=== PATIENT | female | born 1970 | race Caucasian/White ===

== ENCOUNTER 2022-11-24 09:06 | Outpatient (OUT) | payer MEDICARE, MEDICAID, SELFPAY ==
[2022-11-24 09:47] LABS: Estimated Average Glucose 174 mg/dL; Glycohemoglobin A1C 7.7 % (4.5-6.2)
[2022-11-24 10:36] LABS: Anion Gap 10.1; BUN Creatinine Ratio 10.7; Calcium 8.7 mg/dL (8.5-10.1); Carbon Dioxide 29.8 mmol/L (21.0-32.0); Chloride 103 mmol/L (98-107); Estimated GFR (African America >60 (>=60); Estimated GFR (Non-African Ame >60 (>=60); Glucose 181 mg/dL (74-106); Potassium 3.9 mmol/L (3.5-5.1); Sodium 139 mmol/L (136-145)
== END 2022-11-24 09:07 ==
PROVIDERS: PCP Nurse Practitioner; Visit Provider Nurse Practitioner
DX: E11.69 Type 2 diabetes mellitus with other specified complication (principal)
CPT/HCPCS: 36415; 80048; 83036

== ENCOUNTER 2023-03-10 06:42 | Outpatient (OUT) | payer MEDICARE, MEDICAID, SELFPAY ==
[2023-03-10 07:00] LABS: Bilirubin Urine NEGATIVE (NEGATIVE); Blood Urine NEGATIVE (NEGATIVE); Clarity Urine CLEAR (CLEAR); Color Urine LT. YELLOW (YELLOW); Glucose Urine UA >=1000 mg/dL (NEGATIVE); Ketones Urine 15 mg/dL (NEGATIVE); Leukocyte Esterase Urine NEGATIVE (NEGATIVE); Nitrite Urine NEGATIVE (NEGATIVE); Protein Urine NEGATIVE (NEG/TRACE); Urobilinogen Urine 0.2 EU/dL (0.2-1.0)
[2023-03-10 07:04] LABS: Basophils Absolute Auto 0.1 10^3/uL (0.0-0.1); Basophils Percent Auto 0.5 % (0.2-2.0); Eosinophils Absolute Auto 0.1 10^3/uL (0.0-0.7); Hemoglobin 15.1 g/dL (12.0-16.0); Immature Granulocytes Abs Auto 0.04 10^3/uL (0.00-0.03); Immature Granulocytes Pct Auto 0.4 % (0.0-0.5); Lymphocytes Absolute Auto 1.9 10^3/uL (1.2-3.8); Lymphocytes Percent Auto 20.1 % (20.5-60.0); Mean Corpuscular HGB Conc 31.5 g/dL (29.9-35.2); Mean Corpuscular Hemoglobin 29.2 pg (26.7-34.0); Mean Corpuscular Volume 92.7 fL (81.0-99.0); Monocytes Absolute Auto 0.6 10^3/uL (0.3-0.8); Monocytes Percent Auto 6.5 % (1.7-12.0); Neutrophils Absolute Auto 6.9 10^3/uL (1.4-6.5); Neutrophils Percent Auto 71.5 % (43.0-75.0); Platelet Count 285 10^3/uL (150-450); Red Blood Count 5.18 10^6/uL (4.20-5.40); Red Cell Distribution Width 13.4 % (11.0-15.0); White Blood Count 9.7 10^3/uL (4.0-11.0)
[2023-03-10 07:07] LABS: Bacteria Urine NONE SEEN #/HPF (NONE SEEN); Cast Seen? NONE SEEN #/LPF (NONE SEEN); Crystals Seen? None Seen #/HPF (None Seen); Mucus Urine NONE SEEN (NONE SEEN); RBC Urine 0-2 #/HPF (0-2); Squamous Epithelial Cell Urine NONE SEEN #/LPF (NONE/RARE); Urine Culture Indicated NO; WBC Urine 0-2 #/HPF (NONE SEEN)
[2023-03-10 07:11] LABS: Microalbumin Urine Random <1.3 mg/dL (<=30.0)
[2023-03-10 07:13] LABS: Estimated Average Glucose 137 mg/dL; Glycohemoglobin A1C 6.4 % (4.5-6.2)
[2023-03-10 07:38] LABS: Alanine Aminotransferase 33 U/L (14-59); Albumin Globulin Ratio 0.8; Albumin Level 3.4 g/dL (3.4-5.0); Alkaline Phosphatase 116 U/L (46-116); Anion Gap 13.5; Aspartate Amino Transferase 18 U/L (15-37); BUN Creatinine Ratio 18.5; Bilirubin Total 0.6 mg/dL (0.2-1.0); Calcium 9.2 mg/dL (8.5-10.1); Carbon Dioxide 29.2 mmol/L (21.0-32.0); Chloride 101 mmol/L (98-107); Chol HDL Ratio 3.1; Cholesterol 129 mg/dL (<=200); Estimated GFR (African America >60 (>=60); Estimated GFR (Non-African Ame >60 (>=60); Globulin 4.1 g/dL; Glucose 150 mg/dL (74-106); HDL Cholesterol 41 mg/dL (40-60); LDL Cholesterol Calculated 58.4 mg/dL; Potassium 3.7 mmol/L (3.5-5.1); Sodium 140 mmol/L (136-145); Total Protein 7.5 g/dL (6.4-8.2); Triglycerides 148 mg/dL (<=150); Uric Acid 4.3 mg/dL (2.6-6.0); VLDL CHOLESTEROL 29.6 mg/dL
== END 2023-03-10 06:43 | disposition home or self-care (01) ==
LOC: LAB 06:43
PROVIDERS: PCP Nurse Practitioner; Visit Provider Nurse Practitioner
DX: D64.9 Anemia, unspecified (principal); E11.69 Type 2 diabetes mellitus with other specified complication; E66.9 Obesity, unspecified; M10.9 Gout, unspecified; D50.9 Iron deficiency anemia, unspecified
CPT/HCPCS: 36415; 80053; 80061; 81001; 82043; 82306; 82728; 83036; 83540; 84550; 85025

== ENCOUNTER 2023-10-02 08:02 | Outpatient (OUT) | payer MEDICARE, MEDICAID, SELFPAY ==
[2023-10-02 11:44] LABS: Estimated Average Glucose 134 mg/dL; Glycohemoglobin A1C 6.3 % (4.5-6.2)
== END 2023-10-02 08:03 | disposition home or self-care (01) ==
LOC: LAB 08:04
PROVIDERS: PCP Nurse Practitioner; Visit Provider Nurse Practitioner
DX: E11.9 Type 2 diabetes mellitus without complications (principal)
CPT/HCPCS: 36415; 83036

== ENCOUNTER 2024-01-01 07:57 | Outpatient (OUT) | payer MEDICARE, MEDICAID, SELFPAY ==
--- OUTSIDE RECORDS SUMMARY | 2024-01-01 08:04 | XMS_ITS | CCD ---
Author Organization [facility] Care Team Providers Care Product Technology Scientist Name Role Phone AICHHOLZ, QUILLER OPERATOR ELVIA Attending Unavailable AICHHOLZ, QUILLER OPERATOR ELVIA Consulting Unavailable AICHHOLZ, QUILLER OPERATOR ELVIA Primary Care Unavailable AICHHOLZ, QUILLER OPERATOR ELVIA Admitting Unavailable AICHHOLZ, QUILLER OPERATOR ELVIA Consulting Unavailable AICHHOLZ, QUILLER OPERATOR ELVIA Primary Care Unavailable AICHHOLZ, QUILLER OPERATOR ELVIA Admitting Unavailable AICHHOLZ, QUILLER OPERATOR ELVIA Attending Unavailable AICHHOLZ, QUILLER OPERATOR ELVIA Consulting Unavailable AICHHOLZ, QUILLER OPERATOR ELVIA Primary Care Unavailable AICHHOLZ, QUILLER OPERATOR ELVIA Admitting Unavailable AICHHOLZ, QUILLER OPERATOR ELVIA Attending Unavailable AICHHOLZ, QUILLER OPERATOR ELVIA Consulting Unavailable AICHHOLZ, QUILLER OPERATOR ELVIA Primary Care Unavailable AICHHOLZ, QUILLER OPERATOR ELVIA Admitting Unavailable AICHHOLZ, QUILLER OPERATOR ELVIA Attending Unavailable Aichholz SEARCH PLANNER, Elvia Unavailable Ritesh Cain MD Primary Care Provider AICHHOLZ, ELVIA Attending Unavailable AICHHOLZ, ELVIA Attending Unavailable AICHHOLZ, ELVIA Attending Unavailable Allergies Allergy Classification Reported Allergen(s) Allergy Type Date of Onset Reaction(s) Facility (1 source) Codeine Drug Allergy [facility] (1 source) meloxicam Drug Allergy [facility] (1 source) Codeine Drug Allergy 02-28-2023 [facility] (1 source) meloxicam Drug Allergy 02-28-2023 [facility] Medications Current Medications Medication Drug Class(es) Dates Sig (Normalized) Sig (Original) allopurinol 100 mg oral tablet (1 source) Xanthine Oxidase Inhibitor Start: 06-28-19 End: 09-26-19 24 take 1 tablet by mouth in the morning allopurinol (Zyloprim) 100 MG tablet Indications: Gout, unspecified cause, unspecified chronicity, unspecified site Take 1 tablet (100 mg) by mouth in the morning. 90 tablet 1 06/28/2023 09/26/2023 Active atenolol 50 mg oral tablet (1 source) beta-Adrenergic Rupesh take 1 tablet by mouth in the morning atenolol (Tenormin) 50 MG tablet Take 50 mg by mouth in the morning. 0 Active atorvastatin 40 mg oral tablet (1 source) HMG-CoA Reductase Inhibitor Start: 07-16-19 End: 10-14-19 24 take 1 tablet by mouth in the morning atorvastatin (Lipitor) 40 MG tablet Indications: Mixed hyperlipidemia (CMS/HCC) Take 1 tablet (40 mg) by mouth in the morning. 90 tablet 1 07/16/2023 10/14/2023 Active Blood Glucose Monitoring Suppl w/Device kit (1 source) Blood Glucose Monitoring Suppl w/Device kit cetirizine hydrochloride 10 mg oral tablet (1 source) Histamine-1 Receptor Antagonist cetirizine (ZyrTEC) 10 MG tablet Take by mouth. 0 Active cholecalciferol 0.125 mg oral capsule (1 source) Vitamin D take 1 capsule by mouth in the morning cholecalciferol (Vitamin D-3) 125 MCG (5000 UT) capsule Take 5,000 Units by mouth in the morning. 0 Active Continuous Blood Gluc Consumer Analyst (FreeStyle Katherine 2 [place]) device (1 source) Continuous Blood Gluc Consumer Analyst (FreeStyle Katherine 2 [place]) device Continuous Blood Gluc Sensor (FreeStyle Katherine 2 Sensor) misc (1 source) Continuous Blood Gluc Sensor (FreeStyle Katherine 2 Sensor) misc empagliflozin 25 mg oral tablet (1 source) Sodium-Glucose Cotransporter 2 Inhibitor empagliflozin (Jardiance) 25 MG Take by mouth. 0 Active ferrous sulfate 325 mg delayed release oral tablet (1 source) ferrous sulfate 325 (65 Fe) MG EC tablet Take 325 mg by mouth in the morning and 325 mg at noon and 325 mg in the evening. Take with meals. Do not crush, chew, or split. . 0 Active fluconazole 150 mg oral tablet (1 source) Azole Antifungal Start: 06-12-19 24 fluconazole (Diflucan) 150 MG tablet Indications: Antibiotic-induced yeast infection 1 time dose, may repeat in 3 days if needed for yeast infection caused by atb 1 tablet 0 06/12/2023 Active glipiZIDE 5 mg oral tablet (1 source) Sulfonylurea Start: 06-12-19 24 take 1 tablet by mouth in the morning glipiZIDE (Glucotrol) 5 MG tablet Indications: Type 2 diabetes mellitus without complication, without long-term current use of insulin (CMS/HCC) Take 1 tablet (5 mg) by mouth in the morning. 30 tablet 5 06/12/2023 Active hydroCHLOROthiazide 25 mg oral tablet (1 source) Thiazide Diuretic take 1 tablet by mouth in the morning hydroCHLOROthiazide (HYDRODiuril) 25 MG tablet Take 25 mg by mouth in the morning. 0 Active lisinopril 40 mg oral tablet (1 source) Angiotensin Converting Enzyme Inhibitor take 1 tablet by mouth in the morning lisinopril 40 MG tablet Take 40 mg by mouth in the morning. 0 Active nystatin 459847 unt/ml topical cream (1 source) Polyene Antifungal nystatin (Mycostatin ) cream Apply topically 3 (three) times a day. 0 Active pantoprazole 40 mg delayed release oral tablet (1 source) Proton Pump Inhibitor take 1 tablet by mouth before mealtime pantoprazole (ProtoNix) 40 MG EC tablet Take 40 mg by mouth in the morning. Take before meals. Do not crush, chew, or split. . 0 Active polyethylene glycol 3350 99949 mg powder for oral solution (1 source) Osmotic Laxative polyethylene gl ycol, PEG, 3350 (Miralax) 17 g packet Take by mouth. 0 Active semaglutide 3 mg oral tablet (2 sources) take 1 tablet by mouth before mealtime semaglutide (Rybelsus) 3 MG tablet Take 3 mg by mouth in the morning. Take before meals. 0 Active take 1 tablet by mouth before me altime semaglutide (Rybelsus) 7 MG tablet Take 7 mg by mouth in the morning. Take before meals. 0 Active venlafaxine 75 mg oral tablet (1 source) Serotonin and Norepinephrine Reuptake Inhibitor take 1 tablet by mouth in the morning venlafaxine (Effexor) 75 MG tablet Take 75 mg by mouth in the morning and 75 mg before bedtime. 0 Active Problems Active Problems Problem Classification Problem Date Documented Da te Episodic/Chronic Diabetes mellitus with complications (5 sources) Type 2 diabetes mellitus with other specified complication; Translations: [TYPE 2 DM W/OTHER SPEC COMPLICATION] Onset: 2 Chronic Diabetes mellitus without complication (1 source) Type 2 diabetes mellitus without complication; Translations: [Type 2 diabetes mellitus without complications] Onset: 4 06-12-2023 Chronic Disorders of lipid metabolism (2 sources) Hyperlipidemia, unspecified; Translations: [Mixed hyperlipidemia] Onset: 2 06-12-2023 Chronic Disorders of teeth and jaw (1 source) Dental abscess; Translations: [Periapical abscess without sinus] Onset: 4 06-12-2023 Episodic Esophageal disorders (1 source) Gastroesophageal reflux disease; Translations: [Gastro-esophageal reflux disease without esophagitis] Onset: 4 06-12-2023 Chronic Essential hypertension (1 source) Benign essential hypertension; Translations: [Essential (primary) hypertension] Onset: 4 06-12-2023 Chronic Genitourinary symptoms and ill-defined conditions (5 sources) Dysuria; Translations: [Unspecified symptoms and signs involving the genitourinary system] Onset: 2 Episodic Gout and other crystal arthropathies (5 sources) Gout, unspecified; Translations: [Gout] Onset: 2 Chronic Mood disorders (2 sources) Recurrent major depressive episodes, moderate ; Translations: [Major depressive disorder, recurrent, moderate] Onset: 7 07-26-2023 Chronic Mycoses (1 source) Opportunistic mycosis; Translations: [Candidiasis, unspecified] Onset: 4 06-12-2023 Episodic Other gastrointestinal disorders (1 source) Constipation; Translations: [Constipation, unspecified] Onset: 4 06-12-2023 Episodic Other non-traumatic joint disorders (1 source) Pain in unspecified joint; Translations: [PAIN IN UNSPECIFIED JOINT] Onset: 2 Episodic Other nutritional; endocrine; and metabolic disorders (1 source) Morbid obesity; Translations: [Morbid (severe) obesity due to excess calories] Onset: 4 06-12-2023 Chronic Other screening for suspected conditions (not mental disorders or infectious disease) (3 sources) Patient encounter status; Translations: [Encounter for screening for malignant neoplasm of colon] Onset: 4 Resolved: 4 06-12-2023 Episodic Past or Other Problems Problem Classification Problem Date Documented Da te Episodic/Chronic Deficiency and other anemia (4 sources) Iron deficiency anemia, unspecified; Translations: [IRON DEFICIENCY ANEMIA UNSPECIFIED] Onset: 07-07-2021 Episodic Results Test Name Value Interpretation Reference Range Facility CULTURE URINEon 04-11-2022 CULTURE URINE Culture Observations: LIGHT GROWTH OF MIXED GENITAL SYL. NO POTENTIAL PATHOGENS SEEN. Normal [facility] Comment on above: Performed By: #### C MP, LIPID, URIC #### [facility] [address] [address] [address] Pearl Young LIPID PROFILEon 03-28-2022 CHOL-HDL RATIO NORM SEE BELOW Normal [facility] Comment on above: Result Comment: 3.3 - 4.4 LOW RISK 4.4 - 7.1 AVERAGE RISK 7.1 - 11.0 MODERATE RISK >11.0 HIGH RISK Performed By: #### C MP, LIPID, URIC #### [facility] [address] [address] [address] Pearl Young Cholesterol [Mass/Vol] 164 mg/dL Normal <=200 Th [facility] Comment on above: Performed By: #### C MP, LIPID, URIC #### [facility] [address] [address] [address] Pearl Young Cholesterol in HDL [Mass/Vol] 43 mg/dL Normal 40-60 [facility] Comment on above: Performed By: #### C MP, LIPID, URIC #### [facility] [address] [address] [address] Pearl Young Cholesterol in LDL [Mass/Vol] 93.8 mg/dL Normal [facility] Comment on above: Performed By: #### C MP, LIPID, URIC #### [facility] [address] [address] [address] Pearl Young Cholesterol.total/Chol esterol in HDL [Mass ratio] 3.8 {ratio} Normal [facility] Comment on above: Performed By: #### C MP, LIPID, URIC #### [facility] [address] [address] [address] Pearl Young HDL NORMAL > or = 60 mg/dl - LOW CARDIOVASCULAR RISK <40 mg/dl - HIGH CARDIOVASCULAR RISK Normal [facility] Comment on above: Performed By: #### C MP, LIPID, URIC #### [facility] [address] [address] [address] Pearl Young LDL CALC NORMAL SEE BELOW Normal [facility] Comment on above: Result Comment: <100 mg/dl OPTIMAL 100 - 129 mg/dl NEAR OR ABOVE OPTIMAL 130 - 159 mg/dl BORDERLINE HIGH 160 - 189 mg/dl HIGH >190 mg/dl VERY HIGH Performed By: #### C MP, LIPID, URIC #### [facility] [address] [address] [address] Pearl Young Triglyceride [Mass/Vol] 136 mg/dL Normal <=150 [facility] Comment on above: Performed By: #### C MP, LIPID, URIC #### [facility] [address] [address] [address] Pearl Young VLDL CALC 27.2 mg/dL Normal [facility] Comment on above: Performed By: #### C MP, LIPID, URIC #### [facility] [address] [address] [address] Pearl Young PROF 14(COMP METB)on 022 Albumin [Mass/Vol] 3.5 g/dL Normal 3.4-5.0 [facility] Comment on above: Performed By: #### C MP, LIPID, URIC #### [facility] [address] [address] [address] Pearl Young Albumin/Globulin [Mass ratio] 0.8 {ratio} Normal [facility] Comment on above: Performed By: #### C MP, LIPID, URIC #### [facility] [address] [address] [address] Pearl Young ALP [Catalytic activity/Vol] 117 U/L Critically high 46-116 [facility] Comment on above: Performed By: #### C MP, LIPID, URIC #### [facility] [address] [address] [address] Pearl Young ALT [Catalytic activity/Vol] 28 U/L Normal 14-59 [facility] Comment on above: Performed By: #### C MP, LIPID, URIC #### [facility] [address] [address] [address] Pearl Young Anion gap [Moles/Vol] 12.6 mmol/L Normal Th [facility] Comment on above: Performed By: #### C MP, LIPID, URIC #### [facility] [address] [address] [address] Pearl Young AST [Catalytic activity/Vol] 12 U/L Critically low 15-37 [facility] Comment on above: Performed By: #### C MP, LIPID, URIC #### [facility] [address] [address] [address] Pearl Young Bilirubin [Mass/Vol] 0.5 mg/dL Normal 0.2-1.0 [facility] Comment on above: Performed By: #### C MP, LIPID, URIC #### [facility] [address] [place] [address] Dr. Pearl oYung Calcium [Mass/Vol] 9.2 mg/dL Normal 8.5-10.1 [facility] Comment on above: Performed By: #### C MP, LIPID, URIC #### [facility] [address] [place] [address] Dr. Pearl Young Chloride [Moles/Vol] 104 mmol/L Normal 98-107 [facility] Comment on above: Performed By: #### C MP, LIPID, URIC #### [facility] [address] [place] [address] Dr. Pearl Young CO2 [Moles/Vol] 28.0 mmol/L Normal 21.0-32.0 [facility] Comment on above: Performed By: #### C MP, LIPID, URIC #### [facility] [address] [place] [address] Dr. Pearl Young Creatinine [Mass/Vol] 0.82 mg/dL Normal 0.55-1.02 [facility] Comment on above: Performed By: #### C MP, LIPID, URIC #### [facility] [address] [place] [address] Dr. Pearl Young EGFR-AF IRAQI >60 Normal >=60 [facility] Comment on above: Performed By: #### C MP, LIPID, URIC #### [facility] [address] [place] [address] Dr. Pearl Young EGFR-NON AF IRAQI >60 Normal >=60 [facility] Comment on above: Performed By: #### C MP, LIPID, URIC #### [facility] [address] [place] [address] Dr. Pearl Young Globulin (S) [Mass/Vol] 4.3 g/dL Normal [facility] Comment on above: Performed By: #### C MP, LIPID, URIC #### [facility] [address] [place] [address] Dr. Pearl Young Glucose [Mass/Vol] 170 mg/dL Critically high 74-[address] [facility] Comment on above: Performed By: #### C MP, LIPID, URIC #### [facility] [address] [place] [address] Dr. Pearl Young Potassium [Moles/Vol] 4.6 mmol/L Normal 3.5-5.1 [facility] Comment on above: Performed By: #### C MP, LIPID, URIC #### [facility] [address] [place] [address] Dr. Pearl Young Protein [Mass/Vol] 7.8 g/dL Normal 6.4-8.2 [facility] Comment on above: Performed By: #### C MP, LIPID, URIC #### [facility] [address] [place] [address] Dr. Pearl Young Sodium [Moles/Vol] 140 mmol/L Normal 136-145 [facility] Comment on above: Performed By: #### C MP, LIPID, URIC #### [facility] [address] [place] [address] Dr. Pearl Young Urea nitrogen [Mass/Vol] 14.0 mg/dL Normal 7.0-18.0 [facility] Comment on above: Performed By: #### C MP, LIPID, URIC #### [facility] [address] [place] [address] Dr. Pearl Young Urea nitrogen/Creatinine [Mass ratio] 17.1 mg/mg Normal [facility] Comment on above: Performed By: #### C MP, LIPID, URIC #### [facility] [address] [address] [address] Pearl Young SED RATE WESTERGRENon 2021 SED RATE 33 mm/hr Critically high <=20 [facility] Comment on above: Performed By: #### S EDR #### [facility] [address] [address] [address] Pearl Young URIC ACID SERUMon 03-28-2022 Urate [Mass/Vol] 4.2 mg/dL Normal 2.6-6.0 [facility] Comment on above: Performed By: #### C MP, LIPID, URIC #### [facility] [address] [place] [address] Dr. Pearl Young JUAN JOSE by IFAon 01-12-2022 Antinuclear Antibodies, IFA Negative Normal [facility] Comment on above: Result Comment: Nega tive <1:80 Borderline 1:80 Positive >1:80 ICAP nomenclature: AC-0 For more information about Hep-2 cell patterns use ANApatterns.org, the official website for the International Consensus on Antinuclear Antibody (JUAN JOSE) Patterns (ICAP). Performed By: #### A NAIFA #### [facility] [address] [place] [address] Dr. Pearl Young ANTISTREPTOLYSIN O AB (ASO)o n 01-12-2022 Antistreptolysin O Ab 45.6 IU/mL Normal 0.0-200.0 [facility] Comment on above: Performed By: #### C MP, LIPID, URIC #### [facility] [address] [place] [address] Dr. Pearl Young RHEUMATOID FACTORon 01-13-20 RA Latex Turbid. <10.0 Normal <14.0 [facility] Comment on above: Performed By: #### C MP, LIPID, URIC #### [facility] [address] [place] [address] Dr. Pearl Young CBC AUTO DIFFon 01-10-2022 BASO # 0.1 103/ul Normal 0.0-0.1 [facility] Comment on above: Performed By: #### C BC #### [facility] [address] [address] [address] Pearl Young Basophils/100 WBC (Bld) 0.6 % Normal 0.2-2.0 [facility] Comment on above: Performed By: #### C BC #### [facility] [address] [address] [address] Pearl Young EO # 0.2 103/ul Normal 0.0-0.7 [facility] Comment on above: Performed By: #### C BC #### [facility] [address] [place] [address] Dr. Pearl Young Eosinophils/100 WBC (Bld) 1.3 % Normal 0.9-7.0 [facility] Comment on above: Performed By: #### C BC #### [facility] [address] [place] [address] Dr. Pearl Young Erythrocyte distribution width (RBC) [Ratio] 14.9 % Normal 11.0-15.0 [facility] Comment on above: Performed By: #### C BC #### [facility] [address] [place] [address] Dr. Pearl Young Hematocrit (Bld) [Volume fraction] 50.2 % Critically high 36.0-48.0 [facility] Comment on above: Performed By: #### C BC #### [facility] [address] [place] [address] Dr. Pearl Young Hemoglobin (Bld) [Mass/Vol] 15.6 g/dL Normal 12.0-16.0 [facility] Comment on above: Performed By: #### C BC #### [facility] [address] [place] [address] Dr. Pearl Young IG # 0.07 10e3/ul Critically high 0.00-0.03 [facility] Comment on above: Performed By: #### C BC #### [facility] [address] [place] [address] Dr. Pearl Young IG % 0.6 % Critically high 0.0-0.5 [facility] Comment on above: Performed By: #### C BC #### [facility] [address] [place] [address] Dr. Pearl Young LYMPH # 2.3 103/ul Normal 1.2-3.8 [facility] Comment on above: Performed By: #### C BC #### [facility] [address] [place] [address] Dr. Pearl Young Lymphocytes/100 WBC (Bld) 19.2 % Critically low 20.5-60.0 [facility] Comment on above: Performed By: #### C BC #### [facility] [address] [place] [address] Dr. Pearl Young MANUAL DIFF REQ NO Normal [facility] Comment on above: Performed By: #### C BC #### [facility] [address] [place] [address] Dr. Pearl Young MCH (RBC) [Entitic mass] 28.9 pg Normal 26.7-34.0 [facility] Comment on above: Performed By: #### C BC #### [facility] [address] [place] [address] Dr. Pearl Young MCHC (RBC) [Mass/Vol] 31.1 g/dL Normal 29.9-35.2 [facility] Comment on above: Performed By: #### C BC #### [facility] [address] [place] [address] Dr. Pearl Young MCV (RBC) [Entitic vol] 93.0 fL Normal 81.0-99.0 [facility] Comment on above: Performed By: #### C BC #### [facility] [address] [place] [address] Dr. Pearl Young MONO # 0.9 103/ul Critically high 0.3-0.8 [facility] Comment on above: Performed By: #### C BC #### [facility] [address] [place] [address] Dr. Pearl Young Monocytes/100 WBC (Bld) 7.4 % Normal 1.7-12.0 [facility] Comment on above: Performed By: #### C BC #### [facility] [address] [place] [address] Dr. Pearl Young NEUT # 8.6 103/ul Critically high 1.4-6.5 [facility] Comment on above: Performed By: #### C BC #### [facility] [address] [place] [address] Dr. Pearl Young Neutrophils/100 WBC (Bld) 70.9 % Normal 43.0-75.0 [facility] Comment on above: Performed By: #### C BC #### [facility] [address] [place] [address] Dr. Pearl Young Platelet mean volume (Bld) [Entitic vol] 10.7 fL Normal 9.5-13.5 [facility] Comment on above: Performed By: #### C BC #### [facility] [address] [place] [address] Dr. Pearl Young PLT 267 103/ul Normal 150-450 [facility] Comment on above: Performed By: #### C BC #### [facility] [address] [place] [address] Dr. Pearl Young RBC 5.40 106/ul Normal 4.20-5.40 [facility] Comment on above: Performed By: #### C BC #### [facility] [address] [place] [address] Dr. Pearl Young WBC 12.1 103/ul Critically high 4.0-11.0 [facility] Comment on above: Performed By: #### C BC #### [facility] [address] [place] [address] Dr. Pearl Young CRPon 01-10-2022 CRP 1.8 mg/dL Critically high <=1.0 [facility] Comment on above: Performed By: #### C MP, LIPID, URIC #### [facility] [address] [place] [address] Dr. Pearl Young GLYCOHEMOGLOBIN A1Con 2021 ADA RECOMMENDATION SEE BELOW Normal [facility] Comment on above: Result Comment: ADA RECOMMENDED LIMIT 4.0 - 6.0 ADA THERAPEUTIC TARGET < 7.0 ACTION SUGGESTED > 7.0 Performed By: #### C MP, LIPID, URIC #### [facility] [address] [address] [address] Pearl Young Glucose [Mass/Vol] 154 mg/dL Normal [facility] Comment on above: Performed By: #### C MP, LIPID, URIC #### [facility] [address] [place] [address] Dr. Pearl Young HbA1c (Bld) [Mass fraction] 7.0 % Critically high 4.5-6.2 [facility] Comment on above: Performed By: #### C MP, LIPID, URIC #### [facility] [address] [place] [address] Dr. Pearl Young LIPID PROFILEon 01-10-2022 CHOL-HDL RATIO NORM SEE BELOW Normal [facility] Comment on above: Result Comment: 3.3 - 4.4 LOW RISK 4.4 - 7.1 AVERAGE RISK 7.1 - 11.0 MODERATE RISK >11.0 HIGH RISK Performed By: #### C MP, LIPID, URIC #### [facility] [address] [place] [address] Dr. Pearl Young Cholesterol [Mass/Vol] 176 mg/dL Normal <=200 Th [facility] Comment on above: Performed By: #### C MP, LIPID, URIC #### [facility] [address] [place] [address] Dr. Pearl Young Cholesterol in HDL [Mass/Vol] 46 mg/dL Normal 40-60 [facility] Comment on above: Performed By: #### C MP, LIPID, URIC #### [facility] [address] [place] [address] Dr. Pearl Young Cholesterol in LDL [Mass/Vol] 103.2 mg/dL Normal [facility] Comment on above: Performed By: #### C MP, LIPID, URIC #### [facility] [address] [place] [address] Dr. Pearl Young Cholesterol.total/Chol esterol in HDL [Mass ratio] 3.8 {ratio} Normal [facility] Comment on above: Performed By: #### C MP, LIPID, URIC #### [facility] [address] [address] [address] Pearl Young HDL NORMAL > or = 60 mg/dl - LOW CARDIOVASCULAR RISK <40 mg/dl - HIGH CARDIOVASCULAR RISK Normal [facility] Comment on above: Performed By: #### C MP, LIPID, URIC #### [facility] [address] [address] [address] Pearl Young LDL CALC NORMAL SEE BELOW Normal [facility] Comment on above: Result Comment: <100 mg/dl OPTIMAL 100 - 129 mg/dl NEAR OR ABOVE OPTIMAL 130 - 159 mg/dl BORDERLINE HIGH 160 - 189 mg/dl HIGH >190 mg/dl VERY HIGH Performed By: #### C MP, LIPID, URIC #### [facility] [address] [address] [address] Pearl Young Triglyceride [Mass/Vol] 134 mg/dL Normal <=150 [facility] Comment on above: Performed By: #### C MP, LIPID, URIC #### [facility] [address] [address] [address] Pearl Young VLDL CALC 26.8 mg/dL Normal [facility] Comment on above: Performed By: #### C MP, LIPID, URIC #### [facility] [address] [address] [address] Pearl Young MICROALBUMIN, RAND URon 08-0 mALB <1.3 Normal <=30.0 [facility] Comment on above: Performed By: #### C MP, LIPID, URIC #### [facility] [address] [address] [address] Pearl Young PROF 14(COMP METB)on 022 Albumin [Mass/Vol] 3.5 g/dL Normal 3.4-5.0 [facility] Comment on above: Performed By: #### C MP, LIPID, URIC #### [facility] [address] [address] [address] Pearl Young Albumin/Globulin [Mass ratio] 0.9 {ratio} Normal [facility] Comment on above: Performed By: #### C MP, LIPID, URIC #### [facility] [address] [address] [address] Pearl Young ALP [Catalytic activity/Vol] 110 U/L Normal 46-116 [facility] Comment on above: Performed By: #### C MP, LIPID, URIC #### [facility] [address] [address] [address] Pearl Young ALT [Catalytic activity/Vol] 44 U/L Normal 14-59 [facility] Comment on above: Performed By: #### C MP, LIPID, URIC #### [facility] [address] [place] [address] Dr. Pearl Young Anion gap [Moles/Vol] 11.6 mmol/L Normal [facility] Comment on above: Performed By: #### C MP, LIPID, URIC #### [facility] [address] [place] [address] Dr. Pearl Young AST [Catalytic activity/Vol] 21 U/L Normal 15-37 [facility] Comment on above: Performed By: #### C MP, LIPID, URIC #### [facility] [address] [place] [address] Dr. Pearl Young Bilirubin [Mass/Vol] 0.7 mg/dL Normal 0.2-1.0 [facility] Comment on above: Performed By: #### C MP, LIPID, URIC #### [facility] [address] [place] [address] Dr. Pearl Young Calcium [Mass/Vol] 9.3 mg/dL Normal 8.5-10.1 [facility] Comment on above: Performed By: #### C MP, LIPID, URIC #### [facility] [address] [place] [address] Dr. Pearl Young Chloride [Moles/Vol] 103 mmol/L Normal 98-107 [facility] Comment on above: Performed By: #### C MP, LIPID, URIC #### [facility] [address] [place] [address] Dr. Pearl Young CO2 [Moles/Vol] 30.6 mmol/L Normal 21.0-32.0 [facility] Comment on above: Performed By: #### C MP, LIPID, URIC #### [facility] [address] [address] [address] Pearl Young Creatinine [Mass/Vol] 0.82 mg/dL Normal 0.55-1.02 [facility] Comment on above: Performed By: #### C MP, LIPID, URIC #### [facility] [address] [address] [address] Pearl Young EGFR-AF IRAQI >60 Normal >=60 [facility] Comment on above: Performed By: #### C MP, LIPID, URIC #### [facility] [address] [address] [address] Pearl Young EGFR-NON AF IRAQI >60 Normal >=60 [facility] Comment on above: Performed By: #### C MP, LIPID, URIC #### [facility] [address] [address] [address] Pearl Young Globulin (S) [Mass/Vol] 4.1 g/dL Normal [facility] Comment on above: Performed By: #### C MP, LIPID, URIC #### [facility] [address] [address] [address] Pearl Young Glucose [Mass/Vol] 119 mg/dL Critically high 74-[address] [facility] Comment on above: Performed By: #### C MP, LIPID, URIC #### [facility] [address] [address] [address] Pearl Young Potassium [Moles/Vol] 4.2 mmol/L Normal 3.5-5.1 [facility] Comment on above: Performed By: #### C MP, LIPID, URIC #### [facility] [address] [address] [address] Pearl Young Protein [Mass/Vol] 7.6 g/dL Normal 6.4-8.2 [facility] Comment on above: Performed By: #### C MP, LIPID, URIC #### [facility] [address] [address] [address] Pearl Young Sodium [Moles/Vol] 141 mmol/L Normal 136-145 [facility] Comment on above: Performed By: #### C MP, LIPID, URIC #### [facility] [address] [place] [address] Dr. Pearl Young Urea nitrogen [Mass/Vol] 12.0 mg/dL Normal 7.0-18.0 [facility] Comment on above: Performed By: #### C MP, LIPID, URIC #### [facility] [address] [address] [address] Pearl Young Urea nitrogen/Creatinine [Mass ratio] 14.6 mg/mg Normal [facility] Comment on above: Performed By: #### C MP, LIPID, URIC #### [facility] [address] [place] [address] Dr. Pearl Young SED RATE [facility] 2021 SED RATE 37 mm/hr Critically high <=20 [facility] Comment on above: Performed By: #### S EDR #### [facility] [address] [place] [address] Dr. Pearl Young UA RANDOM W/MICROSCOPICon BACTERIA NONE SEEN Normal NONE SEEN [facility] Comment on above: Performed By: #### C MP, LIPID, URIC #### [facility] [address] [place] [address] Dr. Pearl Young Bilirubin Ql (U) Negative Normal NEGATIVE [facility] Comment on above: Performed By: #### C MP, LIPID, URIC #### [facility] [address] [place] [address] Dr. Pearl Young CAST SEEN Abnormal NONE SEEN [facility] Comment on above: Performed By: #### C MP, LIPID, URIC #### [facility] [address] [place] [address] Dr. Pearl Young Clarity (U) CLEAR Normal CLEAR [facility] Comment on above: Performed By: #### C MP, LIPID, URIC #### [facility] [address] [place] [address] Dr. Pearl Young Color (U) YELLOW Normal YELLOW [facility] Comment on above: Performed By: #### C MP, LIPID, URIC #### [facility] [address] [address] [address] Pearl Young Crystals LM Nom (Urine sed) NONE SEEN Normal NONE SEEN [facility] Comment on above: Performed By: #### C MP, LIPID, URIC #### [facility] [address] [address] [address] Pearl Young Epithelial cells LM Ql (Urine sed) RARE Normal NONE SEEN /RARE [facility] Comment on above: Performed By: #### C MP, LIPID, URIC #### [facility] [address] [place] [address] Dr. Pearl Young Glucose Ql (U) >1000 Abnormal NEGATIVE [facility] Comment on above: Performed By: #### C MP, LIPID, URIC #### [facility] [address] [place] [address] Dr. Pearl Young Hemoglobin Ql (U) Negative Normal NEGATIVE [facility] Comment on above: Performed By: #### C MP, LIPID, URIC #### [facility] [address] [address] [address] Pearl Young HYALINE CAST RARE Normal [facility] Comment on above: Performed By: #### C MP, LIPID, URIC #### [facility] [address] [place] [address] Dr. Pearl Young Ketones Ql (U) Negative Normal NEGATIVE [facility] Comment on above: Performed By: #### C MP, LIPID, URIC #### [facility] [address] [address] [address] Pearl Young LEUKOCYTES Negative Normal NEGATIVE [facility] Comment on above: Performed By: #### C MP, LIPID, URIC #### [facility] [address] [place] [address] Dr. Pearl Young MUCOUS TRACE Abnormal NONE SEEN [facility] Comment on above: Performed By: #### C MP, LIPID, URIC #### [facility] [address] [place] [address] Dr. Pearl Young Nitrite Ql (U) Negative Normal NEGATIVE [facility] Comment on above: Performed By: #### C MP, LIPID, URIC #### [facility] [address] [place] [address] Dr. Pearl Young pH (U) 6.0 [pH] Normal 5-9 [facility] Comment on above: Performed By: #### C MP, LIPID, URIC #### [facility] [address] [place] [address] Dr. Pearl Young RBC NONE SEEN Abnormal 0-2 [facility] Comment on above: Performed By: #### C MP, LIPID, URIC #### [facility] [address] [place] [address] Dr. Pearl Young SPEC GRAVITY 1.020 Normal 1.005-<=1.025 [facility] Comment on above: Performed By: #### C MP, LIPID, URIC #### [facility] [address] [place] [address] Dr. Pearl Young UA PROTEIN Negative Normal NEGATIVE/ TRACE [facility] Comment on above: Performed By: #### C MP, LIPID, URIC #### [facility] [address] [place] [address] Dr. Pearl Young Urobilinogen Qn (U) 0.2 {Jenny'U}/dL Normal 0.2 - 1. 0 [facility] Comment on above: Performed By: #### C MP, LIPID, URIC #### [facility] [address] [place] [address] Dr. Pearl Young WBC NONE SEEN Normal NONE SEEN [facility] Comment on above: Performed By: #### C MP, LIPID, URIC #### [facility] [address] [place] [address] Dr. Pearl Young URIC ACID SERUMon 01-10-2022 Urate [Mass/Vol] 6.1 mg/dL Critically high 2.6-6.0 [facility] Comment on above: Performed By: #### C MP, LIPID, URIC #### [facility] [address] [place] [address] Dr. Pearl Young CULTURE URINEon 07-09-2021 CULTURE URINE Isolate 1 Klebsiella pneumoniae 80,000 cfu/mL of ORGANISM 1 Klebsiella pneumoniae ANTIBIOTIC M.I.C RX STATUS Ampicillin >=32 R F Ampicillin/Sulbactam 4 S F Piperacillin/Tazobac rosario <=4 S F Cefazolin <=4 S F Ceftazidime <=1 S F Ceftriaxone <=1 S F Ertapenem <=0.5 S F Imipenem <=0.25 S F Amikacin <=2 S F Gentamicin <=1 S F Tobramycin <=1 S F Ciprofloxacin <=0.25 S F Levofloxacin <=0.12 S F Nitrofurantoin 64 I F Trimethoprim/Sulfame thoxazole <=20 S F Normal [facility] Comment on above: Performed By: #### C MP, LIPID, URIC #### [facility] [address] [place] [address] Dr. Pearl Young CBC AUTO DIFFon 07-07-2021 BASO # 0.1 103/ul Normal 0.0-0.1 [facility] Comment on above: Performed By: #### C MP, LIPID, URIC #### [facility] [address] [address] [address] Pearl Young Basophils/100 WBC (Bld) 0.6 % Normal 0.2-2.0 [facility] Comment on above: Performed By: #### C MP, LIPID, URIC #### [facility] [address] [place] [address] Dr. Pearl Young EO # 0.2 103/ul Normal 0.0-0.7 [facility] Comment on above: Performed By: #### C MP, LIPID, URIC #### [facility] [address] [address] [address] Pearl Young Eosinophils/100 WBC (Bld) 1.2 % Normal 0.9-7.0 [facility] Comment on above: Performed By: #### C MP, LIPID, URIC #### [facility] [address] [place] [address] Dr. Pearl Young Erythrocyte distribution width (RBC) [Ratio] 17.6 % Critically high 11.0-15.0 [facility] Comment on above: Performed By: #### C MP, LIPID, URIC #### [facility] [address] [place] [address] Dr. Pearl Young Hematocrit (Bld) [Volume fraction] 49.4 % Critically high 36.0-48.0 [facility] Comment on above: Performed By: #### C MP, LIPID, URIC #### [facility] [address] [place] [address] Dr. Pearl Young Hemoglobin (Bld) [Mass/Vol] 15.6 g/dL Normal 12.0-16.0 [facility] Comment on above: Performed By: #### C MP, LIPID, URIC #### [facility] [address] [place] [address] Dr. Pearl Young IG # 0.10 10e3/ul Critically high 0.00-0.03 [facility] Comment on above: Performed By: #### C MP, LIPID, URIC #### [facility] [address] [place] [address] Dr. Pearl Young IG % 0.8 % Critically high 0.0-0.5 [facility] Comment on above: Performed By: #### C MP, LIPID, URIC #### [facility] [address] [place] [address] Dr. Pearl Young LYMPH # 2.1 103/ul Normal 1.2-3.8 [facility] Comment on above: Performed By: #### C MP, LIPID, URIC #### [facility] [address] [place] [address] Dr. Pearl Young Lymphocytes/100 WBC (Bld) 16.7 % Critically low 20.5-60.0 [facility] Comment on above: Performed By: #### C MP, LIPID, URIC #### [facility] [address] [place] [address] Dr. Pearl Young MANUAL DIFF REQ NO Normal [facility] Comment on above: Performed By: #### C MP, LIPID, URIC #### [facility] [address] [place] [address] Dr. Pearl Young MCH (RBC) [Entitic mass] 28.4 pg Normal 26.7-34.0 [facility] Comment on above: Performed By: #### C MP, LIPID, URIC #### [facility] [address] [place] [address] Dr. Pearl Young MCHC (RBC) [Mass/Vol] 31.6 g/dL Normal 29.9-35.2 [facility] Comment on above: Performed By: #### C MP, LIPID, URIC #### [facility] [address] [place] [address] Dr. Pearl Young MCV (RBC) [Entitic vol] 89.8 fL Normal 81.0-99.0 [facility] Comment on above: Performed By: #### C MP, LIPID, URIC #### [facility] [address] [place] [address] Dr. Pearl Young MONO # 0.8 103/ul Normal 0.3-0.8 [facility] Comment on above: Performed By: #### C MP, LIPID, URIC #### [facility] [address] [place] [address] Dr. Pearl Young Monocytes/100 WBC (Bld) 6.7 % Normal 1.7-12.0 [facility] Comment on above: Performed By: #### C MP, LIPID, URIC #### [facility] [address] [place] [address] Dr. Pearl Young NEUT # 9.2 103/ul Critically high 1.4-6.5 [facility] Comment on above: Performed By: #### C MP, LIPID, URIC #### [facility] [address] [place] [address] Dr. Pearl Young Neutrophils/100 WBC (Bld) 74.0 % Normal 43.0-75.0 [facility] Comment on above: Performed By: #### C MP, LIPID, URIC #### [facility] [address] [place] [address] Dr. Pearl Young Platelet mean volume (Bld) [Entitic vol] 10.6 fL Normal 9.5-13.5 [facility] Comment on above: Performed By: #### C MP, LIPID, URIC #### [facility] [address] [address] [address] Pearl Young PLT 265 103/ul Normal 150-450 [facility] Comment on above: Performed By: #### C MP, LIPID, URIC #### [facility] [address] [address] [address] Pearl Yougn RBC 5.50 106/ul Critically high 4.20-5.40 [facility] Comment on above: Performed By: #### C MP, LIPID, URIC #### [facility] [address] [address] [address] Pearl Young WBC 12.4 103/ul Critically high 4.0-11.0 [facility] Comment on above: Performed By: #### C MP, LIPID, URIC #### [facility] [address] [place] [address] Dr. Pearl Young FERRITINon 07-07-2021 Ferritin [Mass/Vol] 41.0 ng/mL Normal 6.2-137.0 [facility] Comment on above: Performed By: #### F ERR, IRON #### [facility] [address] [address] [address] Pearl Young GLYCOHEMOGLOBIN A1Con 2021 ADA RECOMMENDATION ADA THERAPEUTIC TARGET 6.0 - 7.0 ACTION SUGGESTED > 7.0 Normal [facility] Comment on above: Performed By: #### C MP, LIPID, URIC #### [facility] [address] [address] [address] Pearl Young Glucose [Mass/Vol] 143 mg/dL Normal [facility] Comment on above: Performed By: #### C MP, LIPID, URIC #### [facility] [address] [address] [address] Pearl Young HbA1c (Bld) [Mass fraction] 6.6 % Critically high <=6.0 [facility] Comment on above: Performed By: #### C MP, LIPID, URIC #### [facility] [address] [place] [address] Dr. Pearl Young IRONon 07-07-2021 Iron [Mass/Vol] 166.0 ug/dL Normal 37.0-170.0 [facility] Comment on above: Performed By: #### F ERR, IRON #### [facility] [address] [address] [address] eParl Young PROF CHEM 8 (BAS METB)on Anion gap [Moles/Vol] 9.6 mmol/L Normal [facility] Comment on above: Performed By: #### B MP #### [facility] [address] [address] [address] Pearl Young Calcium [Mass/Vol] 9.5 mg/dL Normal 8.4-10.2 [facility] Comment on above: Performed By: #### B MP #### [facility] [address] [place] [address] Dr. Pearl Young Chloride [Moles/Vol] 102 mmol/L Normal 98-107 [facility] Comment on above: Performed By: #### B MP #### [facility] [address] [address] [address] Pearl Young CO2 [Moles/Vol] 31.2 mmol/L Critically high 22.0-30.0 [facility] Comment on above: Performed By: #### B MP #### [facility] [address] [place] [address] Dr. Pearl Young Creatinine [Mass/Vol] 0.78 mg/dL Normal 0.52-1.04 [facility] Comment on above: Performed By: #### B MP #### [facility] [address] [place] [address] Dr. Pearl Young EGFR-AF IRAQI >60 Normal >=60 [facility] Comment on above: Performed By: #### B MP #### [facility] [address] [address] [address] Pearl Young EGFR-NON AF IRAQI >60 Normal >=60 [facility] Comment on above: Performed By: #### B MP #### [facility] [address] [place] [address] Dr. Pearl Young Glucose [Mass/Vol] 99 mg/dL Normal 74-106 [facility] Comment on above: Performed By: #### B MP #### [facility] [address] [address] [address] Pearl Young Potassium [Moles/Vol] 3.8 mmol/L Normal 3.4-5.0 [facility] Comment on above: Performed By: #### B MP #### [facility] [address] [address] [address] Pearl Young Sodium [Moles/Vol] 139 mmol/L Normal 137-145 [facility] Comment on above: Performed By: #### B MP #### [facility] [address] [address] [address] Pearl Young Urea nitrogen [Mass/Vol] 12.0 mg/dL Normal 7.0-17.0 [facility] Comment on above: Performed By: #### B MP #### [facility] [address] [address] [address] Pearl Young Urea nitrogen/Creatinine [Mass ratio] 15.4 mg/mg Normal [facility] Comment on above: Performed By: #### B MP #### [facility] [id number] Pearl Young Encounters Encounter Date Encounter Type Care Provider Facility Start: 12-20-2023 End: 12-20-2023 ambulatory ELVIA AICHHOLZ Not Available Start: 09-13-2023 End: 09-13-2023 ambulatory ELVIA AICHHOLZ Not Available Start: 07-26-2023 Refill Elvia Aichholz SEARCH PLANNER [facility] Phone[facility] Comment on above: Major depressive dis order, recurrent episode, moderate (HCC) (CMS/HCC) (Primary Dx) Start: 06-12-2023 End: 06-12-2023 ambulatory ELVIA AICHHOLZ Not Available Start: 04-11-2022 End: 04-11-2022 ambulatory QUILLER OPERATOR ELVIA AICHHOLZ Facility:[facility] Start: 03-28-2022 End: 03-29-2022 ambulatory QUILLER OPERATOR ELVIA AICHHOLZ Facility:[facility] Start: 01-10-2022 End: 01-11-2022 ambulatory QUILLER OPERATOR ELVIA MAYOALEXSANDRA Facility:[facility] Start: 07-07-2021 End: 07-08-2021 ambulatory QUILLER OPERATOR ELVIA MAYOALEXSANDRA Facility:[facility] Procedures Date Procedure Procedure Detail Performing Clinician Start: 06-12-2023 Mammography Elvia brand SEARCH PLANNER Work Phone: Start: 06-12-2023 Microscopic observat ion [Identifier] in Cervix by Cyto stain Elvia Hall SEARCH PLANNER Work Phone: Plan of Treatment Date Care Activity Detail Author Start: 06-12-2026 Screening for malign ant neoplasm of cervix [facility] Start: 04-05-2025 Glaucoma screening Diabetes: R etinopathy Screening [facility] Start: 06-12-2024 Screening for malign ant neoplasm of breast Mammogram [facility] Start: 03-10-2024 Urine screening for protein Diabetes: Urine Protein Screening [facility] Start: 12-09-2023 Influenza vaccination Influenza Vacc ine (#1) [facility] Comment on above: Postponed from 02/09 (Patient Refused) Start: 09-13-2023 End: 09-13-2023 Patient encounter procedure 09/13/2023 4:30 PM EDT Office Visit [facility] [address] [place] [id number] Elvia Hall NP [address] [place] [id number] [facility] Start: 06-09-2023 Hemoglobin A1c measurement Diabetes: Hemoglobin A1C [facility] Start: 2002 Screening for malign ant neoplasm of cervix HPV/Cotest [facility] Start: 1972 Medicare Annual Well ness (AWV) Medicare Annual Wellness (AWV) [facility] Start: 1972 Screening for malign ant neoplasm of colon [facility] Payers Date Payer Category Payer Medicaid [facility] [id number] 2022-Present [phone] [address] [place] [address] Medicaid [id number] 2020 Medicare [employer] MEDICARE ADVANTAGE [facility] MEDICARE ADVANTAGE [id number] 2020-Present [address] [place] [address] [id number] 1972 Unknown [id number] 1972 Unknown [id number] 1972 Unknown [id number] 1972 Unknown [id number] 1972 Unknown [id number] 1972 Unknown [id number] 1972 Unknown [id number] 1959 Medicaid [id number] 1959 Unknown [id number] Social History Date Type Detail Facility Start: 06-10-2023 Tobacco smoking status [facility] Ex-smoke r [facility] End: 06-11-2013 History of tobacco use Current smoker [facility] End: 06-11-2013 History of tobacco use Cigarette Smoker [facility] Start: 06-12-2023 Alcohol intake Ex-drinker (finding) [facility] Start: 06-05-2023 End: 06-12-2023 History of Social function [facility] Start: 06-05-2023 End: 06-12-2023 Humiliation, Afraid, Rape, and Kick questionnaire [HARK] [facility] Within the last year , have you been afraid of your partner or ex-partner? No [facility] How often do you att end rastafari or pentecostalism services? Patient declined [facility] Are you now , , , , never or living with a partner? [facility] How often to you hav e a drink containing alcohol? Never [facility] How hard is it for y ou to pay for the very basics like food, housing, medical care, and heating Somewhat hard [facility] Do you feel stress - tense, restless, nervous, or anxious, or unable to sleep at night because your mind is troubled all the time - these days [OSQ] To some extent [facility] (I/We) worried wheth er (my/our) food would run out before (I/we) got money to buy more. Never true [facility] Start: 06-10-2023 Alcohol Comment caffeine: coffee,sod a [facility] Start: 1970 Sex Assigned At Not on file [facility] Evaluation note Note Date & Type Note Facility Evaluation note Diagnosis Major depressive disorder, recurrent episode, moderate (HCC) (CMS/HCC)- Primary Major depressive disorder, recurrent episode, moderate documented in this encounter [facility] Summary Purpose Family History No Family History Records FoundNo Family History Records Found Advance Directives No Advanced Directives Records FoundNo Advanced Directives Records Found Additional Source Comments INFORMATION SOURCE (unrecogn ized section and content) DATE CREATED AUTHOR 04/14/2022 [facility] DATE CREATED AUTHOR AUTHOR'S ORGANIZ ATION 12/26/2023 [facility] Care Teams (unrecognized sec tion and content) Product Technology Scientist Relationship Specialty Start Date End Date Ritesh Cain MD [address] [place] [address] PCP - General Family Medicine 01/15/23 Elvia Hall NP [address] [place] [address] Nurse Practitioner Family Medicine 01/15/23 FOR RECORDS PERTAINING TO PATIENTS WHO ARE OR HAVE BEEN ENROLLED IN A CHEMICAL DEPENDENCY/SUBSTANCEABUSE PROGRAM, SOME INFORMATION MAY BE OMITTED. This clinical summary was aggregated from multiple sources. Caution should be exercised in using it in the provision of clinical care. This summary normalizes information from multiple sources, and as a consequence, information in this document may materially change the coding, format and clinical context of patient data. In addition, data may be omitted in some cases. CLINICAL DECISIONS SHOULD BE BASED ON THE PRIMARY CLINICAL RECORDS. [facility] Delivered [facility]. provides no warranty or guarantee of the accuracy or completeness of information in this document.
[2024-01-01 08:25] LABS: Basophils Percent Auto 0.4 % (0.2-2.0); Eosinophils Absolute Auto 0.2 10^3/uL (0.0-0.7); Eosinophils Percent Auto 1.9 % (0.9-7.0); Hematocrit 49.9 % (36.0-48.0); Hemoglobin 16.2 g/dL (12.0-16.0); Immature Granulocytes Abs Auto 0.05 10^3/uL (0.00-0.03); Immature Granulocytes Pct Auto 0.5 % (0.0-0.5); Lymphocytes Absolute Auto 2.3 10^3/uL (1.2-3.8); Lymphocytes Percent Auto 24.3 % (20.5-60.0); Mean Corpuscular HGB Conc 32.5 g/dL (29.9-35.2); Mean Corpuscular Hemoglobin 30.4 pg (26.7-34.0); Mean Corpuscular Volume 93.6 fL (81.0-99.0); Mean Platelet Volume 10.6 fL (9.5-13.5); Monocytes Absolute Auto 0.6 10^3/uL (0.3-0.8); Monocytes Percent Auto 6.5 % (1.7-12.0); Neutrophils Absolute Auto 6.1 10^3/uL (1.4-6.5); Neutrophils Percent Auto 66.4 % (43.0-75.0); Platelet Count 268 10^3/uL (150-450); Red Blood Count 5.33 10^6/uL (4.20-5.40); Red Cell Distribution Width 13.4 % (11.0-15.0); White Blood Count 9.3 10^3/uL (4.0-11.0)
[2024-01-01 08:39] LABS: Creatinine Urine Random 69.99 mg/dL (20.00-300.00); Microalbumin Urine Random <1.3 mg/dL (<=30.0)
[2024-01-01 08:51] LABS: Bilirubin Urine NEGATIVE (NEGATIVE); Blood Urine NEGATIVE (NEGATIVE); Clarity Urine CLEAR (CLEAR); Color Urine LT. YELLOW (YELLOW); Glucose Urine UA >=1000 mg/dL (NEGATIVE); Ketones Urine NEGATIVE (NEGATIVE); Leukocyte Esterase Urine NEGATIVE (NEGATIVE); Nitrite Urine NEGATIVE (NEGATIVE); Protein Urine NEGATIVE (NEG/TRACE); Urobilinogen Urine 0.2 EU/dL (0.2-1.0)
[2024-01-01 08:56] LABS: Urine Microscopic Indicated NO
[2024-01-01 09:11] LABS: Estimated Average Glucose 126 mg/dL
[2024-01-01 09:12] LABS: Alanine Aminotransferase 24 U/L (14-59); Albumin Globulin Ratio 0.8; Albumin Level 3.2 g/dL (3.4-5.0); Alkaline Phosphatase 113 U/L (46-116); Anion Gap 12.3; Aspartate Amino Transferase 8 U/L (15-37); BUN Creatinine Ratio 22.5; Bilirubin Total 0.5 mg/dL (0.2-1.0); Calcium 8.6 mg/dL (8.5-10.1); Carbon Dioxide 28.6 mmol/L (21.0-32.0); Chloride 104 mmol/L (98-107); Chol HDL Ratio 2.7; Cholesterol 135 mg/dL (<=200); Estimated GFR (African America >60 (>=60); Estimated GFR (Non-African Ame >60 (>=60); Globulin 3.9 g/dL; Glucose 164 mg/dL (74-106); HDL Cholesterol 50 mg/dL (40-60); Potassium 3.9 mmol/L (3.5-5.1); Sodium 141 mmol/L (136-145); Total Protein 7.1 g/dL (6.4-8.2); Triglycerides 80 mg/dL (<=150); Uric Acid 3.7 mg/dL (2.6-6.0)
== END 2024-01-01 07:58 | disposition home or self-care (01) ==
PROVIDERS: PCP Nurse Practitioner; Visit Provider Nurse Practitioner
DX: E78.2 Mixed hyperlipidemia (principal); I10 Essential (primary) hypertension; E11.9 Type 2 diabetes mellitus without complications; E56.9 Vitamin deficiency, unspecified; M10.9 Gout, unspecified; R39.9 Unspecified symptoms and signs involving the genitourinary system
CPT/HCPCS: 36415; 80053; 80061; 81003; 82043; 82306; 82570; 83036; 84550; 85025; 87086; 87150; 87186

== ENCOUNTER 2024-03-13 12:38 | Outpatient (OUT) | payer MEDICARE, MEDICAID, SELFPAY ==
--- OUTSIDE RECORDS SUMMARY | 2024-03-13 12:56 | XMS_ITS | CCD ---
Author Organization [facility] Care Team Providers Care Pull Out Operator Name Role Phone AICHHOLZ, FRONT END ENGINEER ELVIA Attending Unavailable AICHHOLZ, FRONT END ENGINEER ELVIA Consulting Unavailable AICHHOLZ, FRONT END ENGINEER ELVIA Primary Care Unavailable AICHHOLZ, FRONT END ENGINEER ELVIA Admitting Unavailable AICHHOLZ, FRONT END ENGINEER ELVIA Consulting Unavailable AICHHOLZ, FRONT END ENGINEER ELVIA Primary Care Unavailable AICHHOLZ, FRONT END ENGINEER ELVIA Admitting Unavailable AICHHOLZ, FRONT END ENGINEER ELVIA Attending Unavailable AICHHOLZ, FRONT END ENGINEER ELVIA Consulting Unavailable AICHHOLZ, FRONT END ENGINEER ELVIA Primary Care Unavailable AICHHOLZ, FRONT END ENGINEER ELVIA Admitting Unavailable AICHHOLZ, FRONT END ENGINEER ELVIA Attending Unavailable AICHHOLZ, FRONT END ENGINEER ELVIA Consulting Unavailable AICHHOLZ, FRONT END ENGINEER ELVIA Primary Care Unavailable AICHHOLZ, FRONT END ENGINEER ELVIA Admitting Unavailable AICHHOLZ, FRONT END ENGINEER ELVIA Attending Unavailable Aichholz CHARTER BOAT OPERATOR, Elvia Unavailable Ritesh Cain MD Primary Care Provider AICHHOLZ, ELVIA Attending Unavailable AICHHOLZ, ELVIA Attending Unavailable AICHHOLZ, ELVIA Attending Unavailable Allergies Allergy Classification Reported Allergen(s) Allergy Type Date of Onset Reaction(s) Facility (1 source) Codeine Drug Allergy [facility] (1 source) meloxicam Drug Allergy [facility] (1 source) Codeine Drug Allergy 02-28-2023 [facility] (1 source) meloxicam Drug Allergy 02-28-2023 [facility] Medications Current Medications Medication Drug Class(es) [...] the morning. 0 Active Continuous Blood Gluc Medical Record Specialist ([employer] [facility] [employer]) device (1 source) Continuous Blood Gluc Medical Record Specialist ([employer] [facility] [employer]) device Continuous Blood Gluc Sensor (FreeStyle Katherine [...] mouth in the morning. 0 Active nystatin 069859 unt/ml topical cream (1 source) Polyene Antifungal [...] split. . 0 Active polyethylene glycol 3350 62511 mg powder for oral solution (1 source) [...] GENITAL SYL. NO POTENTIAL PATHOGENS SEEN. Normal [facility] Comment on above: Performed By: #### C MP, LIPID, URIC #### [facility] [address] [address] [address] Pearl Young LIPID PROFILEon 03-28-2022 CHOL-HDL RATIO NORM SEE BELOW Normal [facility] Comment on above: Result Comment: 3.3 - 4.4 LOW RISK 4.4 - 7.1 AVERAGE RISK 7.1 - 11.0 MODERATE RISK >11.0 HIGH RISK Performed By: #### C MP, LIPID, URIC #### [facility] [address] [address] [address] Pearl Young Cholesterol [Mass/Vol] 164 mg/dL Normal <=200 [facility] Comment on above: Performed By: #### C MP, LIPID, URIC #### [facility] [address] [address] [address] Pearl Young Cholesterol in HDL [Mass/Vol] 43 mg/dL Normal 40-60 [facility] Comment on above: Performed By: #### C MP, LIPID, URIC #### [facility] [address] [address] [address] Pearl Young Cholesterol in LDL [Mass/Vol] 93.8 mg/dL Normal [facility] Comment on above: Performed By: #### C MP, LIPID, URIC #### [facility] [address] [address] [address] Pearl Young Cholesterol.total/Chol esterol in HDL [Mass ratio] 3.8 {ratio} Normal [facility] Comment on above: Performed By: #### C MP, LIPID, URIC #### [facility] [address] [address] [address] Pearl Young HDL NORMAL > or = 60 mg/dl - LOW CARDIOVASCULAR RISK <40 mg/dl - HIGH CARDIOVASCULAR RISK Normal [facility] Comment on above: Performed By: #### C MP, LIPID, URIC #### [facility] [address] [address] [address] Pearl Young LDL CALC NORMAL SEE BELOW Normal [facility] Comment on above: Result Comment: <100 mg/dl OPTIMAL 100 - 129 mg/dl NEAR OR ABOVE OPTIMAL 130 - 159 mg/dl BORDERLINE HIGH 160 - 189 mg/dl HIGH >190 mg/dl VERY HIGH Performed By: #### C MP, LIPID, URIC #### [facility] [address] [address] [address] Pearl Young Triglyceride [Mass/Vol] 136 mg/dL Normal <=150 [facility] Comment on above: Performed By: #### C MP, LIPID, URIC #### [facility] [address] [address] [address] Pearl Young VLDL CALC 27.2 mg/dL Normal [facility] Comment on above: Performed By: #### C MP, LIPID, URIC #### [facility] [address] [address] [address] Pearl Young PROF 14(COMP METB)on 022 Albumin [Mass/Vol] 3.5 g/dL Normal 3.4-5.0 [facility] Comment on above: Performed By: #### C MP, LIPID, URIC #### [facility] [address] [address] [address] Pearl Young Albumin/Globulin [Mass ratio] 0.8 {ratio} Normal [facility] Comment on above: Performed By: #### C MP, LIPID, URIC #### [facility] [address] [address] [address] Pearl Young ALP [Catalytic activity/Vol] 117 U/L Critically high 46-116 [facility] Comment on above: Performed By: #### C MP, LIPID, URIC #### [facility] [address] [address] [address] Pearl Young ALT [Catalytic activity/Vol] 28 U/L Normal 14-59 [facility] Comment on above: Performed By: #### C MP, LIPID, URIC #### [facility] [address] [address] [address] Pearl Young Anion gap [Moles/Vol] 12.6 mmol/L Normal [facility] Comment on above: Performed By: #### C MP, LIPID, URIC #### [facility] [address] [address] [address] Pearl Young AST [Catalytic activity/Vol] 12 U/L Critically low 15-37 [facility] Comment on above: Performed By: #### C MP, LIPID, URIC #### [facility] [address] [address] [address] Pearl Young Bilirubin [Mass/Vol] 0.5 mg/dL Normal 0.2-1.0 [facility] Comment on above: Performed By: #### C MP, LIPID, URIC #### [facility] [address] [place] [address] Dr. Pearl Young Calcium [Mass/Vol] 9.2 mg/dL Normal 8.5-10.1 [facility] Comment on above: Performed By: #### C MP, LIPID, URIC #### [facility] [address] [place] [address] Dr. Pearl Young Chloride [Moles/Vol] 104 mmol/L Normal 98-107 [facility] Comment on above: Performed By: #### C MP, LIPID, URIC #### [facility] [address] [place] [address] Dr. Pearl Young CO2 [Moles/Vol] 28.0 mmol/L Normal 21.0-32.0 [facility] Comment on above: Performed By: #### C MP, LIPID, URIC #### [facility] [address] [place] [address] Dr. Pearl Young Creatinine [Mass/Vol] 0.82 mg/dL Normal 0.55-1.02 [facility] Comment on above: Performed By: #### C MP, LIPID, URIC #### [facility] [address] [place] [address] Dr. Pearl Young EGFR-AF ECUADOREAN >60 Normal >=60 [facility] Comment on above: Performed By: #### C MP, LIPID, URIC #### [facility] [address] [place] [address] Dr. Pearl Young EGFR-NON AF ECUADOREAN >60 Normal >=60 [facility] Comment on above: Performed By: #### C MP, LIPID, URIC #### [facility] [address] [place] [address] Dr. Pearl Young Globulin (S) [Mass/Vol] 4.3 g/dL Normal [facility] Comment on above: Performed By: #### C MP, LIPID, URIC #### [facility] [address] [place] [address] Dr. Pearl Young Glucose [Mass/Vol] 170 mg/dL Critically high 74-106 [facility] Comment on above: Performed By: #### C MP, LIPID, URIC #### [facility] [address] [place] [address] Dr. Pearl Young Potassium [Moles/Vol] 4.6 mmol/L Normal 3.5-5.1 [facility] Comment on above: Performed By: #### C MP, LIPID, URIC #### [facility] [address] [place] [address] Dr. Pearl Young Protein [Mass/Vol] 7.8 g/dL Normal 6.4-8.2 [facility] Comment on above: Performed By: #### C MP, LIPID, URIC #### [facility] [address] [place] [address] Dr. Pearl Young Sodium [Moles/Vol] 140 mmol/L Normal 136-145 [facility] Comment on above: Performed By: #### C MP, LIPID, URIC #### [facility] [address] [place] [address] Dr. Pearl Young Urea nitrogen [Mass/Vol] 14.0 mg/dL Normal 7.0-18.0 [facility] Comment on above: Performed By: #### C MP, LIPID, URIC #### [facility] [address] [place] [address] Dr. Pearl Young Urea nitrogen/Creatinine [Mass ratio] 17.1 mg/mg Normal [facility] Comment on above: Performed By: #### C MP, LIPID, URIC #### [facility] [address] [address] [address] Pearl Young SED RATE WESTERGRENon 2021 SED RATE 33 mm/hr Critically high <=20 [facility] Comment on above: Performed By: #### S EDR #### [facility] [address] [address] [address] Pearl Young URIC ACID SERUMon 03-28-2022 Urate [Mass/Vol] 4.2 mg/dL Normal 2.6-6.0 [facility] Comment on above: Performed By: #### C MP, LIPID, URIC #### [facility] [address] [place] [address] Dr. Pearl Young JUAN JOSE by IFAon 01-12-2022 Antinuclear Antibodies, IFA Negative Normal [facility] Comment on above: Result Comment: Nega tive <1:80 Borderline 1:80 Positive >1:80 ICAP nomenclature: AC-0 For more information about Hep-2 cell patterns use ANApatterns.org, the official website for the International Consensus on Antinuclear Antibody (JUAN JOSE) Patterns (ICAP). Performed By: #### A NAIFA #### [facility] [address] [place] [address] Dr. Pearl Young ANTISTREPTOLYSIN O AB (ASO)o n 01-12-2022 Antistreptolysin O Ab 45.6 IU/mL Normal 0.0-200.0 [facility] Comment on above: Performed By: #### C MP, LIPID, URIC #### [facility] [address] [place] [address] Dr. Pearl Young RHEUMATOID FACTORon 01-13-20 RA Latex Turbid. <10.0 Normal <14.0 [facility] Comment on above: Performed By: #### C MP, LIPID, URIC #### [facility] [address] [place] [address] Dr. Pearl Young CBC AUTO DIFFon 01-10-2022 BASO # 0.1 103/ul Normal 0.0-0.1 [facility] Comment on above: Performed By: #### C BC #### [facility] [address] [address] [address] Pearl Young Basophils/100 WBC (Bld) 0.6 % Normal 0.2-2.0 [facility] Comment on above: Performed By: #### C BC #### [facility] [address] [address] [address] Pearl Young EO # 0.2 103/ul Normal 0.0-0.7 [facility] Comment on above: Performed By: #### C BC #### [facility] [address] [place] [address] Dr. Pearl Young Eosinophils/100 WBC (Bld) 1.3 % Normal 0.9-7.0 [facility] Comment on above: Performed By: #### C BC #### [facility] [address] [place] [address] Dr. Pearl Young Erythrocyte distribution width (RBC) [Ratio] 14.9 % Normal 11.0-15.0 [facility] Comment on above: Performed By: #### C BC #### [facility] [address] [place] [address] Dr. Pearl Young Hematocrit (Bld) [Volume fraction] 50.2 % Critically high 36.0-48.0 [facility] Comment on above: Performed By: #### C BC #### [facility] [address] [place] [address] Dr. Pearl Young Hemoglobin (Bld) [Mass/Vol] 15.6 g/dL Normal 12.0-16.0 [facility] Comment on above: Performed By: #### C BC #### [facility] [address] [place] [address] Dr. Pearl Young IG # 0.07 10e3/ul Critically high 0.00-0.03 [facility] Comment on above: Performed By: #### C BC #### [facility] [address] [place] [address] Dr. Pearl Young IG % 0.6 % Critically high 0.0-0.5 [facility] Comment on above: Performed By: #### C BC #### [facility] [address] [place] [address] Dr. Pearl Young LYMPH # 2.3 103/ul Normal 1.2-3.8 [facility] Comment on above: Performed By: #### C BC #### [facility] [address] [place] [address] Dr. Pearl Young Lymphocytes/100 WBC (Bld) 19.2 % Critically low 20.5-60.0 [facility] Comment on above: Performed By: #### C BC #### [facility] [address] [place] [address] Dr. Pearl Young MANUAL DIFF REQ NO Normal [facility] Comment on above: Performed By: #### C BC #### [facility] [address] [place] [address] Dr. Pearl Young MCH (RBC) [Entitic mass] 28.9 pg Normal 26.7-34.0 [facility] Comment on above: Performed By: #### C BC #### [facility] [address] [place] [address] Dr. Pearl Young MCHC (RBC) [Mass/Vol] 31.1 g/dL Normal 29.9-35.2 [facility] Comment on above: Performed By: #### C BC #### [facility] [address] [place] [address] Dr. Pearl Young MCV (RBC) [Entitic vol] 93.0 fL Normal 81.0-99.0 [facility] Comment on above: Performed By: #### C BC #### [facility] [address] [place] [address] Dr. Pearl Young MONO # 0.9 103/ul Critically high 0.3-0.8 [facility] Comment on above: Performed By: #### C BC #### [facility] [address] [place] [address] Dr. Pearl Young Monocytes/100 WBC (Bld) 7.4 % Normal 1.7-12.0 [facility] Comment on above: Performed By: #### C BC #### [facility] [address] [place] [address] Dr. Pearl Young NEUT # 8.6 103/ul Critically high 1.4-6.5 [facility] Comment on above: Performed By: #### C BC #### [facility] [address] [place] [address] Dr. Pearl Yougn Neutrophils/100 WBC (Bld) 70.9 % Normal 43.0-75.0 [facility] Comment on above: Performed By: #### C BC #### [facility] [address] [place] [address] Dr. Pearl Young Platelet mean volume (Bld) [Entitic vol] 10.7 fL Normal 9.5-13.5 [facility] Comment on above: Performed By: #### C BC #### [facility] [address] [place] [address] Dr. Pearl Young PLT 267 103/ul Normal 150-450 [facility] Comment on above: Performed By: #### C BC #### [facility] [address] [place] [address] Dr. Pearl Young RBC 5.40 106/ul Normal 4.20-5.40 [facility] Comment on above: Performed By: #### C BC #### [facility] [address] [place] [address] Dr. Pearl Young WBC 12.1 103/ul Critically high 4.0-11.0 [facility] Comment on above: Performed By: #### C BC #### [facility] [address] [place] [address] Dr. Pearl Young CRPon 01-10-2022 CRP 1.8 mg/dL Critically high <=1.0 [facility] Comment on above: Performed By: #### C MP, LIPID, URIC #### [facility] [address] [place] [address] Dr. Pearl Young GLYCOHEMOGLOBIN A1Con 2021 ADA RECOMMENDATION SEE BELOW Normal [facility] Comment on above: Result Comment: ADA RECOMMENDED LIMIT 4.0 - 6.0 ADA THERAPEUTIC TARGET < 7.0 ACTION SUGGESTED > 7.0 Performed By: #### C MP, LIPID, URIC #### [facility] [address] [address] [address] Pearl Yonug Glucose [Mass/Vol] 154 mg/dL Normal [facility] Comment on above: Performed By: #### C MP, LIPID, URIC #### [facility] [address] [place] [address] Dr. Pearl Young HbA1c (Bld) [Mass fraction] 7.0 % Critically high 4.5-6.2 [facility] Comment on above: Performed By: #### C MP, LIPID, URIC #### [facility] [address] [place] [address] Dr. Pearl Young LIPID PROFILEon 01-10-2022 CHOL-HDL RATIO NORM SEE BELOW Normal [facility] Comment on above: Result Comment: 3.3 - 4.4 LOW RISK 4.4 - 7.1 AVERAGE RISK 7.1 - 11.0 MODERATE RISK >11.0 HIGH RISK Performed By: #### C MP, LIPID, URIC #### [facility] [address] [place] [address] Dr. Pearl Young Cholesterol [Mass/Vol] 176 mg/dL Normal <=200 Th [facility] Comment on above: Performed By: #### C MP, LIPID, URIC #### [facility] [address] [place] [address] Dr. Pearl Young Cholesterol in HDL [Mass/Vol] 46 mg/dL Normal 40-60 [facility] Comment on above: Performed By: #### C MP, LIPID, URIC #### [facility] [address] [place] [address] Dr. Pearl Young Cholesterol in LDL [Mass/Vol] 103.2 mg/dL Normal [facility] Comment on above: Performed By: #### C MP, LIPID, URIC #### [facility] [address] [place] [address] Dr. Pearl Young Cholesterol.total/Chol esterol in HDL [Mass ratio] 3.8 {ratio} Normal [facility] Comment on above: Performed By: #### C MP, LIPID, URIC #### [facility] [address] [address] [address] Pearl Young HDL NORMAL > or = 60 mg/dl - LOW CARDIOVASCULAR RISK <40 mg/dl - HIGH CARDIOVASCULAR RISK Normal [facility] Comment on above: Performed By: #### C MP, LIPID, URIC #### [facility] [address] [address] [address] Pearl Young LDL CALC NORMAL SEE BELOW Normal [facility] Comment on above: Result Comment: <100 mg/dl OPTIMAL 100 - 129 mg/dl NEAR OR ABOVE OPTIMAL 130 - 159 mg/dl BORDERLINE HIGH 160 - 189 mg/dl HIGH >190 mg/dl VERY HIGH Performed By: #### C MP, LIPID, URIC #### [facility] [address] [address] [address] Pearl Young Triglyceride [Mass/Vol] 134 mg/dL Normal <=150 [facility] Comment on above: Performed By: #### C MP, LIPID, URIC #### [facility] [address] [address] [address] Pearl Young VLDL CALC 26.8 mg/dL Normal [facility] Comment on above: Performed By: #### C MP, LIPID, URIC #### [facility] [address] [address] [address] Pearl Young MICROALBUMIN, RAND URon 08-0 mALB <1.3 Normal <=30.0 [facility] Comment on above: Performed By: #### C MP, LIPID, URIC #### [facility] [address] [address] [address] Pearl Young PROF 14(COMP METB)on 022 Albumin [Mass/Vol] 3.5 g/dL Normal 3.4-5.0 [facility] Comment on above: Performed By: #### C MP, LIPID, URIC #### [facility] [address] [address] [address] Pearl Young Albumin/Globulin [Mass ratio] 0.9 {ratio} Normal [facility] Comment on above: Performed By: #### C MP, LIPID, URIC #### [facility] [address] [address] [address] Pearl Young ALP [Catalytic activity/Vol] 110 U/L Normal 46-116 [facility] Comment on above: Performed By: #### C MP, LIPID, URIC #### [facility] [address] [address] [address] Pearl Young ALT [Catalytic activity/Vol] 44 U/L Normal 14-59 [facility] Comment on above: Performed By: #### C MP, LIPID, URIC #### [facility] [address] [place] [address] Dr. Pearl Young Anion gap [Moles/Vol] 11.6 mmol/L Normal [facility] Comment on above: Performed By: #### C MP, LIPID, URIC #### [facility] [address] [place] [address] Dr. Pearl Young AST [Catalytic activity/Vol] 21 U/L Normal 15-37 [facility] Comment on above: Performed By: #### C MP, LIPID, URIC #### [facility] [address] [place] [address] Dr. Pearl Young Bilirubin [Mass/Vol] 0.7 mg/dL Normal 0.2-1.0 [facility] Comment on above: Performed By: #### C MP, LIPID, URIC #### [facility] [address] [place] [address] Dr. Pearl Young Calcium [Mass/Vol] 9.3 mg/dL Normal 8.5-10.1 [facility] Comment on above: Performed By: #### C MP, LIPID, URIC #### [facility] [address] [place] [address] Dr. Pearl Young Chloride [Moles/Vol] 103 mmol/L Normal 98-107 [facility] Comment on above: Performed By: #### C MP, LIPID, URIC #### [facility] [address] [place] [address] Dr. Pearl Young CO2 [Moles/Vol] 30.6 mmol/L Normal 21.0-32.0 [facility] Comment on above: Performed By: #### C MP, LIPID, URIC #### [facility] [address] [address] [address] Pearl Young Creatinine [Mass/Vol] 0.82 mg/dL Normal 0.55-1.02 [facility] Comment on above: Performed By: #### C MP, LIPID, URIC #### [facility] [address] [address] [address] Pearl Young EGFR-AF ECUADOREAN >60 Normal >=60 [facility] Comment on above: Performed By: #### C MP, LIPID, URIC #### [facility] [address] [address] [address] Pearl Young EGFR-NON AF ECUADOREAN >60 Normal >=60 [facility] Comment on above: Performed By: #### C MP, LIPID, URIC #### [facility] [address] [address] [address] Pearl Young Globulin (S) [Mass/Vol] 4.1 g/dL Normal [facility] Comment on above: Performed By: #### C MP, LIPID, URIC #### [facility] [address] [address] [address] Pearl Young Glucose [Mass/Vol] 119 mg/dL Critically high 74-106 [facility] Comment on above: Performed By: #### C MP, LIPID, URIC #### [facility] [address] [address] [address] Pearl Young Potassium [Moles/Vol] 4.2 mmol/L Normal 3.5-5.1 [facility] Comment on above: Performed By: #### C MP, LIPID, URIC #### [facility] [address] [address] [address] Pearl Young Protein [Mass/Vol] 7.6 g/dL Normal 6.4-8.2 [facility] Comment on above: Performed By: #### C MP, LIPID, URIC #### [facility] [address] [address] [address] Pearl Young Sodium [Moles/Vol] 141 mmol/L Normal 136-145 [facility] Comment on above: Performed By: #### C MP, LIPID, URIC #### [facility] [address] [place] [address] Dr. Pearl Young Urea nitrogen [Mass/Vol] 12.0 mg/dL Normal 7.0-18.0 [facility] Comment on above: Performed By: #### C MP, LIPID, URIC #### [facility] [address] [address] [address] Pearl Young Urea nitrogen/Creatinine [Mass ratio] 14.6 mg/mg Normal [facility] Comment on above: Performed By: #### C MP, LIPID, URIC #### [facility] [address] [place] [address] Dr. Pearl Young SED RATE [facility] 2021 SED RATE 37 mm/hr Critically high <=20 [facility] Comment on above: Performed By: #### S EDR #### [facility] [address] [place] [address] Dr. Pearl Young UA RANDOM W/MICROSCOPICon BACTERIA NONE SEEN Normal NONE SEEN [facility] Comment on above: Performed By: #### C MP, LIPID, URIC #### [facility] [address] [place] [address] Dr. Pearl Young Bilirubin Ql (U) Negative Normal NEGATIVE [facility] Comment on above: Performed By: #### C MP, LIPID, URIC #### [facility] [address] [place] [address] Dr. Pearl Young CAST SEEN Abnormal NONE SEEN [facility] Comment on above: Performed By: #### C MP, LIPID, URIC #### [facility] [address] [place] [address] Dr. Pearl Young Clarity (U) CLEAR Normal CLEAR [facility] Comment on above: Performed By: #### C MP, LIPID, URIC #### [facility] [address] [place] [address] Dr. Pearl Young Color (U) YELLOW Normal YELLOW [facility] Comment on above: Performed By: #### C MP, LIPID, URIC #### [facility] [address] [address] [address] Pearl Young Crystals LM Nom (Urine sed) NONE SEEN Normal NONE SEEN [facility] Comment on above: Performed By: #### C MP, LIPID, URIC #### [facility] [address] [address] [address] Pearl Young Epithelial cells LM Ql (Urine sed) RARE Normal NONE SEEN /RARE [facility] Comment on above: Performed By: #### C MP, LIPID, URIC #### [facility] [address] [place] [address] Dr. Pearl Young Glucose Ql (U) >1000 Abnormal NEGATIVE [facility] Comment on above: Performed By: #### C MP, LIPID, URIC #### [facility] [address] [place] [address] Dr. Pearl Young Hemoglobin Ql (U) Negative Normal NEGATIVE [facility] Comment on above: Performed By: #### C MP, LIPID, URIC #### [facility] [address] [address] [address] Pearl Young HYALINE CAST RARE Normal [facility] Comment on above: Performed By: #### C MP, LIPID, URIC #### [facility] [address] [place] [address] Dr. Pearl Young Ketones Ql (U) Negative Normal NEGATIVE [facility] Comment on above: Performed By: #### C MP, LIPID, URIC #### [facility] [address] [address] [address] Pearl Young LEUKOCYTES Negative Normal NEGATIVE [facility] Comment on above: Performed By: #### C MP, LIPID, URIC #### [facility] [address] [place] [address] Dr. Pearl Young MUCOUS TRACE Abnormal NONE SEEN [facility] Comment on above: Performed By: #### C MP, LIPID, URIC #### [facility] [address] [place] [address] Dr. Pearl Young Nitrite Ql (U) Negative Normal NEGATIVE [facility] Comment on above: Performed By: #### C MP, LIPID, URIC #### [facility] [address] [place] [address] Dr. Pearl Young pH (U) 6.0 [pH] Normal 5-9 [facility] Comment on above: Performed By: #### C MP, LIPID, URIC #### [facility] [address] [place] [address] Dr. Pearl Young RBC NONE SEEN Abnormal 0-2 [facility] Comment on above: Performed By: #### C MP, LIPID, URIC #### [facility] [address] [place] [address] Dr. Pearl Young SPEC GRAVITY 1.020 Normal 1.005-<=1.025 [facility] Comment on above: Performed By: #### C MP, LIPID, URIC #### [facility] [address] [place] [address] Dr. Pearl Young UA PROTEIN Negative Normal NEGATIVE/ TRACE [facility] Comment on above: Performed By: #### C MP, LIPID, URIC #### [facility] [address] [place] [address] Dr. Pearl Young Urobilinogen Qn (U) 0.2 {Jenny'U}/dL Normal 0.2 - 1. 0 [facility] Comment on above: Performed By: #### C MP, LIPID, URIC #### [facility] [address] [place] [address] Dr. Pearl Young WBC NONE SEEN Normal NONE SEEN [facility] Comment on above: Performed By: #### C MP, LIPID, URIC #### [facility] [address] [place] [address] Dr. Pearl Young URIC ACID SERUMon 01-10-2022 Urate [Mass/Vol] 6.1 mg/dL Critically high 2.6-6.0 [facility] Comment on above: Performed By: #### C MP, LIPID, URIC #### [facility] [address] [place] [address] Dr. Pearl Young CULTURE URINEon 07-09-2021 CULTURE [...] Trimethoprim/Sulfame thoxazole <=20 S F Normal [facility] Comment on above: Performed By: #### C MP, LIPID, URIC #### [facility] [address] [place] [address] Dr. Pearl Young CBC AUTO DIFFon 07-07-2021 BASO # 0.1 103/ul Normal 0.0-0.1 [facility] Comment on above: Performed By: #### C MP, LIPID, URIC #### [facility] [address] [address] [address] Pearl Young Basophils/100 WBC (Bld) 0.6 % Normal 0.2-2.0 [facility] Comment on above: Performed By: #### C MP, LIPID, URIC #### [facility] [address] [place] [address] Dr. Pearl Young EO # 0.2 103/ul Normal 0.0-0.7 [facility] Comment on above: Performed By: #### C MP, LIPID, URIC #### [facility] [address] [address] [address] Pearl Young Eosinophils/100 WBC (Bld) 1.2 % Normal 0.9-7.0 [facility] Comment on above: Performed By: #### C MP, LIPID, URIC #### [facility] [address] [place] [address] Dr. Pearl Young Erythrocyte distribution width (RBC) [Ratio] 17.6 % Critically high 11.0-15.0 [facility] Comment on above: Performed By: #### C MP, LIPID, URIC #### [facility] [address] [place] [address] Dr. Pearl Young Hematocrit (Bld) [Volume fraction] 49.4 % Critically high 36.0-48.0 [facility] Comment on above: Performed By: #### C MP, LIPID, URIC #### [facility] [address] [place] [address] Dr. Pearl Young Hemoglobin (Bld) [Mass/Vol] 15.6 g/dL Normal 12.0-16.0 [facility] Comment on above: Performed By: #### C MP, LIPID, URIC #### [facility] [address] [place] [address] Dr. Pearl Young IG # 0.10 10e3/ul Critically high 0.00-0.03 [facility] Comment on above: Performed By: #### C MP, LIPID, URIC #### [facility] [address] [place] [address] Dr. Pearl Young IG % 0.8 % Critically high 0.0-0.5 [facility] Comment on above: Performed By: #### C MP, LIPID, URIC #### [facility] [address] [place] [address] Dr. Pearl Young LYMPH # 2.1 103/ul Normal 1.2-3.8 [facility] Comment on above: Performed By: #### C MP, LIPID, URIC #### [facility] [address] [place] [address] Dr. Pearl Young Lymphocytes/100 WBC (Bld) 16.7 % Critically low 20.5-60.0 [facility] Comment on above: Performed By: #### C MP, LIPID, URIC #### [facility] [address] [place] [address] Dr. Pearl Young MANUAL DIFF REQ NO Normal [facility] Comment on above: Performed By: #### C MP, LIPID, URIC #### [facility] [address] [place] [address] Dr. Pearl Young MCH (RBC) [Entitic mass] 28.4 pg Normal 26.7-34.0 [facility] Comment on above: Performed By: #### C MP, LIPID, URIC #### [facility] [address] [place] [address] Dr. Pearl Young MCHC (RBC) [Mass/Vol] 31.6 g/dL Normal 29.9-35.2 [facility] Comment on above: Performed By: #### C MP, LIPID, URIC #### [facility] [address] [place] [address] Dr. Pearl Young MCV (RBC) [Entitic vol] 89.8 fL Normal 81.0-99.0 [facility] Comment on above: Performed By: #### C MP, LIPID, URIC #### [facility] [address] [place] [address] Dr. Pearl Young MONO # 0.8 103/ul Normal 0.3-0.8 [facility] Comment on above: Performed By: #### C MP, LIPID, URIC #### [facility] [address] [place] [address] Dr. Pearl Young Monocytes/100 WBC (Bld) 6.7 % Normal 1.7-12.0 [facility] Comment on above: Performed By: #### C MP, LIPID, URIC #### [facility] [address] [place] [address] Dr. Pearl Young NEUT # 9.2 103/ul Critically high 1.4-6.5 [facility] Comment on above: Performed By: #### C MP, LIPID, URIC #### [facility] [address] [place] [address] Dr. Pearl Young Neutrophils/100 WBC (Bld) 74.0 % Normal 43.0-75.0 [facility] Comment on above: Performed By: #### C MP, LIPID, URIC #### [facility] [address] [place] [address] Dr. Pearl Young Platelet mean volume (Bld) [Entitic vol] 10.6 fL Normal 9.5-13.5 [facility] Comment on above: Performed By: #### C MP, LIPID, URIC #### [facility] [address] [address] [address] Pearl Young PLT 265 103/ul Normal 150-450 [facility] Comment on above: Performed By: #### C MP, LIPID, URIC #### [facility] [address] [address] [address] Pearl Young RBC 5.50 106/ul Critically high 4.20-5.40 [facility] Comment on above: Performed By: #### C MP, LIPID, URIC #### [facility] [address] [address] [address] Pearl Young WBC 12.4 103/ul Critically high 4.0-11.0 [facility] Comment on above: Performed By: #### C MP, LIPID, URIC #### [facility] [address] [place] [address] Dr. Pearl Young FERRITINon 07-07-2021 Ferritin [Mass/Vol] 41.0 ng/mL Normal 6.2-137.0 [facility] Comment on above: Performed By: #### F ERR, IRON #### [facility] [address] [address] [address] Pearl Young GLYCOHEMOGLOBIN A1Con 2021 ADA RECOMMENDATION ADA THERAPEUTIC TARGET 6.0 - 7.0 ACTION SUGGESTED > 7.0 Normal [facility] Comment on above: Performed By: #### C MP, LIPID, URIC #### [facility] [address] [address] [address] Pearl Young Glucose [Mass/Vol] 143 mg/dL Normal [facility] Comment on above: Performed By: #### C MP, LIPID, URIC #### [facility] [address] [address] [address] Pearl Young HbA1c (Bld) [Mass fraction] 6.6 % Critically high <=6.0 [facility] Comment on above: Performed By: #### C MP, LIPID, URIC #### [facility] [address] [place] [address] Dr. Pearl Young IRONon 07-07-2021 Iron [Mass/Vol] 166.0 ug/dL Normal 37.0-170.0 [facility] Comment on above: Performed By: #### F ERR, IRON #### [facility] [address] [address] [address] Pearl Young PROF CHEM 8 (BAS METB)on Anion gap [Moles/Vol] 9.6 mmol/L Normal [facility] Comment on above: Performed By: #### B MP #### [facility] [address] [address] [address] Pearl Young Calcium [Mass/Vol] 9.5 mg/dL Normal 8.4-10.2 [facility] Comment on above: Performed By: #### B MP #### [facility] [address] [place] [address] Dr. Pearl Young Chloride [Moles/Vol] 102 mmol/L Normal 98-107 [facility] Comment on above: Performed By: #### B MP #### [facility] [address] [address] [address] Pearl Young CO2 [Moles/Vol] 31.2 mmol/L Critically high 22.0-30.0 [facility] Comment on above: Performed By: #### B MP #### [facility] [address] [place] [address] Dr. Pearl Young Creatinine [Mass/Vol] 0.78 mg/dL Normal 0.52-1.04 [facility] Comment on above: Performed By: #### B MP #### [facility] [address] [place] [address] Dr. Pearl Young EGFR-AF ECUADOREAN >60 Normal >=60 [facility] Comment on above: Performed By: #### B MP #### [facility] [address] [address] [address] Pearl Young EGFR-NON AF ECUADOREAN >60 Normal >=60 [facility] Comment on above: Performed By: #### B MP #### [facility] [address] [place] [address] Dr. Pearl Young Glucose [Mass/Vol] 99 mg/dL Normal 74-106 [facility] Comment on above: Performed By: #### B MP #### [facility] [address] [address] [address] Paerl Young Potassium [Moles/Vol] 3.8 mmol/L Normal 3.4-5.0 [facility] Comment on above: Performed By: #### B MP #### [facility] [address] [address] [address] Pearl Young Sodium [Moles/Vol] 139 mmol/L Normal 137-145 [facility] Comment on above: Performed By: #### B MP #### [facility] [address] [address] [address] Pearl Young Urea nitrogen [Mass/Vol] 12.0 mg/dL Normal 7.0-17.0 [facility] Comment on above: Performed By: #### B MP #### [facility] [address] [address] [address] Pearl Young Urea nitrogen/Creatinine [Mass ratio] 15.4 mg/mg Normal [facility] Comment on above: Performed By: #### B MP #### [facility] [id number] Pearl Young Encounters Encounter Date Encounter Type Care Provider Facility Start: 12-20-2023 End: 12-20-2023 ambulatory ELIVA AICHHOLZ Not Available Start: 09-13-2023 End: 09-13-2023 ambulatory ELVIA AICHHOLZ Not Available Start: 07-26-2023 Refill Elvia Aichholz [employer]TER [employer] OPERATOR Work Phone: [facility] Comment on above: Major depressive dis order, recurrent episode, moderate (HCC) (CMS/HCC) (Primary Dx) Start: 06-12-2023 End: 06-12-2023 ambulatory ELVIA AICHHOLZ Not Available Start: 04-11-2022 End: 04-11-2022 ambulatory FRONT END ENGINEER ELVIA AICHHOLZ Facility:[facility] Start: 03-28-2022 End: 03-29-2022 ambulatory FRONT END ENGINEER ELVIA AICHHOLZ Facility:[facility] Start: 01-10-2022 End: 01-11-2022 ambulatory FRONT END ENGINEER ELVIA MAYOALEXSANDRA Facility:[facility] Start: 07-07-2021 End: 07-08-2021 ambulatory FRONT END ENGINEER ELVIA MAYOALEXSANDRA Facility:[facility] Procedures Date Procedure Procedure Detail Performing Clinician Start: 06-12-2023 Mammography Elvia brand [employer]AT OPERATOR Work Phone: Start: 06-12-2023 Microscopic observat ion [Identifier] in Cervix by Cyto stain Elvia Hall [employer]TER BOAT OPERATOR Work Phone: Plan of Treatment Date Care Activity Detail Author Start: 06-12-2026 Screening for malign ant neoplasm of cervix [facility] Start: 04-05-2025 Glaucoma screening Diabetes: R etinopathy Screening [facility] Start: 06-12-2024 Screening for malign ant neoplasm of breast Mammogram [facility] Start: 03-10-2024 Urine screening for protein Diabetes: Urine Protein Screening [facility] Start: 12-09-2023 Influenza vaccination Influenza Vacc ine (#1) [facility] Comment on above: Postponed from 02/09 (Patient Refused) Start: 09-13-2023 End: 09-13-2023 Patient encounter procedure 09/13/2023 4:30 PM EDT Office Visit [facility] [address] [place] [id number] Elvia Hall NP [address] [place] [id number] [facility] Start: 06-09-2023 Hemoglobin A1c measurement Diabetes: Hemoglobin A1C [facility] Start: 2002 Screening for malign ant neoplasm of cervix HPV/Cotest [facility] Start: 1972 Medicare Annual Well ness (AWV) Medicare Annual Wellness (AWV) [facility] Start: 1972 Screening for malign ant neoplasm of colon [facility] Payers Date Payer Category Payer Medicaid [facility] [place] [id number] 2022-Present [phone] [address] [place] [address] Medicaid [id number] 2020 Medicare [employer] MEDICARE ADVANTAGE [facility] MEDICARE ADVANTAGE [id number] 2020-Present [address] [place] [address] [id number] 1972 Unknown [id number] 1972 Unknown [id number] 1972 Unknown [id number] 1972 Unknown [id number] 1972 Unknown [id number] 1972 Unknown [id number] 1972 Unknown [id number] 1959 Medicaid [id number] 1959 Unknown [id number] Social History Date Type Detail Facility Start: 06-10-2023 Tobacco smoking status ORIS Ex-smoke r [facility] End: 06-11-2013 History [...] Healthcare How often do you att end restorationism or mandaen services? Patient declined [facility] Are you [...] DATE CREATED AUTHOR AUTHOR'S ORGANIZ ATION 12/26/2023 [facility] Care Teams (unrecognized sec tion and content) Pull Out Operator Relationship Specialty Start Date End Date Ritesh Cain MD [address] [place] [address] PCP - General Family Medicine 01/15/23 Elvia Hall NP [address] [place] [address] Nurse Practitioner Family Medicine 01/15/23 [...] BE BASED ON THE PRIMARY CLINICAL RECORDS. [facility]. provides no warranty or guarantee of the accuracy or completeness of information in this document.
[2024-03-13 14:01] LABS: Bilirubin Urine NEGATIVE (NEGATIVE); Blood Urine NEGATIVE (NEGATIVE); Clarity Urine CLEAR (CLEAR); Color Urine LT. YELLOW (YELLOW); Glucose Urine UA >=1000 mg/dL (NEGATIVE); Ketones Urine NEGATIVE (NEGATIVE); Leukocyte Esterase Urine NEGATIVE (NEGATIVE); Nitrite Urine NEGATIVE (NEGATIVE); Protein Urine NEGATIVE (NEG/TRACE); Urobilinogen Urine 0.2 EU/dL (0.2-1.0)
[2024-03-13 14:04] LABS: Urine Microscopic Indicated NO
== END 2024-03-13 12:39 | disposition home or self-care (01) ==
LOC: LAB 12:38
PROVIDERS: PCP Nurse Practitioner; Visit Provider Nurse Practitioner
DX: R39.9 Unspecified symptoms and signs involving the genitourinary system (principal)
CPT/HCPCS: 81003; 87086; 87150; 87186

== ENCOUNTER 2024-04-07 12:48 | Outpatient (OUT) | payer MEDICARE, MEDICAID, SELFPAY ==
--- OUTSIDE RECORDS SUMMARY | 2024-04-07 12:56 | XMS_ITS | CCD ---
Author Organization [facility] Care Team Providers Care Assistant Basketball Coach Name Role Phone AICHHOLZ, TEST FIXTURE ASSEMBLER ELVIA Attending Unavailable AICHHOLZ, TEST FIXTURE ASSEMBLER ELVIA Consulting Unavailable AICHHOLZ, TEST FIXTURE ASSEMBLER ELVIA Primary Care Unavailable AICHHOLZ, TEST FIXTURE ASSEMBLER ELVIA Admitting Unavailable AICHHOLZ, TEST FIXTURE ASSEMBLER ELVIA Consulting Unavailable AICHHOLZ, TEST FIXTURE ASSEMBLER ELVIA Primary Care Unavailable AICHHOLZ, TEST FIXTURE ASSEMBLER ELVIA Admitting Unavailable AICHHOLZ, TEST FIXTURE ASSEMBLER ELVIA Attending Unavailable AICHHOLZ, TEST FIXTURE ASSEMBLER ELVIA Consulting Unavailable AICHHOLZ, TEST FIXTURE ASSEMBLER ELVIA Primary Care Unavailable AICHHOLZ, TEST FIXTURE ASSEMBLER ELVIA Admitting Unavailable AICHHOLZ, TEST FIXTURE ASSEMBLER ELVIA Attending Unavailable AICHHOLZ, TEST FIXTURE ASSEMBLER ELVIA Consulting Unavailable AICHHOLZ, TEST FIXTURE ASSEMBLER ELVIA Primary Care Unavailable AICHHOLZ, TEST FIXTURE ASSEMBLER ELVIA Admitting Unavailable AICHHOLZ, TEST FIXTURE ASSEMBLER ELVIA Attending Unavailable Aichholz FOREST MANAGEMENT TEACHER, Elvia Unavailable Ant MCCLURE, Ritesh Primary Care Provider [phone] Aichholz FOREST MANAGEMENT TEACHER, Elvia Unavailable Ritesh Cain MD Primary Care Provider Aichholz FOREST MANAGEMENT TEACHER, Elvia Unavailable AICHHOLZ, ELVIA Attending Unavailable AICHHOLZ, ELVIA Attending Unavailable AICHHOLZ, ELVIA Attending Unavailable AICHHOLZ, ELVIA Attending Unavailable Aichholz FOREST MANAGEMENT TEACHER, Elvia Unavailable Allergies Allergy Classification Reported Allergen(s) Allergy Type Date of Onset Reaction(s) Facility (1 source) Codeine Drug Allergy [facility] (1 source) meloxicam Drug Allergy [facility] (6 sources) Codeine Drug Allergy 02-28-2023 [facility] (6 sources) meloxicam Drug Allergy 02-28-2023 [facility] Medications Current Medications Medication Drug Class(es) Dates Sig (Normalized) Sig (Original) allopurinol 100 mg oral tablet (8 sources) Xanthine Oxidase Inhibitor Start: 12-20-2023 End: 06-18-2024 take 1 tablet by mouth in the morning allopurinol (Zyloprim) 100 MG tablet Indications: Gout, unspecified cause, unspecified chronicity, unspecified site Take 1 tablet (100 mg) by mouth in the morning. 90 tablet 1 03/20/2024 06/18/2024 Active Start: 06-28-2023 End: 09-26-2023 take 1 tablet by mouth in the morning allopurinol (Zyloprim) 100 MG tablet Indications: Gout, unspecified cause, unspecified chronicity, unspecified site Take 1 tablet (100 mg) by mouth in the morning. 90 tablet 1 06/28/2023 09/26/2023 Active amoxicillin 875 mg / clavulanate 125 mg oral tablet (4 sources) Penicillin-class Antibacterial Start: 03-10-2024 End: 03-20-2024 take 1 tablet by mouth in the morning amoxicillin-clavulanate (Augmentin) 875-125 MG tablet Indications: Urinary tract infection symptoms Take 1 tablet (875 mg) by mouth in the morning and 1 tablet (875 mg) before bedtime. Do all this for 10 days. Take with food. 20 tablet 03/10/2024 03/20/2024 Discontinued (Therapy completed) atenolol 50 mg oral tablet (8 sources) beta-Adrenergic Rupesh Start: 12-20-2023 End: 06-18-2024 take 1 tablet by mouth once daily atenolol (Tenormin) 50 MG tablet Indications: Essential hypertension, benign (CMS/HCC) Take 1 tablet (50 mg) by mouth Daily 90 tablet 1 03/20/2024 06/18/2024 Active take 1 tablet by mouth in the mo rning atenolol (Tenormin) 50 MG tablet Take 50 mg by mouth in the morning. 0 Active atorvastatin 40 mg oral tablet (8 sources) HMG-CoA Reductase Inhibitor Start: 12-20-2023 End: 06-18-2024 take 1 tablet by mouth in the evening atorvastatin (Lipitor) 40 MG tablet Indications: Mixed hyperlipidemia (CMS/HCC) Take 1 tablet (40 mg) by mouth in the evening 90 tablet 1 03/20/2024 06/18/2024 Active Start: 07-16-2023 End: 10-14-2023 take 1 tablet by mouth in the morning atorvastatin (Lipitor) 40 MG tablet Indications: Mixed hyperlipidemia (CMS/HCC) Take 1 tablet (40 mg) by mouth in the morning. 90 tablet 1 07/16/2023 10/14/2023 Active Blood Glucose Monitoring Sup pl w/Device kit (6 sources) Blood Glucose Mo nitoring Suppl w/Device kit Active Blood Glucose Mo nitoring Suppl w/Device kit cetirizine hydrochloride 10 mg oral tablet (8 sources) Histamine-1 Receptor Antagonist Start: 12-20-2023 End: 06-18-2024 take 1 tablet by mouth once daily cetirizine (ZyrTEC) 10 MG tablet Indications: Environmental and seasonal allergies Take 1 tablet (10 mg) by mouth Daily 90 tablet 1 03/20/2024 06/18/2024 Active cetirizine (ZyrT EC) 10 MG tablet Take by mouth. 0 Active cholecalciferol 0.125 mg oral capsule (1 source) Vitamin D take 1 capsule by mouth in the morning cholecalciferol (Vitamin D-3) 125 MCG (5000 UT) capsule Take 5,000 Units by mouth in the morning. 0 Active Continuous Blood Gluc Materials Management Manager (FreeStyle [place]) device (6 sources) End: 03-20-2024 Continuous Blood Gluc Materials Management Manager (FreeStyle [place]) device 03/20/2024 Discontinued (Reorder) Continuous Blood Gluc Materials Management Manager (FreeStyle [place]) device Active Continuous Blood Gluc Materials Management Manager (FreeStyle [place]) device Continuous Blood Gluc Sensor (FreeStyle Katherine 2 Sensor) misc (1 source) Continuous Blood Gluc Sensor (FreeStyle Katherine 2 Sensor) misc Continuous Glucose Materials Management Manager (FreeStyle [place]) device (2 sources) Start: 03-20-2024 End: 03-20-2025 Continuous Glucose Materials Management Manager (FreeStyle [place]) device Indications: Type 2 diabetes mellitus without complication, without long-term current use of insulin (CMS/HCC) 1 each Daily 1 each 03/20/2024 03/20/2025 Active Continuous Glucose Sensor (FreeStyle Katherine 2 Sensor) misc (7 sources) Start: 03-20-2024 End: 04-19-2024 Continuous Glucose Sensor (FreeStyle [place] 2 Sensor[place] [facility] [place]: Type 2 diabetes mellitus without complication, without long-term current use of insulin (CMS/HCC) 1 each by Other route Daily 3 each 03/20/2024 04/19/2024 Active Start: 12-21-2023 End: 03-20-2024 Continuous Glucose Sensor (F reeStyle Katherine 2 Sensor) [facility] [place]ications: Type 2 diabetes mellitus without complication, without long-term current use of insulin (CMS/HCC) 1 each by Other route in the morning and 1 each before bedtime. 3 each 12/21/2023 03/20/2024 Discontinued (Reorder) Start: 12-21-2023 Continuous Glu cose Sensor (FreeStyle Katherine 2 Sensor) [facility] [place]ications: Type 2 diabetes mellitus without complication, without long-term current use of insulin (CMS/HCC) 1 each by Other route in the morning and 1 each before bedtime. 3 each 12/21/2023 Active empagliflozin 25 mg oral tablet (8 sources) Sodium-Glucose Cotransporter 2 Inhibitor Start: 12-20-2023 End: 06-18-2024 take 1 tablet by mouth once daily empagliflozin (Jardiance) 25 MG Indications: Type 2 diabetes mellitus without complication, without long-term current use of insulin (CMS/HCC) Take 1 tablet (25 mg) by mouth Daily 90 tablet 1 03/20/2024 06/18/2024 Active empagliflozin (J ardiance) 25 MG Take by mouth. 0 Active ergocalciferol 1.25 mg oral capsule (7 sources) Provitamin D2 Compound Start: 02-19-2024 End: 06-12-2024 take 1 capsule by mouth every week, then take 1 capsule by mouth every week ergocalciferol (Vitamin D2) 1.25 MG (78905 UT) capsule Indications: Vitamin deficiency Take 1 capsule (1.25 mg) by mouth 1 (one) time per week Take 1 capsule by mouth 1 (one) time per week 12 capsule 1 03/20/2024 06/12/2024 Active ferrous sulfate 325 mg delayed release oral tablet (8 sources) Start: 12-20-2023 End: 06-18-2024 take 1 tablet by mouth at mealtime ferrous sulfate 325 (65 Fe) MG EC tablet Indications: Vitamin deficiency Take 1 tablet (325 mg) by mouth in the morning. Take with meals. 90 tablet 1 03/20/2024 06/18/2024 Active ferrous sulfate 325 (65 Fe) MG EC tablet Take 325 mg by mouth in the morning and 325 mg at noon and 325 mg in the evening. Take with meals. Do not crush, chew, or split. . 0 Active fluconazole 150 mg oral tablet (1 source) Azole Antifungal Start: 06-12-2023 fluconazole (Diflucan) 150 MG tablet Indications: Antibiotic-induced yeast infection 1 time dose, may repeat in 3 days if needed for yeast infection caused by atb 1 tablet 0 06/12/2023 Active glipiZIDE 5 mg oral tablet (8 sources) Sulfonylurea Start: 12-20-2023 End: 06-18-2024 take 0.5 tablet by mouth once daily glipiZIDE (Glucotrol) 5 MG tablet Indications: Type 2 diabetes mellitus without complication, without long-term current use of insulin (CMS/HCC) Take 0.5 tablets (2.5 mg) by mouth Daily 45 tablet 1 03/20/2024 06/18/2024 Active Start: 06-12-2023 take 1 tablet by jamarcus th in the morning glipiZIDE (Glucotrol) 5 MG tablet Indications: Type 2 diabetes mellitus without complication, without long-term current use of insulin (CMS/HCC) Take 1 tablet (5 mg) by mouth in the morning. 30 tablet 5 06/12/2023 Active hydroCHLOROthiazide 25 mg oral tablet (8 sources) Thiazide Diuretic Start: 12-20-2023 End: 06-18-2024 take 1 tablet by mouth once daily hydroCHLOROthiazide (HYDRODiuril) 25 MG tablet Indications: Essential hypertension, benign (CMS/HCC) Take 1 tablet (25 mg) by mouth Daily 90 tablet 1 03/20/2024 06/18/2024 Active take 1 tablet by jamarcus th in the morning hydroCHLOROthiazide (HYDRODiuril) 25 MG tablet Take 25 mg by mouth in the morning. 0 Active lisinopril 40 mg oral tablet (8 sources) Angiotensin Converting Enzyme Inhibitor Start: 12-20-2023 End: 06-18-2024 take 1 tablet by mouth once daily lisinopril 40 MG tablet Indications: Essential hypertension, benign (CMS/HCC) Take 1 tablet (40 mg) by mouth Daily 90 tablet 1 03/20/2024 06/18/2024 Active take 1 tablet by mouth in the mo rning lisinopril 40 MG tablet Take 40 mg by mouth in the morning. 0 Active nystatin 613852 unt/ml topical cream (1 source) Polyene Antifungal nystatin (Mycostatin ) cream Apply topically 3 (three) times a day. 0 Active pantoprazole 40 mg delayed release oral tablet (8 sources) Proton Pump Inhibitor Start: 2023 End: 2024 take 1 tablet by mouth every twenty-four hours as needed for gastroesophageal reflux disease and gastroesophageal reflux disease pantoprazole (ProtoNix) 40 MG EC tablet Indications: Gastroesophageal reflux disease, unspecified whether esophagitis present Take 1 tablet (40 mg) by mouth Daily as needed (acid refllux) 90 tablet 1 03/20/2024 06/18/2024 Active take 1 tablet by mouth before me altime pantoprazole (ProtoNix) 40 MG EC tablet Take 40 mg by mouth in the morning. Take before meals. Do not crush, chew, or split. . 0 Active polyethylene glycol 3350 170 00 mg powder for oral solution (6 sources) Osmotic Laxative polyethylene gl ycol, PEG, 3350 (Miralax) 17 g packet Take by mouth. Active polyethylene gly col, PEG, 3350 (Miralax) 17 g packet Take by mouth. 0 Active semaglutide 3 mg oral tablet (2 sources) take 1 tablet by jamarcus th before mealtime semaglutide (Rybelsus) 3 MG tablet Take 3 mg by mouth in the morning. Take before meals. 0 Active take 1 tablet by mouth before me altime semaglutide (Rybelsus) 7 MG tablet Take 7 mg by mouth in the morning. Take before meals. 0 Active sulfamethoxazole 800 mg / trimethoprim 160 mg oral tablet (4 sources) Dihydrofolate Reductase Inhibitor Antibacterial, Sulfonamide Antimicrobial Start: 03-16-2024 End: 03-23-2024 take 1 tablet by mouth once sulfamethoxazole-trimethoprim (Bactrim DS) 800-160 MG per tablet Indications: Urinary tract infection symptoms Take 1 tablet by mouth every 12 (twelve) hours for 7 days 14 tablet 03/16/2024 03/23/2024 Active venlafaxine 75 mg oral tablet (8 sources) Serotonin and Norepinephrine Reuptake Inhibitor Start: 12-20-2023 End: 06-18-2024 take 2 tablets by mouth in the morning venlafaxine (Effexor) 75 MG tablet Indications: Major Depressive Disorder Take 2 tablets (150 mg) by mouth in the morning and 2 tablets (150 mg) before bedtime. 360 tablet 1 03/20/2024 06/18/2024 Active take 1 tablet by mouth in the mo rning venlafaxine (Effexor) 75 MG tablet Take 75 mg by mouth in the morning and 75 mg before bedtime. 0 Active Problems Active Problems Problem Classification Problem Date Documented Date Episodic/Chronic Diabetes mellitus with complications (5 sources) Type 2 diabetes mellitus with other specified complication; Translations: [TYPE 2 DM W/OTHER SPEC COMPLICATION] Onset: 07-11-2021 Chronic Diabetes mellitus without complication (8 sources) Type 2 diabetes mellitus without complication; Translations: [Type 2 diabetes mellitus without complications] Onset: 06-12-2023 06-12-2023 Chronic Disorders of lipid metabolism (9 sources) Hyperlipidemia, unspecified; Translations: [Mixed hyperlipidemia] Onset: 03-30-2022 06-12-2023 Chronic Esophageal disorders (8 sources) Gastroesophageal reflux disease; Translations: [Gastro-esophageal reflux disease without esophagitis] Onset: 06-12-2023 06-12-2023 Chronic Essential hypertension (8 sources) Benign essential hypertension; Translations: [Essential (primary) hypertension] Onset: 06-12-2023 06-12-2023 Chronic Genitourinary symptoms and ill-defined conditions (13 sources) Dysuria; Translations: [Unspecified symptoms and signs involving the genitourinary system] Onset: 07-11-2021 Episodic Gout and other crystal arthropathies (12 sources) Gout, unspecified; Translations: [Gout] Onset: 03-28-2022 Chronic Mood disorders (9 sources) Recurrent major depressive episodes, moderate ; Translations: [Major depressive disorder, recurrent, moderate] Onset: 05-18-2017 07-26-2023 Chronic Nutritional deficiencies (7 sources) Vitamin deficiency; Translations: [Vitamin deficiency, unspecified] Onset: 12-20-2023 12-20-2023 Episodic Other non-traumatic joint disorders (1 source) Pain in unspecified joint; Translations: [PAIN IN UNSPECIFIED JOINT] Onset: 01-14-2022 Episodic Other nutritional; endocrine; and metabolic disorders (8 sources) Morbid obesity; Translations: [Morbid (severe) obesity due to excess calories] Onset: 06-12-2023 06-12-2023 Chronic Other upper respiratory disease (7 sources) Allergic disposition; Translations: [Other allergic rhinitis] Onset: 12-20-2023 12-20-2023 Chronic Urinary tract infections (5 sources) Acute cystitis; Translations: [Acute cystitis without hematuria] Onset: 01-07-2024 01-07-2024 Episodic Past or Other Problems Problem Classification Problem Date Documented Da te Episodic/Chronic Deficiency and other anemia (4 sources) Iron deficiency anemia, unspecified; Translations: [IRON DEFICIENCY ANEMIA UNSPECIFIED] Onset: 07-07-2021 Episodic Disorders of teeth and jaw (6 sources) Dental abscess; Translations: [Periapical abscess without sinus] Onset: 06-12-2023 Resolved: 12-20-2023 06-12-2023 Episodic Mood disorders (5 sources) Mood disorders Onset: 09-13-2023 09-13-2023 Mycoses (11 sources) Opportunistic mycosis; Translations: [Candidiasis, unspecified] Onset: 06-12-2023 06-12-2023 Episodic Other gastrointestinal disorders (6 sources) Constipation; Translations: [Constipation, unspecified] Onset: 06-12-2023 06-12-2023 Episodic Other screening for suspected conditions (not mental disorders or infectious disease) (18 sources) Patient encounter status; Translations: [Encounter for screening for malignant neoplasm of colon] Onset: 06-12-2023 Resolved: 06-12-2023 06-12-2023 Episodic Results Test Name Value Interpretation Reference Range Facility [facility] UA (CLEAN/CATCH) MICROSC OPIC IF INDICATEon 03-13-2024 BILIRUBIN URINE Negative NEGATIVE [facility] BLOOD URINE Negative NEGATIVE [facility] Clarity (U) CLEAR CLEAR [facility] Color (U) LT. YELLOW YELLOW [facility] GLUCOSE URINE UA >=1000 Abnormal NEGATIVE mg/dL [facility] Interpretation and review of laboratory results Abnormal [facility] Ketones Ql (U) Negative NEGATIVE mg/dL [facility] Leukocyte esterase Test strip Ql (U) Negative NEGATIVE [facility] NITRITE URINE Negative NEGATIVE [facility] Health care pH (U) 6.0 [pH] 5.0 - 9.0 [facility] PROTEIN URINE Negative NEG/TRACE mg/dL [facility] SPECIFIC GRAVITY URINE 1.020 1.005 - 1.025 [facility] URINE MICROSCOPIC INDICATED NO [facility] UROBILINOGEN URINE 0.2 EU/dL 0.2 - 1.0 EU/dL [facility] CULTURE URINEon 04-11-2022 CULTURE URINE Culture Observations: LIGHT GROWTH OF MIXED GENITAL SYL. NO POTENTIAL PATHOGENS SEEN. Normal [facility] Comment on above: Performed By: #### C MP, LIPID, URIC #### [facility] [address] [address] [address] Pearl Young LIPID PROFILEon 03-28-2022 CHOL-HDL RATIO NORM SEE BELOW Normal [facility] Comment on above: Result Comment: 3.3 - 4.4 LOW RISK 4.4 - 7.1 AVERAGE RISK 7.1 - 11.0 MODERATE RISK >11.0 HIGH RISK Performed By: #### C MP, LIPID, URIC #### [facility] [address] [address] [address] Pearl Young Cholesterol [Mass/Vol] 164 mg/dL Normal <=200 [facility] Comment on above: Performed By: #### C MP, LIPID, URIC #### [facility] [address] [address] [address] Pearl Young Cholesterol in HDL [Mass/Vol] 43 mg/dL Normal 40-60 [facility] Comment on above: Performed By: #### C MP, LIPID, URIC #### [facility] [address] [address] [address] Pearl Young Cholesterol in LDL [Mass/Vol] 93.8 mg/dL Normal [facility] Comment on above: Performed By: #### C MP, LIPID, URIC #### [facility] [address] [address] [address] Pearl Young Cholesterol.total/Cho lesterol in HDL [Mass ratio] 3.8 {ratio} Normal [facility] Comment on above: Performed By: #### C MP, LIPID, URIC #### [facility] [address] [address] [address] Pearl Young HDL NORMAL > or = 60 mg/dl - LOW CARDIOVASCULAR RISK <40 mg/dl - HIGH CARDIOVASCULAR RISK Normal [facility] Comment on above: Performed By: #### C MP, LIPID, URIC #### [facility] [address] [address] [address] Pearl Young LDL CALC NORMAL SEE BELOW Normal [facility] Comment on above: Result Comment: <100 mg/dl OPTIMAL 100 - 129 mg/dl NEAR OR ABOVE OPTIMAL 130 - 159 mg/dl BORDERLINE HIGH 160 - 189 mg/dl HIGH >190 mg/dl VERY HIGH Performed By: #### C MP, LIPID, URIC #### [facility] [address] [place] [address] Dr. Pearl Young Triglyceride [Mass/Vol] 136 mg/dL Normal <=150 [facility] Comment on above: Performed By: #### C MP, LIPID, URIC #### [facility] [address] [place] [address] Dr. Paerl Young VLDL CALC 27.2 mg/dL Normal [facility] Comment on above: Performed By: #### C MP, LIPID, URIC #### [facility] [address] [place] [address] Dr. Pearl Young PROF 14(COMP METB)on 03-28- 022 Albumin [Mass/Vol] 3.5 g/dL Normal 3.4-5.0 [facility] Comment on above: Performed By: #### C MP, LIPID, URIC #### [facility] [address] [place] [address] Dr. Pearl Young Albumin/Globulin [Mass ratio] 0.8 {ratio} Normal [facility] Comment on above: Performed By: #### C MP, LIPID, URIC #### [facility] [address] [place] [address] Dr. Pearl Young ALP [Catalytic activity/Vol] 117 U/L Critically high 46-116 [facility] Comment on above: Performed By: #### C MP, LIPID, URIC #### [facility] [address] [address] [address] Pearl Young ALT [Catalytic activity/Vol] 28 U/L Normal 14-59 [facility] Comment on above: Performed By: #### C MP, LIPID, URIC #### [facility] [address] [address] [address] Pearl Young Anion gap [Moles/Vol] 12.6 mmol/L Normal [facility] Comment on above: Performed By: #### C MP, LIPID, URIC #### [facility] [address] [address] [address] Pearl Young AST [Catalytic activity/Vol] 12 U/L Critically low 15-37 [facility] Comment on above: Performed By: #### C MP, LIPID, URIC #### [facility] [address] [address] [address] Pearl Young Bilirubin [Mass/Vol] 0.5 mg/dL Normal 0.2-1.0 [facility] Comment on above: Performed By: #### C MP, LIPID, URIC #### [facility] [address] [address] [address] Pearl Young Calcium [Mass/Vol] 9.2 mg/dL Normal 8.5-10.1 [facility] Comment on above: Performed By: #### C MP, LIPID, URIC #### [facility] [address] [address] [address] Pearl Young Chloride [Moles/Vol] 104 mmol/L Normal 98-107 [facility] Comment on above: Performed By: #### C MP, LIPID, URIC #### [facility] [address] [address] [address] Pearl Young CO2 [Moles/Vol] 28.0 mmol/L Normal 21.0-32.0 [facility] Comment on above: Performed By: #### C MP, LIPID, URIC #### [facility] [address] [address] [address] Pearl Young Creatinine [Mass/Vol] 0.82 mg/dL Normal 0.55-1.02 [facility] Comment on above: Performed By: #### C MP, LIPID, URIC #### [facility] [address] [address] [address] Pearl Young EGFR-AF MEXICAN >60 Normal >=60 [facility] Comment on above: Performed By: #### C MP, LIPID, URIC #### [facility] [address] [address] [address] Pearl Young EGFR-NON AF [place]ICAN >60 Normal >=60 [facility] Comment on above: Performed By: #### C MP, LIPID, URIC #### [facility] [address] [address] [address] Pearl Young Globulin (S) [Mass/Vol] 4.3 g/dL Normal [facility] Comment on above: Performed By: #### C MP, LIPID, URIC #### [facility] [address] [address] [address] Pearl Young Glucose [Mass/Vol] 170 mg/dL Critically high 74-106 [facility] Comment on above: Performed By: #### C MP, LIPID, URIC #### [facility] [address] [address] [address] Pearl Young Potassium [Moles/Vol] 4.6 mmol/L Normal 3.5-5.1 [facility] Comment on above: Performed By: #### C MP, LIPID, URIC #### [facility] [address] [address] [address] Pearl Young Protein [Mass/Vol] 7.8 g/dL Normal 6.4-8.2 [facility] Comment on above: Performed By: #### C MP, LIPID, URIC #### [facility] [address] [address] [address] Pearl Young Sodium [Moles/Vol] 140 mmol/L Normal 136-145 [facility] Comment on above: Performed By: #### C MP, LIPID, URIC #### [facility] [address] [address] [address] Pearl Young Urea nitrogen [Mass/Vol] 14.0 mg/dL Normal 7.0-18.0 [facility] Comment on above: Performed By: #### C MP, LIPID, URIC #### [facility] [address] [address] [address] Pearl Young Urea nitrogen/Creatinine [Mass ratio] 17.1 mg/mg Normal [facility] Comment on above: Performed By: #### C MP, LIPID, URIC #### [facility] [address] [address] [address] Pearl Young SED RATE WESTERGRENon 2021 SED RATE 33 mm/hr Critically high <=20 [facility] Comment on above: Performed By: #### S EDR #### [facility] [address] [place] [address] Dr. Pearl Young URIC ACID SERUMon 03-28-2022 Urate [Mass/Vol] 4.2 mg/dL Normal 2.6-6.0 [facility] Comment on above: Performed By: #### C MP, LIPID, URIC #### [facility] [address] [place] [address] Dr. Pearl Young JUAN JOSE by IFAon 01-12-2022 Antinuclear Antibodies, IFA Negative Normal [facility] Comment on above: Result Comment: Nega tive <1:80 Borderline 1:80 Positive >1:80 ICAP nomenclature: [id number] For more information about Hep-2 cell patterns use ANApatterns.org, the official website for the International Consensus on Antinuclear Antibody (JUAN JOSE) Patterns (ICAP). Performed By: #### A NAIFA #### [facility] [address] [place] [address] Dr. Pearl Young ANTISTREPTOLYSIN O AB (ASO)o n 01-12-2022 Antistreptolysin O Ab 45.6 IU/mL Normal 0.0-200.0 [facility] Comment on above: Performed By: #### C MP, LIPID, URIC #### [facility] [address] [place] [address] Dr. Pearl Young RHEUMATOID FACTORon 01-13-20 RA Latex Turbid. <10.0 Normal <14.0 [facility] Comment on above: Performed By: #### C MP, LIPID, URIC #### [facility] [address] [address] [address] Pearl Young CBC AUTO DIFFon 01-10-2022 BASO # 0.1 103/ul Normal 0.0-0.1 [facility] Comment on above: Performed By: #### C BC #### [facility] [address] [address] [address] Pearl Young Basophils/100 WBC (Bld) 0.6 % Normal 0.2-2.0 [facility] Comment on above: Performed By: #### C BC #### [facility] [address] [address] [address] Pearl Young EO # 0.2 103/ul Normal 0.0-0.7 [facility] Comment on above: Performed By: #### C BC #### [facility] [address] [place] [address] Dr. Pearl Young Eosinophils/100 WBC (Bld) 1.3 % Normal 0.9-7.0 [facility] Comment on above: Performed By: #### C BC #### [facility] [address] [place] [address] Dr. Pearl Young Erythrocyte distribution width (RBC) [Ratio] 14.9 % Normal 11.0-15.0 [facility] Comment on above: Performed By: #### C BC #### [facility] [address] [place] [address] Dr. Pearl Young Hematocrit (Bld) [Volume fraction] 50.2 % Critically high 36.0-48.0 [facility] Comment on above: Performed By: #### C BC #### [facility] [address] [address] [address] eParl Young Hemoglobin (Bld) [Mass/Vol] 15.6 g/dL Normal 12.0-16.0 [facility] Comment on above: Performed By: #### C BC #### [facility] [address] [address] [address] Pearl Young IG # 0.07 10e3/ul Critically high 0.00-0.03 [facility] Comment on above: Performed By: #### C BC #### [facility] [address] [address] [address] Pearl Young IG % 0.6 % Critically high 0.0-0.5 [facility] Comment on above: Performed By: #### C BC #### [facility] [address] [address] [address] Pearl Young LYMPH # 2.3 103/ul Normal 1.2-3.8 [facility] Comment on above: Performed By: #### C BC #### [facility] [address] [place] [address] Dr. Pearl Young Lymphocytes/100 WBC (Bld) 19.2 % Critically low 20.5-60.0 [facility] Comment on above: Performed By: #### C BC #### [facility] [address] [place] [address] Dr. Pearl Young MANUAL DIFF REQ NO Normal [facility] Comment on above: Performed By: #### C BC #### [facility] [address] [place] [address] Dr. Pearl Young MCH (RBC) [Entitic mass] 28.9 pg Normal 26.7-34.0 [facility] Comment on above: Performed By: #### C BC #### [facility] [address] [place] [address] Dr. Pearl Young MCHC (RBC) [Mass/Vol] 31.1 g/dL Normal 29.9-35.2 [facility] Comment on above: Performed By: #### C BC #### [facility] [address] [place] [address] Dr. Pearl Young MCV (RBC) [Entitic vol] 93.0 fL Normal 81.0-99.0 [facility] Comment on above: Performed By: #### C BC #### [facility] [address] [place] [address] Dr. Pearl Young MONO # 0.9 103/ul Critically high 0.3-0.8 [facility] Comment on above: Performed By: #### C BC #### [facility] [address] [address] [address] Pearl Young Monocytes/100 WBC (Bld) 7.4 % Normal 1.7-12.0 [facility] Comment on above: Performed By: #### C BC #### [facility] [address] [address] [address] Pearl Young NEUT # 8.6 103/ul Critically high 1.4-6.5 [facility] Comment on above: Performed By: #### C BC #### [facility] [address] [address] [address] Pearl Young Neutrophils/100 WBC (Bld) 70.9 % Normal 43.0-75.0 [facility] Comment on above: Performed By: #### C BC #### [facility] [address] [place] [address] Dr. Pearl Young Platelet mean volume (Bld) [Entitic vol] 10.7 fL Normal 9.5-13.5 [facility] Comment on above: Performed By: #### C BC #### [facility] [address] [place] [address] Dr. Pearl Young PLT 267 103/ul Normal 150-450 [facility] Comment on above: Performed By: #### C BC #### [facility] [address] [place] [address] Dr. Pearl Young RBC 5.40 106/ul Normal 4.20-5.40 [facility] Comment on above: Performed By: #### C BC #### [facility] [address] [place] [address] Dr. Pearl Young WBC 12.1 103/ul Critically high 4.0-11.0 [facility] Comment on above: Performed By: #### C BC #### [facility] [address] [place] [address] Dr. Pearl Young CRPon 01-10-2022 CRP 1.8 mg/dL Critically high <=1.0 [facility] Comment on above: Performed By: #### C MP, LIPID, URIC #### [facility] [address] [address] [address] Pearl Young GLYCOHEMOGLOBIN A1Con 2021 ADA RECOMMENDATION SEE BELOW Normal [facility] Comment on above: Result Comment: ADA RECOMMENDED LIMIT 4.0 - 6.0 ADA THERAPEUTIC TARGET < 7.0 ACTION SUGGESTED > 7.0 Performed By: #### C MP, LIPID, URIC #### [facility] [address] [address] [address] Pearl Young Glucose [Mass/Vol] 154 mg/dL Normal [facility] Comment on above: Performed By: #### C MP, LIPID, URIC #### [facility] [address] [place] [address] Dr. Pearl Young HbA1c (Bld) [Mass fraction] 7.0 % Critically high 4.5-6.2 [facility] Comment on above: Performed By: #### C MP, LIPID, URIC #### [facility] [address] [place] [address] Dr. Pearl Young LIPID PROFILEon 01-10-2022 CHOL-HDL RATIO NORM SEE BELOW Normal [facility] Comment on above: Result Comment: 3.3 - 4.4 LOW RISK 4.4 - 7.1 AVERAGE RISK 7.1 - 11.0 MODERATE RISK >11.0 HIGH RISK Performed By: #### C MP, LIPID, URIC #### [facility] [address] [place] [address] Dr. Pearl Young Cholesterol [Mass/Vol] 176 mg/dL Normal <=200 [facility] Comment on above: Performed By: #### C MP, LIPID, URIC #### [facility] [address] [place] [address] Dr. Pearl Young Cholesterol in HDL [Mass/Vol] 46 mg/dL Normal 40-60 [facility] Comment on above: Performed By: #### C MP, LIPID, URIC #### [facility] [address] [place] [address] Dr. Pearl Young Cholesterol in LDL [Mass/Vol] 103.2 mg/dL Normal [facility] Comment on above: Performed By: #### C MP, LIPID, URIC #### [facility] [address] [address] [address] Pearl Young Cholesterol.total/Cho lesterol in HDL [Mass ratio] 3.8 {ratio} Normal [facility] Comment on above: Performed By: #### C MP, LIPID, URIC #### [facility] [address] [address] [address] Pearl Young HDL NORMAL > or = 60 mg/dl - LOW CARDIOVASCULAR RISK <40 mg/dl - HIGH CARDIOVASCULAR RISK Normal [facility] Comment on above: Performed By: #### C MP, LIPID, URIC #### [facility] [address] [address] [address] Pearl Young LDL CALC NORMAL SEE BELOW Normal [facility] Comment on above: Result Comment: <100 mg/dl OPTIMAL 100 - 129 mg/dl NEAR OR ABOVE OPTIMAL 130 - 159 mg/dl BORDERLINE HIGH 160 - 189 mg/dl HIGH >190 mg/dl VERY HIGH Performed By: #### C MP, LIPID, URIC #### [facility] [address] [place] [address] Dr. Pearl Young Triglyceride [Mass/Vol] 134 mg/dL Normal <=150 [facility] Comment on above: Performed By: #### C MP, LIPID, URIC #### [facility] [address] [address] [address] Pearl Young VLDL CALC 26.8 mg/dL Normal [facility] Comment on above: Performed By: #### C MP, LIPID, URIC #### [facility] [address] [address] [address] Pearl Young MICROALBUMIN, RAND URon 08-0 mALB <1.3 Normal <=30.0 [facility] Comment on above: Performed By: #### C MP, LIPID, URIC #### [facility] [address] [place] [address] Dr. Pearl Young PROF 14(COMP METB)on 022 Albumin [Mass/Vol] 3.5 g/dL Normal 3.4-5.0 [facility] Comment on above: Performed By: #### C MP, LIPID, URIC #### [facility] [address] [address] [address] Pearl Young Albumin/Globulin [Mass ratio] 0.9 {ratio} Normal [facility] Comment on above: Performed By: #### C MP, LIPID, URIC #### [facility] [address] [address] [address] Pearl Young ALP [Catalytic activity/Vol] 110 U/L Normal 46-116 [facility] Comment on above: Performed By: #### C MP, LIPID, URIC #### [facility] [address] [address] [address] Pearl Young ALT [Catalytic activity/Vol] 44 U/L Normal 14-59 [facility] Comment on above: Performed By: #### C MP, LIPID, URIC #### [facility] [address] [address] [address] Pearl Young Anion gap [Moles/Vol] 11.6 mmol/L Normal [facility] Comment on above: Performed By: #### C MP, LIPID, URIC #### [facility] [address] [address] [address] Pearl Young AST [Catalytic activity/Vol] 21 U/L Normal 15-37 [facility] Comment on above: Performed By: #### C MP, LIPID, URIC #### [facility] [address] [address] [address] Pearl Young Bilirubin [Mass/Vol] 0.7 mg/dL Normal 0.2-1.0 [facility] Comment on above: Performed By: #### C MP, LIPID, URIC #### [facility] [address] [address] [address] Pearl Young Calcium [Mass/Vol] 9.3 mg/dL Normal 8.5-10.1 [facility] Comment on above: Performed By: #### C MP, LIPID, URIC #### [facility] [address] [address] [address] Pearl Young Chloride [Moles/Vol] 103 mmol/L Normal 98-107 [facility] Comment on above: Performed By: #### C MP, LIPID, URIC #### [facility] [address] [address] [address] Pearl Young CO2 [Moles/Vol] 30.6 mmol/L Normal 21.0-32.0 [facility] Comment on above: Performed By: #### C MP, LIPID, URIC #### [facility] [address] [address] [address] Pearl Young Creatinine [Mass/Vol] 0.82 mg/dL Normal 0.55-1.02 [facility] Comment on above: Performed By: #### C MP, LIPID, URIC #### [facility] [address] [place] [address] Dr. Pearl Young EGFR-AF MEXICAN >60 Normal >=60 [facility] Comment on above: Performed By: #### C MP, LIPID, URIC #### [facility] [address] [address] [address] Pearl Young EGFR-NON AF MEXICAN >60 Normal >=60 [facility] Comment on above: Performed By: #### C MP, LIPID, URIC #### [facility] [address] [address] [address] Pearl Young Globulin (S) [Mass/Vol] 4.1 g/dL Normal [facility] Comment on above: Performed By: #### C MP, LIPID, URIC #### [facility] [address] [address] [address] Pearl Young Glucose [Mass/Vol] 119 mg/dL Critically high 74-106 [facility] Comment on above: Performed By: #### C MP, LIPID, URIC #### [facility] [address] [address] [address] Pearl Young Potassium [Moles/Vol] 4.2 mmol/L Normal 3.5-5.1 [facility] Comment on above: Performed By: #### C MP, LIPID, URIC #### [facility] [address] [address] [address] Pearl Young Protein [Mass/Vol] 7.6 g/dL Normal 6.4-8.2 [facility] Comment on above: Performed By: #### C MP, LIPID, URIC #### [facility] [address] [place] [address] Dr. Pearl Young Sodium [Moles/Vol] 141 mmol/L Normal 136-145 [facility] Comment on above: Performed By: #### C MP, LIPID, URIC #### [facility] [address] [place] [address] Dr. Pearl Young Urea nitrogen [Mass/Vol] 12.0 mg/dL Normal 7.0-18.0 [facility] Comment on above: Performed By: #### C MP, LIPID, URIC #### [facility] [address] [place] [address] Dr. Pearl Young Urea nitrogen/Creatinine [Mass ratio] 14.6 mg/mg Normal [facility] Comment on above: Performed By: #### C MP, LIPID, URIC #### [facility] [address] [place] [address] Dr. Pearl Young [facility] SED RATE 37 mm/hr Critically high <=20 [facility] Comment on above: Performed By: #### S EDR #### [facility] [address] [place] [address] Dr. Pearl Young UA RANDOM W/MICROSCOPICon BACTERIA NONE SEEN Normal NONE SEEN [facility] Comment on above: Performed By: #### C MP, LIPID, URIC #### [facility] [address] [place] [address] Dr. Pearl Young Bilirubin Ql (U) Negative Normal NEGATIVE [facility] Comment on above: Performed By: #### C MP, LIPID, URIC #### [facility] [address] [place] [address] Dr. Pearl Young CAST SEEN Abnormal NONE SEEN [facility] Comment on above: Performed By: #### C MP, LIPID, URIC #### [facility] [address] [place] [address] Dr. Pearl Young Clarity (U) CLEAR Normal CLEAR [facility] Comment on above: Performed By: #### C MP, LIPID, URIC #### [facility] [address] [address] [address] Pearl Young Color (U) YELLOW Normal YELLOW [facility] Comment on above: Performed By: #### C MP, LIPID, URIC #### [facility] [address] [address] [address] Pearl Young Crystals LM Nom (Urine sed) NONE SEEN Normal NONE SEEN [facility] Comment on above: Performed By: #### C MP, LIPID, URIC #### [facility] [address] [address] [address] Pearl Young Epithelial cells LM Ql (Urine sed) RARE Normal NONE SEEN /RARE [facility] Comment on above: Performed By: #### C MP, LIPID, URIC #### [facility] [address] [place] [address] Dr. Pearl Young Glucose Ql (U) >1000 Abnormal NEGATIVE [facility] Comment on above: Performed By: #### C MP, LIPID, URIC #### [facility] [address] [address] [address] Pearl Young Hemoglobin Ql (U) Negative Normal NEGATIVE [facility] Comment on above: Performed By: #### C MP, LIPID, URIC #### [facility] [address] [address] [address] Pearl Young HYALINE CAST RARE Normal [facility] Comment on above: Performed By: #### C MP, LIPID, URIC #### [facility] [address] [address] [address] Pearl Young Ketones Ql (U) Negative Normal NEGATIVE [facility] Comment on above: Performed By: #### C MP, LIPID, URIC #### [facility] [address] [address] [address] Pearl Young LEUKOCYTES Negative Normal NEGATIVE [facility] Comment on above: Performed By: #### C MP, LIPID, URIC #### [facility] [address] [address] [address] Pearl Young MUCOUS TRACE Abnormal NONE SEEN [facility] Comment on above: Performed By: #### C MP, LIPID, URIC #### [facility] [address] [address] [address] Pearl Young Nitrite Ql (U) Negative Normal NEGATIVE [facility] Comment on above: Performed By: #### C MP, LIPID, URIC #### [facility] [address] [address] [address] Pearl Young pH (U) 6.0 [pH] Normal 5-9 [facility] Comment on above: Performed By: #### C MP, LIPID, URIC #### [facility] [address] [address] [address] Pearl Young RBC NONE SEEN Abnormal 0-2 [facility] Comment on above: Performed By: #### C MP, LIPID, URIC #### [facility] [address] [place] [address] Dr. Pearl Young SPEC GRAVITY 1.020 Normal 1.005-<=1.025 [facility] Comment on above: Performed By: #### C MP, LIPID, URIC #### [facility] [address] [place] [address] Dr. Pearl Young UA PROTEIN Negative Normal NEGATIVE/ TRACE [facility] Comment on above: Performed By: #### C MP, LIPID, URIC #### [facility] [address] [address] [address] Pearl Young Urobilinogen Qn (U) 0.2 {Jenny'U}/dL Normal 0.2 - 1. 0 [facility] Comment on above: Performed By: #### C MP, LIPID, URIC #### [facility] [address] [place] [address] Dr. Pearl Young WBC NONE SEEN Normal NONE SEEN [facility] Comment on above: Performed By: #### C MP, LIPID, URIC #### [facility] [address] [place] [address] Dr. Pearl Young URIC ACID SERUMon 01-10-2022 Urate [Mass/Vol] 6.1 mg/dL Critically high 2.6-6.0 [facility] Comment on above: Performed By: #### C MP, LIPID, URIC #### [facility] [address] [place] [address] Dr. Pearl Young CULTURE URINEon 07-09-2021 CULTURE URINE Isolate 1 Klebsiella pneumoniae 80,000 cfu/mL of ORGANISM 1 Klebsiella pneumoniae ANTIBIOTIC M.I.C RX STATUS Ampicillin >=32 R F Ampicillin/Sulbacta m 4 S F Piperacillin/Tazoba ctam <=4 S F Cefazolin <=4 S F Ceftazidime <=1 S F Ceftriaxone <=1 S F Ertapenem <=0.5 S F Imipenem <=0.25 S F Amikacin <=2 S F Gentamicin <=1 S F Tobramycin <=1 S F Ciprofloxacin <=0.25 S F Levofloxacin <=0.12 S F Nitrofurantoin 64 I F Trimethoprim/Sulfam ethoxazole <=20 S F Normal [facility] Comment on above: Performed By: #### C MP, LIPID, URIC #### [facility] [address] [place] [address] Dr. Pearl Young CBC AUTO DIFFon 07-07-2021 BASO # 0.1 103/ul Normal 0.0-0.1 [facility] Comment on above: Performed By: #### C MP, LIPID, URIC #### [facility] [address] [place] [address] Dr. Pearl Young Basophils/100 WBC (Bld) 0.6 % Normal 0.2-2.0 [facility] Comment on above: Performed By: #### C MP, LIPID, URIC #### [facility] [address] [place] [address] Dr. Pearl Young EO # 0.2 103/ul Normal 0.0-0.7 [facility] Comment on above: Performed By: #### C MP, LIPID, URIC #### [facility] [address] [place] [address] Dr. Pearl Young Eosinophils/100 WBC (Bld) 1.2 % Normal 0.9-7.0 [facility] Comment on above: Performed By: #### C MP, LIPID, URIC #### [facility] [address] [address] [address] Pearl Young Erythrocyte distribution width (RBC) [Ratio] 17.6 % Critically high 11.0-15.0 [facility] Comment on above: Performed By: #### C MP, LIPID, URIC #### [facility] [address] [place] [address] Dr. Pearl Young Hematocrit (Bld) [Volume fraction] 49.4 % Critically high 36.0-48.0 [facility] Comment on above: Performed By: #### C MP, LIPID, URIC #### [facility] [address] [address] [address] Pearl Young Hemoglobin (Bld) [Mass/Vol] 15.6 g/dL Normal 12.0-16.0 [facility] Comment on above: Performed By: #### C MP, LIPID, URIC #### [facility] [address] [place] [address] Dr. Pearl Young IG # 0.10 10e3/ul Critically high 0.00-0.03 [facility] Comment on above: Performed By: #### C MP, LIPID, URIC #### [facility] [address] [address] [address] Pearl Young IG % 0.8 % Critically high 0.0-0.5 [facility] Comment on above: Performed By: #### C MP, LIPID, URIC #### [facility] [address] [place] [address] Dr. Pearl Young LYMPH # 2.1 103/ul Normal 1.2-3.8 [facility] Comment on above: Performed By: #### C MP, LIPID, URIC #### [facility] [address] [place] [address] Dr. Pearl Young Lymphocytes/100 WBC (Bld) 16.7 % Critically low 20.5-60.0 [facility] Comment on above: Performed By: #### C MP, LIPID, URIC #### [facility] [address] [place] [address] Dr. Pearl Young MANUAL DIFF REQ NO Normal [facility] Comment on above: Performed By: #### C MP, LIPID, URIC #### [facility] [address] [place] [address] Dr. Pearl Young MCH (RBC) [Entitic mass] 28.4 pg Normal 26.7-34.0 [facility] Comment on above: Performed By: #### C MP, LIPID, URIC #### [facility] [address] [place] [address] Dr. Pearl Young MCHC (RBC) [Mass/Vol] 31.6 g/dL Normal 29.9-35.2 [facility] Comment on above: Performed By: #### C MP, LIPID, URIC #### [facility] [address] [place] [address] Dr. Pearl Young MCV (RBC) [Entitic vol] 89.8 fL Normal 81.0-99.0 [facility] Comment on above: Performed By: #### C MP, LIPID, URIC #### [facility] [address] [place] [address] Dr. Pearl Young MONO # 0.8 103/ul Normal 0.3-0.8 [facility] Comment on above: Performed By: #### C MP, LIPID, URIC #### [facility] [address] [place] [address] Dr. Pearl Young Monocytes/100 WBC (Bld) 6.7 % Normal 1.7-12.0 [facility] Comment on above: Performed By: #### C MP, LIPID, URIC #### [facility] [address] [place] [address] Dr. Pearl Young NEUT # 9.2 103/ul Critically high 1.4-6.5 [facility] Comment on above: Performed By: #### C MP, LIPID, URIC #### [facility] [address] [place] [address] Dr. Pearl Young Neutrophils/100 WBC (Bld) 74.0 % Normal 43.0-75.0 [facility] Comment on above: Performed By: #### C MP, LIPID, URIC #### [facility] [address] [place] [address] Dr. Pearl Young Platelet mean volume (Bld) [Entitic vol] 10.6 fL Normal 9.5-13.5 [facility] Comment on above: Performed By: #### C MP, LIPID, URIC #### [facility] [address] [address] [address] Pearl Young PLT 265 103/ul Normal 150-450 [facility] Comment on above: Performed By: #### C MP, LIPID, URIC #### [facility] [address] [address] [address] Pearl Young RBC 5.50 106/ul Critically high 4.20-5.40 [facility] Comment on above: Performed By: #### C MP, LIPID, URIC #### [facility] [address] [address] [address] Pearl Young WBC 12.4 103/ul Critically high 4.0-11.0 [facility] Comment on above: Performed By: #### C MP, LIPID, URIC #### [facility] [address] [place] [address] Dr. Pearl Young FERRITINon 07-07-2021 Ferritin [Mass/Vol] 41.0 ng/mL Normal 6.2-137.0 [facility] Comment on above: Performed By: #### F ERR, IRON #### [facility] [address] [place] [address] Dr. Pearl Young GLYCOHEMOGLOBIN A1Con 2021 ADA RECOMMENDATION ADA THERAPEUTIC TARGET 6.0 - 7.0 ACTION SUGGESTED > 7.0 Normal [facility] Comment on above: Performed By: #### C MP, LIPID, URIC #### [facility] [address] [place] [address] Dr. Pearl Young Glucose [Mass/Vol] 143 mg/dL Normal [facility] Comment on above: Performed By: #### C MP, LIPID, URIC #### [facility] [address] [place] [address] Dr. Pearl Young HbA1c (Bld) [Mass fraction] 6.6 % Critically high <=6.0 [facility] Comment on above: Performed By: #### C MP, LIPID, URIC #### [facility] [address] [address] [address] Pearl Young IRONon 07-07-2021 Iron [Mass/Vol] 166.0 ug/dL Normal 37.0-170.0 [facility] Comment on above: Performed By: #### F ERR, IRON #### [facility] [address] [address] [address] Pearl Young PROF CHEM 8 (BAS METB)on Anion gap [Moles/Vol] 9.6 mmol/L Normal [facility] Comment on above: Performed By: #### B MP #### [facility] [address] [place] [address] Dr. Pearl Young Calcium [Mass/Vol] 9.5 mg/dL Normal 8.4-10.2 [facility] Comment on above: Performed By: #### B MP #### [facility] [address] [address] [address] Pearl Young Chloride [Moles/Vol] 102 mmol/L Normal 98-107 [facility] Comment on above: Performed By: #### B MP #### [facility] [address] [place] [address] Dr. Pearl Young CO2 [Moles/Vol] 31.2 mmol/L Critically high 22.0-30.0 [facility] Comment on above: Performed By: #### B MP #### [facility] [address] [address] [address] Pearl Young Creatinine [Mass/Vol] 0.78 mg/dL Normal 0.52-1.04 [facility] Comment on above: Performed By: #### B MP #### [facility] [address] [place] [address] Dr. Pearl Young EGFR-AF MEXICAN >60 Normal >=60 [facility] Comment on above: Performed By: #### B MP #### [facility] [address] [place] [address] Dr. Pearl Young EGFR-NON AF MEXICAN >60 Normal >=60 [facility] Comment on above: Performed By: #### B MP #### [facility] [address] [address] [address] Pearl Young Glucose [Mass/Vol] 99 mg/dL Normal 74-106 [facility] Comment on above: Performed By: #### B MP #### [facility] [address] [address] [address] Pearl Young Potassium [Moles/Vol] 3.8 mmol/L Normal 3.4-5.0 [facility] Comment on above: Performed By: #### B MP #### [facility] [address] [address] [address] Pearl Young Sodium [Moles/Vol] 139 mmol/L Normal 137-145 [facility] Comment on above: Performed By: #### B MP #### [facility] [address] [address] [address] Pearl Young Urea nitrogen [Mass/Vol] 12.0 mg/dL Normal 7.0-17.0 [facility] Comment on above: Performed By: #### B MP #### [facility] [address] [address] [address] Pearl Young Urea nitrogen/Creatinine [Mass ratio] 15.4 mg/mg Normal [facility] Comment on above: Performed By: #### B MP #### [facility] [address] [address] [address] Pearl Young Vital Signs Date Time Vital Sign Value Performing Clinician Faci lity 03-20-2024 09: Body height 162.6 cm Elvia Hall FOREST MANAGEMENT TEACHER Work Phone: [facility] 03-20-2024 09:040 Body mass index (BMI) [Ratio] 54.28 kg/m2 Elvia Hall FOREST MANAGEMENT TEACHER Work Phone: [facility] 03-20-2024 09:10040 Body temperature 98.1 [degF] Elvia Hall FOREST MANAGEMENT TEACHER Work Phone: [facility] 03-20-2024 09:100400 Body weight 143.43 kg Elvia Barreraholz FOREST MANAGEMENT TEACHER Work Phone: [facility] 03-20-2024 09:10-0400 Diastolic blood pressure 86 mm[Hg] Elvia Aichholz FOREST MANAGEMENT TEACHER Work Phone: [facility] 03-20-2024 09:10-0400 Heart rate 76 /min Elvia Aichholz FOREST MANAGEMENT TEACHER Work Phone: [facility] 03-20-2024 09:10-0400 Respiratory rate 19 /min Elvia Aichholz FOREST MANAGEMENT TEACHER Work Phone: [facility] 03-20-2024 09:100400 SaO2% (BldA) [Mass fraction] 98 % Elvia Aichholz FOREST MANAGEMENT TEACHER Work Phone: [facility] 03-20-2024 09:10-0400 Systolic blood pressure 122 mm[Hg] Elvia Aichholz FOREST MANAGEMENT TEACHER Work Phone: [facility] Encounters Encounter Date Encounter Type Care Provider Facility Start: 03-20-2024 End: 03-20-2024 Bamboo flowsheet Elvia Aichholz FOREST MANAGEMENT TEACHER Work Phone: [facility] Start: 03-20-2024 End: 03-20-2024 Bamboo flowsheet Elvia Aichholz FOREST MANAGEMENT TEACHER Work Phone: [facility] Start: 03-20-2024 End: 03-20-2024 Office outpatient visit 25 minutes Elvia Barreraholz FOREST MANAGEMENT TEACHER Work Phone: [facility] Comment on above: Type 2 diabetes nelly itus without complication, without long- term current use of insulin ([facility]) (Primary Dx); Gout, unspecified cause, unspecified chronicity, unspecified site; Essential hypertension, benign (CMS/[facility]); Mixed hyperlipidemia (CMS/[facility]); Environmental and seasonal allergies; Vitamin deficiency; Gastroesophageal reflux disease, unspecified whether esophagitis present; Major depressive disorder, recurrent episode, moderate (CMS/[facility]); Morbid obesity ([facility]); Urinary tract infection symptoms Start: 03-20-2024 End: 03-20-2024 ambulatory ELVIA AICHHOLZ Not Available Start: 03-16-2024 End: 03-16-2024 Refill Elvia Aichholz FOREST MANAGEMENT TEACHER Work Phone: [facility] Comment on above: Urinary tract infect ion symptoms (Primary Dx) Start: 03-13-2024 End: 03-13-2024 Clinisync Result Encounter Elvia Aichholz FOREST MANAGEMENT TEACHER Work Phone: [facility] Unsolicited Start: 03-13-2024 End: 03-13-2024 Clinisync Result Encounter Elvia Aichholz FOREST MANAGEMENT TEACHER Work Phone: [facility] Unsolicited Start: 12-20-2023 End: 12-20-2023 ambulatory ELVIA AICHHOLZ Not Available Start: 09-13-2023 End: 09-13-2023 ambulatory ELVIA AICHHOLZ Not Available Start: 09-13-2023 Patient encounter procedure Elvia Aichholz FOREST MANAGEMENT TEACHER Work Phone: [facility] Start: 07-26-2023 Refill Elvia Aichholz FOREST MANAGEMENT TEACHER Work Phone: [facility] Comment on above: Major depressive dis order, recurrent episode, moderate (HCC) (CMS/HCC) (Primary Dx) Start: 06-12-2023 End: 06-12-2023 ambulatory ELVIA AICHHOLZ Not Available Start: 04-11-2022 End: 04-11-2022 ambulatory TEST FIXTURE ASSEMBLER ELVIA AICHHOLZ Facility:[facility] Start: 03-28-2022 End: 03-29-2022 ambulatory TEST FIXTURE ASSEMBLER ELVIA AICHHOLZ Facility:[facility] Start: 01-10-2022 End: 01-11-2022 ambulatory TEST FIXTURE ASSEMBLER ELVIA AICHHOLZ Facility:[facility] Start: 07-07-2021 End: 07-08-2021 ambulatory TEST FIXTURE ASSEMBLER ELVIA AICHHOLZ Facility:[facility] Procedures Date Procedure Procedure Detail Performing Clinician Start: 03-13-2024 TBH UA (CLEAN/CATCH) MICROSCOPIC IF INDICATE Elvia Aichholz FOREST MANAGEMENT TEACHER Work Phone: Start: 06-12-2023 Mammography Elvia Aichh olz FOREST MANAGEMENT TEACHER Work Phone: Start: 06-12-2023 Microscopic observat ion [Identifier] in Cervix by Cyto stain Elvia Hall FOREST MANAGEMENT TEACHER Work Phone: Plan of Treatment Date Care Activity Detail Author Start: 08-15-2026 Screening for malign ant neoplasm of colon [facility] Start: 06-12-2026 Screening for malign ant neoplasm of cervix [facility] Start: 04-05-2025 Glaucoma screening Diabetes: R etinopathy Screening [facility] Start: 12-31-2024 Urine screening for protein Diabetes: Urine Protein Screening [facility] Start: 09-12-2024 Medicare Annual Well ness (AWV) Medicare Annual Wellness (AWV) [facility] Start: 07-03-2024 Hemoglobin A1c measurement Diabetes: Hemoglobin A1C [facility] Start: 06-12-2024 Screening for malign ant neoplasm of breast Mammogram [facility] Start: 03-20-2024 End: 03-20-2025 Bacteria identified in Urine by Culture Urine culture (clean catch) Microbiology Routine Urinary tract infection symptoms Expected: 03/20/2024 (Approximate), Expires: 03/20/2025 [facility] Comment on above: Expected: 03/20/2024 (Approximate), Expires: 03/20/2025 Start: 03-20-2024 End: 03-20-2025 Urinalysis complete panel - Urine Urinalysis with reflex microscopic (clean catch) Lab Routine Urinary tract infection symptoms Expected: 03/20/2024 (Approximate), Expires: 03/20/2025 [facility] Work Phone: Comment on above: Expected: 03/20/2024 (Approximate), Expires: 03/20/2025 Start: 03-20-2024 End: 03-20-2024 Patient encounter procedure [facility] Comment on above: Gout, unspecified ca use, unspecified chronicity, unspecified site; Essential hypertension, benign (CMS/HCC); Mixed hyperlipidemia (CMS/HCC); Environmental and seasonal allergies; Type 2 diabetes mellitus without complication, without long-term current use of insulin (CMS/HCC); Vitamin deficiency; Gastroesophageal reflux disease, unspecified whether esophagitis present; Major depressive disorder, recurrent episode, moderate (CMS/HCC) Start: 03-10-2024 Urine screening for protein Diabetes: Urine Protein Screening [facility] Start: 12-09-2023 Influenza vaccination Influenza Vacc ine (#1) [facility] Comment on above: Postponed from 02/09 (Patient Refused) Start: 09-13-2023 End: 09-13-2023 Patient encounter procedure 09/13/2023 4:30 PM EDT Office Visit [facility] [address] [place] [id number] Elvia Hall, ELIZABETH [address] [place] [id number] [facility] Start: 09-08-2023 Hemoglobin A1c measurement Diabetes: Hemoglobin A1C [facility] Start: 06-09-2023 Hemoglobin A1c measurement Diabetes: Hemoglobin A1C [facility] Start: 2002 Screening for malign ant neoplasm of cervix HPV/Cotest [facility] Start: 1972 Medicare Annual Well ness (AWV) Medicare Annual Wellness (AWV) [facility] Start: 1972 Screening for malign ant neoplasm of colon [facility] Immunizations Immunization Date Immunization Notes Care Provider Fa [facility] 04-24-2019 Influenza, injectabl e, Madin Becky Canine Kidney, preservative free, quadrivalent Elvia Hall FOREST MANAGEMENT TEACHER Work Phone: [facility] 05-05-2015 influenza, seasonal, injectable, preservative free Elvia Hall FOREST MANAGEMENT TEACHER Work Phone: [facility] Payers Date Payer Category Payer Medicare ANTHEM MEDICARE ADVANTAGE ANTH MEDICARE ADVANTAGE [id number] 2020-Present [address] [place] [address] [id number] 2018 Medicaid [id number] 1972 Unknown [id number] 1972 Unknown [id number] 1972 Unknown [id number] 1972 Unknown [id number] 1972 Unknown [id number] 1972 Unknown [id number] 1972 Unknown [id number] 1972 Unknown [id number] 1959 Medicaid [id number] 1959 Unknown [id number] Social History Date Type Detail Facility Start: 06-10-2023 Tobacco smoking status [facility] Ex-smoke r [facility] End: 06-11-2013 History of tobacco use Current smoker [facility] End: 06-11-2013 History of tobacco use Cigarette Smoker [facility] Start: 06-12-2023 End: 03-20-2024 Alcohol intake Ex-drinker (finding) [facility] Start: 06-05-2023 End: 12-20-2023 History of Social function [facility] Start: 06-05-2023 End: 12-20-2023 Humiliation, Afraid, Rape, and Kick questionnaire [HARK] [facility] Within the last year , have you been afraid of your partner or ex-partner? No [facility] How often do you att end sabianist or gnosticism services? Patient declined [facility] Are you [...] Sex Assigned At Not on file [facility] History of Present illness Narrative 03-20-2024 Elvia Hall NP - 03/20/2024 9:51 AM Sridhar Hall NP - 03/20/2024 9:51 AM Sridhar Hall NP - 03/20/2024 9:50 AM Sridhar Hall NP - 03/20/2024 9:49 AM EDT Note Date & Type Note Facility 03-20-2024 History of Presen t illness Narrative Associated Problem(s): Major depressive disorder, recurrent episode, moderate (CMS/HCC) Has had some increase in depression recently, no SI/HI Declines meds, declines counseling Associated Problem(s): Type 2 diabetes mellitus without complication (CMS/HCC) Check blood sugars daily, notify if <70 or >200. Take medications (pills or insulin) as directed. Monitor for s/s of hypoglycemia (sweaty, dizziness, nausea, vomiting, or shakiness). Watch for increase in thirst, urination, or appetite. Inspect feet frequently monitoring for open wounds , and also recommend yearly eye exam. Pt should attempt to remain as physically active as chronic conditions allow, as well as trying to follow a diet low in carbohydrates, and simple sugars. Will send rx for new sensor, as well as reader Associated Problem(s): Urinary tract infection symptoms Finish atb, fu culture when complete Associated Problem(s): Essential hypertension, benign (CMS/HCC) At goal no changes to med dose Fu in 3 months Pt is currently on bactrim for UTI Pt would like to discuss getting a new reader; she states that she has had three bad sensors in a row and believes it is the reader. Pt would like a prescription sent in for d2 Pt has been around 116-136 as her fast BS Images from the original note were not included. Alicia Drake is a 53 y.o. female presents with chief complaint of No chief complaint on file. HPI: Diabetes She presents for her follow-up diabetic visit. She has type 2 diabetes mellitus. Her disease course has been stable. There are no hypoglycemic associated symptoms. Pertinent negatives for hypoglycemia include no dizziness, headaches, nervousness/anxiousness, seizures or tremors. There are no diabetic associated symptoms. Pertinent negatives for diabetes include no blurred vision, no chest pain, no fatigue, no foot paresthesias, no polydipsia, no polyphagia, no polyuria and no weakness. There are no hypoglycemic complications. Symptoms are stable. Risk factors for coronary artery disease include diabetes mellitus, dyslipidemia, hypertension, obesity and sedentary lifestyle. Current diabetic treatment includes oral agent (dual therapy) and oral agent (triple therapy). An VALERIANO inhibitor/angiotensin II receptor rupesh is being taken. She does not see a pmo project manager.Eye exam is current. Hypertension This is a chronic problem. The current episode started more than 1 year ago. The problem is unchanged. The problem is controlled. Pertinent negatives include no blurred vision, chest pain, headaches, palpitations, peripheral edema or shortness of breath. There are no associated agents to hypertension. Risk factors for coronary artery disease include diabetes mellitus, dyslipidemia, obesity and sedentary lifestyle. Past treatments include VALERIANO inhibitors, beta blockers and diuretics. The current treatment provides significant improvement. There are no compliance problems. Depression Visit Type: follow-up Patient presents with the following symptoms: depressed mood and muscle tension. Patient is not experiencing: anhedonia, excessive worry, irritability, nervousness/anxiety, palpitations, shortness of breath, suicidal ideas, suicidal planning and thoughts of . Frequency of symptoms: most days Severity: moderate Compliance with medications: 76-100% UTI This is a new problem. The current episode started in the past 7 days. The problem has been gradually improving since onset. Associated symptoms include pain. The pain is present in the back. SUBJECTIVE: MEDICATIONS: Current Outpatient Medications Medication Instructions allopurinol (ZYLOPRIM) 100 mg, Oral, Every morning atenolol (TENORMIN) 50 mg, Oral, Daily atorvastatin (LIPITOR) 40 mg, Oral, Every evening Blood Glucose Monitoring Suppl w/Device kit Does not apply cetirizine (ZYRTEC) 10 mg, Oral, Daily Continuous Blood Gluc Materials Management Manager (FreeStyle Katherine 2 [place]) device Does not apply Continuous Glucose Sensor (FreeStyle Katherine 2 Sensor) misc 1 each, Other, 2 times daily empagliflozin (JARDIANCE) 25 mg, Oral, Daily ergocalciferol (VITAMIN D2) 1.25 mg, Oral, Weekly, Take 1 capsule by mouth 1 (one) time per week ferrous sulfate 325 mg, Oral, Daily with breakfast glipiZIDE (GLUCOTROL) 2.5 mg, Oral, Daily hydroCHLOROthiazide (HYDRODIURIL) 25 mg, Oral, Daily lisinopril 40 mg, Oral, Daily pantoprazole (PROTONIX) 40 mg, Oral, Daily PRN polyethylene glycol, PEG, 3350 (Miralax) 17 g packet Oral sulfamethoxazole-trimethoprim (Bactrim DS) 800-160 MG per tablet 1 tablet, Oral, Every 12 hours venlafaxine (EFFEXOR) 150 mg, Oral, 2 times daily ALLERGIES: Allergies Allergen Reactions Codeine Phosphate [Codeine] Mobic [Meloxicam] REVIEW OF SYMPTOMS: Review of Systems Constitutional: Negative for appetite change, chills, fatigue, fever, irritability and unexpected weight change. HENT: Negative for congestion, ear pain, sinus pressure, sinus pain and sore throat. Eyes: Negative for blurred vision, pain, discharge, redness and visual disturbance. Breasts: Negative for breast mass and breast discharge. Respiratory: Negative for apnea, cough, chest tightness, shortness of breath and wheezing. Cardiovascular: Negative for chest pain, palpitations and leg swelling. Gastrointestinal: Negative for abdominal pain, blood in stool, constipation, diarrhea, nausea and vomiting. Genitourinary: Positive for dysuria. Negative for decreased urine volume, difficulty urinating and frequency. Musculoskeletal: Negative for arthralgias, back pain, gait problem, joint swelling and myalgias. Skin: Negative for color change, rash and wound. Neurological: Negative for dizziness, tremors, seizures, syncope, weakness and headaches. Psychiatric/Behavioral: Positive for depression. Negative for agitation, behavioral problems, hallucinations, self-injury and suicidal ideas. The patient is not nervous/anxious. Depression Hematological: Negative for adenopathy. Does not bruise/bleed easily. Endocrine: Negative for cold intolerance, heat intolerance, polydipsia, polyphagia and polyuria. Allergic/Immunologic: Negative for environmental allergies and food allergies. PAST MEDICAL HISTORY Past Medical History: Diagnosis Date Anemia Antibiotic-induced yeast infection 06/12/2023 Arthralgia Arthritis Bilateral chronic knee pain Breast cancer screening 06/12/2023 Candidiasis, intertriginous Chronic bilateral low back pain without sciatica Chronic sinusitis Colon cancer screening 06/12/2023 Colon cancer screening 06/12/2023 Common wart Constipation Dental abscess 06/12/2023 Dental infection Depression (CMS/HCC) Diabetes mellitus type 2 in obese (CMS/HCC) Dyslipidemia (CMS/HCC) Female pattern hair loss Gastroesophageal reflux disease with esophagitis Gout History of anemia Insomnia, persistent Iron deficiency anemia Left shoulder pain Medial epicondylitis, right Morbid obesity (CMS/HCC) 06/12/2023 Obesity PCO (polycystic ovaries) Peripheral edema Plantar fasciitis of right foot Polycystic ovarian syndrome Right elbow pain Rosacea Seasonal allergic rhinitis due to pollen Situational anxiety Takes dietary supplements Vitamin D deficiency History reviewed. No pertinent surgical history. family history includes Diabetes in her father; Heart disease in her father; Hypertension in her mother; Mental illness in her mother. OBJECTIVE: Visit Vitals Resp 19 Ht 5' 4 Wt 316 lb 3.2 oz BMI 54.28 kg/m Smoking Status Former BSA 2.54 m Physical Exam Vitals and nursing note reviewed. Constitutional: General: She is not in acute distress. Appearance: Normal appearance. She is obese. HENT: Head: Normocephalic and atraumatic. Right Ear: External ear normal. Left Ear: External ear normal. Nose: Nose normal. Mouth/Throat: Mouth: Mucous membranes are moist. Eyes: Extraocular Movements: Extraocular movements intact. Conjunctiva/sclera: Conjunctivae normal. Cardiovascular: Rate and Rhythm: Normal rate and regular rhythm. Pulses: Normal pulses. Heart sounds: Normal heart sounds. Pulmonary: Effort: Pulmonary effort is normal. No respiratory distress. Breath sounds: Normal breath sounds. No wheezing or rales. Abdominal: General: Bowel sounds are normal. There is no distension. Palpations: Abdomen is soft. There is no mass. Tenderness: There is no abdominal tenderness. Musculoskeletal: General: Normal range of motion. Cervical back: Normal range of motion and neck supple. Right lower leg: No edema. Left lower leg: No edema. Skin: General: Skin is warm and dry. Capillary Refill: Capillary refill takes 2 to 3 seconds. Findings: No rash. Neurological: General: No focal deficit present. Mental Status: She is alert and oriented to person, place, and time. Psychiatric: Mood and Affect: Mood normal. Behavior: Behavior normal. Thought Content: Thought content normal. Judgment: Judgment normal. ASSESSMENT AND PLAN: No follow-ups on file. Problem List Items Addressed This Visit Major depressive disorder, recurrent episode, moderate (CMS/HCC) Has had some increase in depression recently, no SI/HI Declines meds, declines counseling Relevant Medications venlafaxine (Effexor) 75 MG tablet Gout Relevant Medications allopurinol (Zyloprim) 100 MG tablet Essential hypertension, benign (CMS/HCC) At goal no changes to med dose Fu in 3 months Relevant Medications atenolol (Tenormin) 50 MG tablet hydroCHLOROthiazide (HYDRODiuril) 25 MG tablet lisinopril 40 MG tablet Type 2 diabetes mellitus without complication (CMS/HCC) Check blood sugars daily, notify if <70 or >200. Take medications (pills or insulin) as directed. Monitor for s/s of hypoglycemia (sweaty, dizziness, nausea, vomiting, or shakiness). Watch for increase in thirst, urination, or appetite. Inspect feet frequently monitoring for open wounds , and also recommend yearly eye exam. Pt should attempt to remain as physically active as chronic conditions allow, as well as trying to follow a diet low in carbohydrates, and simple sugars. Will send rx for new sensor, as well as reader Relevant Medications empagliflozin (Jardiance) 25 MG glipiZIDE (Glucotrol) 5 MG tablet Continuous Glucose Materials Management Manager (FreeStyle Katherine 2 [place]) device Continuous Glucose Sensor (FreeStyle Katherine 2 Sensor) misc Mixed hyperlipidemia (CMS/HCC) Relevant Medications atorvastatin (Lipitor) 40 MG tablet GERD (gastroesophageal reflux disease) Relevant Medications pantoprazole (ProtoNix) 40 MG EC tablet Morbid obesity (CMS/HCC) - Primary Vitamin deficiency Relevant Medications ferrous sulfate 325 (65 Fe) MG EC tablet ergocalciferol (Vitamin D2) 1.25 MG (85625 UT) capsule Environmental and seasonal allergies Relevant Medications cetirizine (ZyrTEC) 10 MG tablet Urinary tract infection symptoms Finish atb, fu culture when complete Relevant Orders Urinalysis with reflex microscopic (clean catch) Urine culture (clean catch) documented in this encounter [facility] Evaluation note Note Date & Type Note Facility Evaluation note Diagnosis Major depressive disorder, recurrent episode, moderate (HCC) (CMS/HCC)- Primary Major depressive disorder, recurrent episode, moderate documented in this encounter [facility] Evaluation note Note Date & Type Note Facility Evaluation note Diagnosis Urinary tract infection symptoms- Primary documented in this encounter [facility] Evaluation note Note Date & Type Note Facility Evaluation note Diagnosis Type 2 diabetes mellitus without complication, without long-term current use of insulin (CMS/HCC)- Primary Gout, unspecified cause, unspecified chronicity, unspecified site Essential hypertension, benign (CMS/HCC) Essential hypertension, benign Mixed hyperlipidemia (CMS/HCC) Mixed hyperlipidemia Environmental and seasonal allergies Vitamin deficiency Unspecified vitamin deficiency Gastroesophageal reflux disease, unspecified whether esophagitis present Major depressive disorder, recurrent episode, moderate (CMS/HCC) Major depressive disorder, recurrent episode, moderate Morbid obesity (CMS/HCC) Morbid obesity Urinary tract infection symptoms documented in this encounter [facility] Summary Purpose Family History No Family History Records FoundNo Family History Records Found Advance Directives No Advanced Directives Records FoundNo Advanced Directives Records Found Additional Source Comments INFORMATION SOURCE (unrecogn ized section and content) DATE CREATED AUTHOR 04/14/2022 Vladimir harris DATE CREATED AUTHOR AUTHOR'S ORGANIZ ATION 03/22/2024 [facility] Care Teams (unrecognized sec tion and content) Assistant Basketball Coach Relationship Specialty Start Date End Date Ritesh Cain MD [address] [place] [phone] PCP - General Family Medicine 01/15/23 Elvia Hall NP [address] [place] [phone] Nurse Practitioner Family Medicine 01/15/23 Assistant Basketball Coach Relationship Specialty Start Date End Date Ritesh Cain MD [address] [place] [phone] PCP - General Family Medicine 09/13/23 Elvia Hall NP [address] [place] [phone] Nurse Practitioner Family Medicine 01/15/23 Elvia Hall NP [address] [place] [phone] Nurse Practitioner Family Medicine 09/13/23 Assistant Basketball Coach Relationship Specialty Start Date End Date Ritesh Cain MD [address] [place] [phone] PCP - General Family Medicine 09/13/23 Elvia Hall NP [address] [place] [phone] PCP - Benita MAURO 02/10/24 Elvia Hall NP [address] [place] [phone] Nurse Practitioner Family Medicine 01/15/23 Elvia Hall NP [address] [place] [phone] Nurse Practitioner Family Medicine 09/13/23 Assistant Basketball Coach Relationship Specialty Start Date End Date Ritesh Cain MD [address] [place] [phone] PCP - General Family Medicine 09/13/23 Elvia Hall NP [address] [place] [phone] PCP - Benita MAURO 02/10/24 Elvia Hall NP [address] [place] [phone] Nurse Practitioner Family Medicine 01/15/23 Elvia Hall NP [address] [place] [phone] Nurse Practitioner Family Medicine 09/13/23 Assistant Basketball Coach Relationship Specialty Start Date End Date Ritesh Cain MD [address] [place] [phone] PCP - General Family Medicine 09/13/23 Elvia Hall NP [address] [place] [phone] PCP - Benita MAURO 02/10/24 Elvia Hall NP [address] [place] [address] Nurse Practitioner Family Medicine 01/15/23 Elvia Hall NP [address] [place] [phone] Nurse Practitioner Family Medicine 09/13/23 FOR RECORDS PERTAINING TO PATIENTS WHO ARE [...] BE BASED ON THE PRIMARY CLINICAL RECORDS. [facility] [employer] provides no warranty or guarantee of the accuracy or completeness of information in this document.
[2024-04-07 13:18] LABS: Bilirubin Urine NEGATIVE (NEGATIVE); Blood Urine NEGATIVE (NEGATIVE); Clarity Urine CLEAR (CLEAR); Color Urine LT. YELLOW (YELLOW); Glucose Urine UA >=1000 mg/dL (NEGATIVE); Ketones Urine NEGATIVE (NEGATIVE); Leukocyte Esterase Urine TRACE (NEGATIVE); Nitrite Urine NEGATIVE (NEGATIVE); Protein Urine NEGATIVE (NEG/TRACE); Urobilinogen Urine 0.2 EU/dL (0.2-1.0)
[2024-04-07 13:45] LABS: Bacteria Urine NONE SEEN #/HPF (NONE SEEN); Cast Seen? NONE SEEN #/LPF (NONE SEEN); Crystals Seen? None Seen #/HPF (None Seen); Mucus Urine NONE SEEN (NONE SEEN); RBC Urine 0-2 #/HPF (0-2); Squamous Epithelial Cell Urine RARE #/LPF (NONE/RARE); WBC Urine 0-2 #/HPF (NONE SEEN)
[2024-04-07 13:46] LABS: Urine Culture Indicated ALREADY ORDERED
== END 2024-04-07 12:49 | disposition home or self-care (01) ==
LOC: LAB 12:50
PROVIDERS: PCP Nurse Practitioner; Visit Provider Nurse Practitioner
DX: R39.9 Unspecified symptoms and signs involving the genitourinary system (principal)
CPT/HCPCS: 81001; 87086

== ENCOUNTER 2025-05-27 07:34 | Outpatient (OUT) | payer MEDICARE, MEDICAID, SELFPAY ==
--- OUTSIDE RECORDS SUMMARY | 2025-05-27 07:41 | XMS_ITS | Clinical Summary ---
Author Organization [facility] s tem Address [id number] [place] [address] Care Team Providers Care Early Childhood Coordinator Name Role Phone Anita Locke ELZA-SCIENTIFIC PUBLICATIONS EDITOR Primary Care Provider [phone] Allergies Active AllergyReactionsCriticalityNoted JlmyFveiqldsMiztdyz12/08/2017Meloxicam 05/18/2017 Medications * This document contains information received from the source organization and may not represent a complete record from that organization. MedicationSigDispense QuantityRefillsLast FilledStart DateEnd DateStatus atenolol (TENORMIN) 50 mg tablet 04/28/2017Active atorvastatin (LIPITOR) 20 mg tablet 05/13/2017Active glipiZIDE (GLUCOTROL) 5 mg tablet 05/17/2017Active hydroCHLOROthiazide (HYDRODIURIL) 25 mg tablet 05/17/2017Active lisinopril (PRINIVIL,ZESTRIL) 20 mg tablet 04/18/2017Active omeprazole (PriLOSEC) 20 mg capsule 05/13/2017Active pioglitazone (ACTOS) 30 mg tablet 04/27/2017Active ferrous sulfate (IRON ORAL) Take by mouth 2 (two) times a day.Active oxymetazoline HCl (NASAL SPRAY 12 HOUR NASL) Administer into each nostril daily.Active venlafaxine (EFFEXOR) 75 mg tablet Indications:Major depressive disorder, recurrent episode, moderate (CMS-HCC)Take 2 tablets (150 mg total) by mouth 2 (two) times a day. 360 tablet 1Active Active Problems ProblemNoted DateDiagnosed DateMajor depressive disorder, recurrent episode, teywsuxt76/08/2017 Social History Tobacco UseTypesPacks/DayYears UsedDateSmoking Tobacco: Never AssessedChildcare AnswerDate YedaeorzSfmtoggzyYxynhwv34/12/2019EmploymentAnswerDate Recorded VwoaqvgesiUmxbrjl23/12/2019Purpose - LifeAnswerDate RecordedPurpose and direction in lmwnZpuscoy22/25/2021CommentsUnknownSex and Gender InformationValueDate RecordedSex Assigned at BirthNot on fileLegal SexFemale 01/14/2015 11:57 AM EDTGender IdentityNot on fileSexual OrientationNot on file Plan of Treatment Health MaintenanceDue DateLast DoneCommentsDepression Ejuyhehhn53/24/1985Tobacco Nofebfqzm63/24/1985Adult BMI Fbgdskqhk57/24/1991DTaP,Tdap and Td Vaccines (1 - Tdap)09/02/1991Pap Smear1993Zoster (Shingles) Vaccine (1 of 2)2022 Influenza Swkbbdl9802/09/2025 Medical Devices Not on file Insurance Care Teams Team MemberRelationshipSpecialtyStart DateEnd Date Anita Locke, BELL CLEANER-SCIENTIFIC PUBLICATIONS EDITOR PCP - GeneralNdaja Practitioner07/10/19
--- OUTSIDE RECORDS SUMMARY | 2025-05-27 07:42 | XMS_ITS | Clinical Summary ---
Author Organization [facility] Healthcare Address [address] [place] [place] [address] Care Team Providers Care Acute Care Nursing Assistant Name Role Phone Elvia Hall NP Unavailable [phone] Ritesh Cain MD Primary Care Provider [phone] Elvia Hall NP Unavailable [phone] Elvia Hall NP Unavailable [phone] Allergies Active AllergyReactionsCriticalityNoted DjobBbfktxbiKiahchu84/20/2023Meloxicam 02/28/2023 Medications MedicationSigDispense QuantityRefillsLast FilledStart DateEnd DateStatus Blood Glucose Monitoring Suppl w/Device kit Active atenolol (Tenormin) 50 MG tablet Indications:Essential hypertension, benignTake 1 tablet (50 mg) by mouth Daily 90 tablet 5Active atorvastatin (Lipitor) 40 MG tablet Indications:Mixed hyperlipidemiaTake 1 tablet (40 mg) by mouth in the evening 90 tablet 5Active cetirizine (ZyrTEC) 10 MG tablet Indications:Environmental and seasonal allergiesTake 1 tablet (10 mg) by mouth Daily 90 tablet 5Active empagliflozin (Jardiance) 25 MG Indications:Type 2 diabetes mellitus without complication, without long-term current use of insulin (HCC)Take 1 tablet (25 mg) by mouth Daily 90 tablet 5Active glipiZIDE (Glucotrol) 5 MG tablet Indications:Type 2 diabetes mellitus without complication, without long-term current use of insulin (HCC)Take 0.5 tablets (2.5 mg) by mouth Daily 45 tablet 5Active hydroCHLOROthiazide (HYDRODiuril) 25 MG tablet Indications:Essential hypertension, benignTake 1 tablet (25 mg) by mouth Daily 90 tablet 5Active lisinopril 40 MG tablet Indications:Essential hypertension, benignTake 1 tablet (40 mg) by mouth Daily 90 tablet 5Active pantoprazole (ProtoNix) 40 MG EC tablet Indications:Gastroesophageal reflux disease, unspecified whether esophagitis presentTake 1 tablet (40 mg) by mouth Daily as needed (acid refllux) 90 tablet 5Active venlafaxine (Effexor) 75 MG tablet Indications:Major Depressive DisorderTake 2 tablets (150 mg) by mouth in the morning and 2 tablets (150 mg) before bedtime. 360 tablet 5Active aspirin 81 MG EC tablet Take 81 mg by mouth DailyActive Active Problems ProblemNoted DateDiagnosed DateVitamin D njcgckkfnu01/06/2025 Assessment & Plan (01/14/2025 6:43 AM EDT): Check labs Acute non-recurrent maxillary fotjnrdzz08/06/2025Type 2 diabetes mellitus with other specified rsriaarljpyr60/23/2025 Assessment & Plan (01/14/2025 1:59 PM EDT): Has HLD, HTN Check blood sugars daily, notify if <70 or >200. Take medications (pills or insulin) as directed. Monitor for s/s of hypoglycemia (sweaty, dizziness, nausea, vomiting, or shakiness). Watch for increase in thirst, urination, or appetite. Inspect feet frequently monitoring for open wounds , andalso recommend yearly eye exam. Pt should attempt to remain as physically active as chronic conditions allow, as well as trying to follow a diet low in carbohydrates, and simple sugars. Current meds: statin, jardiance, gllipizide, noa A1c: 7.4% 01/14/25, 7.5% 10/01/24 Assessment & Plan (10/01/2024 7:14 AM EDT): Has HLD, HTN UTI jtvnsayd53/23/2025ody mass index (BMI) 50.0-59.9, adult06/23/2024Morbid (severe) obesity due to excess owbshwzi42/13/2025 Assessment & Plan (01/14/2025 6:40 AM EDT): Discussed with patient their BMI (actual, verses recommended). We have also discussed lifestyle modifications: attempts to perform physical activity as chronic conditions allow, also to monitor dietary intake: increasing protein/fruits/veggies and lowering carb intake (unless contraindicated). Limit sodas, juices, and sugary drinks. Also discussed oral medications that can be utilized for weight loss, as well as surgical options for weight loss. Assessment & Plan (10/01/2024 7:13 AM EDT): Discussed with patient their BMI (actual, verses recommended). We have also discussed lifestyle modifications: attempts to perform physical activity as chronic conditions allow, also to monitor dietary intake: increasing protein/fruits/veggies and lowering carb intake (unless contraindicated). Limit sodas, juices, and sugary drinks. Also discussed oral medications that can be utilized for weight loss, as well as surgical options for weight loss. Assessment & Plan (06/23/2024 9:10 AM EST): Discussed with patient their BMI (actual, verses recommended). We have also discussed lifestyle modifications: attempts to perform physical activity as chronic conditions allow, also to monitor dietary intake: increasing protein/fruits/veggies and lowering carb intake (unless contraindicated). Limit sodas, juices, and sugary drinks. Also discussed oral medications that can be utilized for weight loss, as well as surgical options for weight loss. Has gained about 25 pounds in last year Weight gain06/23/2024Other specified rdhlbpflxtbukj88/13/2025 Assessment & Plan (01/14/2025 6:40 AM EDT): Was treated as a child, no current meds for some time, however TSH has not been checked Assessment & Plan (06/23/2024 9:28 AM EST): Was treated as a child, no current meds for some time, however TSH has not been checked Pes planus of both feet06/23/2024Diabetic foot06/23/2024Lumbar back pain with radiculopathy affecting left lower ugqeutopw20/11/2024 Assessment & Plan (06/23/2024 9:10 AM EST): Was evaluated in office for this complaint in 06/03, given NSAID/muscle relaxer and stretching exercise Sxs have resolved Assessment & Plan (05/21/2024 3:31 PM EST): Ice to affected area 3-4 times daily for 20 minutes each Trial Naproxen (has taken in the past no reaction), also muscle relaxer may cause drowsiness Hand out on stretching exercise Fu if not better Acute cystitis without ktarudkba23/29/2024Urinary tract infection symptoms 12/25/2023 Assessment & Plan (03/20/2024 9:50 AM EDT): Finish atb, fu culture when complete Cvpnbtozzek52/11/2024Environmental and seasonal mhwsbalfn93/11/2024Encounter for subsequent annual wellness visit (AWV) in Medicare nckwdcc5509/13/2023 Assessment & Plan (10/01/2024 7:15 AM EDT): Reviewed Ht/Wt/BMI Recommend eye exam yearly Recommend dental exams twice a year Balance work/leisure activities Exercises is recommended most days of the week (appropriate as chronic conditions allow) Follow up yearly and prn Assessment & Plan (09/13/2023 5:02 PM EDT): Reviewed Ht/Wt/BMI Recommend eye exam yearly Recommend dental exams twice a year Balance work/leisure activities Exercises is recommended most days of the week (appropriate as chronic conditions allow) Follow up yearly and prn Gout06/12/2023 Assessment & Plan (01/14/2025 6:41 AM EDT): Meds: allopurinol Check labs yearly, prn dose changes or changes in sxs Essential hypertension, paubor5106/12/2023 Assessment & Plan (01/14/2025 6:39 AM EDT): Please check blood pressure daily and record DASH diet Limit caffeine Take medication as directed Contact office if chest pain, pressure, dizziness, shortness of breath, swelling legs Recommend slow position changes Current meds: atenolol, hydrochlorothiazide, and lisinopril Assessment & Plan (10/01/2024 7:13 AM EDT): Please check blood pressure daily and record DASH diet Limit caffeine Take medication as directed Contact office if chest pain, pressure, dizziness, shortness of breath, swelling legs Recommend slow position changes Current meds: atenolol, hydrochlorothiazide, and lisinopril Assessment & Plan (06/23/2024 6:31 AM EST): Please check blood pressure daily and record DASH diet Limit caffeine Take medication as directed Contact office if chest pain, pressure, dizziness, shortness of breath, swelling legs Recommend slow position changes Current meds: atenolol, hydrochlorothiazide, and lisinopril Assessment & Plan (03/20/2024 9:49 AM EDT): At goal no changes to med dose Fu in 3 months Assessment & Plan (12/20/2023 10:20 AM EDT): At goal no changes to med dose Check labs Fu in 3 months Assessment & Plan (09/13/2023 5:02 PM EDT): At goal, no changes Mixed derpdtzfuvxodx74/02/2024 Assessment & Plan (12/20/2023 10:21 AM EDT): Check labs, cont statin Gstqtwopibev52/02/2024 Assessment & Plan (06/23/2024 9:09 AM EST): Miralax prn Fluids, higher fiber foods Water: 64 oz daily GERD (gastroesophageal reflux disease)06/12/2023 Assessment & Plan (01/14/2025 6:39 AM EDT): Recommendations: freq small meals, nothing to eat or drink at least 2 hours prior to bed, limit caffeine, alcohol, as well as spicy foods Meds to limit or avoid if possible: NSAIDS Elevate HOB if possible Meds: PPI Assessment & Plan (10/01/2024 2:51 PM EDT): Recommendations: freq small meals, nothing to eat or drink at least 2 hours prior to bed, limit caffeine, alcohol, as well as spicy foods Meds to limit or avoid if possible: NSAIDS Elevate HOB if possible Meds: PPI Assessment & Plan (06/23/2024 6:32 AM EST): Recommendations: freq small meals, nothing to eat or drink at least 2 hours prior to bed, limit caffeine, alcohol, as well as spicy foods Meds to limit or avoid if possible: NSAIDS Elevate HOB if possible Current med: pantoprazole Assessment & Plan (12/20/2023 10:20 AM EDT): Sxs are controlled when taking her PPI, if does not take this not controlled Colon cancer dvbvvzwar28/02/2024reast cancer mqrjewijd49/02/2024 Assessment & Plan (06/23/2024 9:43 AM EST): Refused Recommend BSE, and yearly mammogram Assessment & Plan (06/12/2023 9:00 AM EST): Refuses all forms of breast cancer screening Antibiotic-induced yeast zzhxipaup77/02/2024 Assessment & Plan (06/12/2023 9:02 AM EST): Will provide script for diflucan Major depressive disorder, recurrent, borwnscq61/08/2017 Overview (01/14/2025): PHQ 9 score : 06/23/24 8 Assessment & Plan (01/14/2025 2:21 PM EDT): Taking effexor as directed Apprehensive about adding on meds Music, activity, needs occupied at evening Drumming Add vraylar 1.5mg daily #3 samples [id number] exp 02/02 Assessment & Plan (10/01/2024 2:59 PM EDT): Taking effexor as directed Apprehensive about adding on meds Offered to add abilify 2mg daily Music, activity, needs occupied at evening drumming Assessment & Plan (06/23/2024 9:14 AM EST): Taking effexor as directed PHQ 9 score=8 06/23/24 Assessment & Plan (03/20/2024 9:51 AM EDT): Has had some increase in depression recently, no SI/HI Declines meds, declines counseling Assessment & Plan (12/20/2023 10:21 AM EDT): Has had some increase in depression recently, no SI/HI Offered add med, she declines, offered counseling states she will think about it Resolved Problems ProblemNoted DateDiagnosed DateResolved DateVitamin iipmjmlvqr39/11/2024 01/14/2025Type 2 diabetes mellitus without wcvkiqavgqqva26 Assessment & Plan (10/01/2024 2:51 PM EDT): Check blood sugars daily, notify if <70 or >200. Take medications (pills or insulin) as directed. Monitor for s/s of hypoglycemia (sweaty, dizziness, nausea, vomiting, or shakiness). Watch for increase in thirst, urination, or appetite. Inspect feet frequently monitoring for open wounds , andalso recommend yearly eye exam. Pt should attempt to remain as physically active as chronic conditions allow, as well as trying to follow a diet low in carbohydrates, and simple sugars. Current meds; statin, glipizide, noa A1c: 7.2% Assessment & Plan (06/23/2024 9:45 AM EST): Check blood sugars daily, notify if <70 or >200. Take medications (pills or insulin) as directed. Monitor for s/s of hypoglycemia (sweaty, dizziness, nausea, vomiting, or shakiness). Watch for increase in thirst, urination, or appetite. Inspect feet frequently monitoring for open wounds , andalso recommend yearly eye exam. Pt should attempt to remain as physically active as chronic conditions allow, as well as trying to follow a diet low in carbohydrates, and simple sugars. Current meds; statin, glipizide, noa A1c: 7.0% 06/23/24 Recommend healthier snack options Assessment & Plan (03/20/2024 9:51 AM EDT): Check blood sugars daily, notify if <70 or >200. Take medications (pills or insulin) as directed. Monitor for s/s of hypoglycemia (sweaty, dizziness, nausea, vomiting, or shakiness). Watch for increase in thirst, urination, or appetite. Inspect feet frequently monitoring for open wounds , andalso recommend yearly eye exam. Pt should attempt to remain as physically active as chronic conditions allow, as well as trying to follow a diet low in carbohydrates, and simple sugars. Will send rx for new sensor, as well as reader Assessment & Plan (12/20/2023 10:21 AM EDT): Check blood sugars daily, notify if <70 or >200. Take medications (pills or insulin) as directed. Monitor for s/s of hypoglycemia (sweaty, dizziness, nausea, vomiting, or shakiness). Watch for increase in thirst, urination, or appetite. Inspect feet frequently monitoring for open wounds , andalso recommend yearly eye exam. Pt should attempt to remain as physically active as chronic conditions allow, as well as trying to follow a diet low in carbohydrates, and simple sugars. Check labs Assessment & Plan (09/13/2023 5:02 PM EDT): Check blood sugars daily, notify if <70 or >200. Take medications (pills or insulin) as directed. Monitor for s/s of hypoglycemia (sweaty, dizziness, nausea, vomiting, or shakiness). Watch for increase in thirst, urination, or appetite. Inspect feet frequently monitoring for open wounds , andalso recommend yearly eye exam. Pt should attempt to remain as physically active as chronic conditions allow, as well as trying to follow a diet low in carbohydrates, and simple sugars. Assessment & Plan (06/12/2023 8:59 AM EST): Doing well on sugars and weight loss Discussed if continued episodes of hypoglycemia may need to lower dose on glipizide UTD on eye exam and A1c test Fu in 3 months Morbid ukoyddp07/ Assessment & Plan (05/21/2024 3:10 PM EST): Discussed with patient their BMI (actual, verses recommended). We have also discussed lifestyle modifications: attempts to perform physical activity as chronic conditions allow, also to monitor dietary intake: increasing protein/fruits/veggies and lowering carb intake (unless contraindicated). Limit sodas, juices, and sugary drinks. Assessment & Plan (06/12/2023 8:27 AM EST): Has lost a total of 82 pounds since 2018 Keep going with slow and steady decrease Breast cancer screening by dgexdutkg50 Assessment & Plan (06/12/2023 8:55 AM EST): Will order cologuard Does not want to do colonoscopy, no family hx of colon cancer Dental ftnfixz84 Assessment & Plan (06/12/2023 9:01 AM EST): Cont with warm salt water rinses, will add atb Pt is going to contact the dentist Further evaluation from dentist Immunizations ImmunizationAdministration DatesNext DueInfluenza, injectable, MDCK, preservative free, eceibdkbgyet02/14/2019Influenza, seasonal, injectable, preservative free05/05/2015 Family History Medical HistoryRelationNameCommentsAlcohol abuseBrotherDaveCancerBrotherDaveCOPD FatherPaulDepressionFatherPaulDiabetesFatherPaulHeart diseaseFatherPaul HypertensionFatherPaulAsthmaMaternal GrandmotherElizabethDiabetesMaternal GrandmotherElizabethArthritisMotherCarolDepressionMotherCarolHypertensionMother CarolMental illnessMotherCarolDiabetesPaternal GrandmotherNaomiMiscarriages / StillbirthsPaternal GrandmotherNaomiRelationNameStatusCommentsBrotherDaveFather PaulDeceasedMaternal GrandmotherElizabethMotherCarolAlivePaternal Grandmother Paty Social History Tobacco UseTypesPacks/DayYears UsedDateSmoking Tobacco: FormerCigarettes1.515 Quit: 2014Smokeless Tobacco: NeverAlcohol UseStandard Drinks/WeekCommentsNever0 (1 standard drink = 0.6 oz pure alcohol)caffeine: coffee,avaaU6638 Health LiteracyAnswerDate RecordedHow often do you need to have someone help you when you read instructions, pamphlets, or other written material from your doctor or pharmacy?Never09/28/2024Humiliation, Afraid, Rape, and Kick questionnaireAnswer Date RecordedWithin the last year, have you been afraid of your partner or ex-partner?No09/28/2024Within the last year, have you been humiliated or emotionally abused in other ways by your partner or ex-partner?No09/28/2024 Within the last year, have you been kicked, hit, slapped, or otherwise physically hurt by your partner or ex-partner?No09/28/2024Within the last year, have you been raped or forced to have any kind of sexual activity by your part ner or ex-partner?No09/28/2024Social Connection and Isolation PanelAnswerDate RecordedIn a typical week, how many times do you talk on the phone with family, friends, or neighbors?Once a week09/28/2024How often do you get together with friends or relatives?Twice a week09/28/2024How often do you attend oriental orthodox or tenriism services?More than 4 times per year09/28/2024Do you belong to any clubs or organizations such as oriental orthodox groups, unions, fraternal or athletic jose ups, or school groups?Yes09/28/2024How often do you attend meetings of the clubs or organizations you belong to?More than 4 times per year09/28/2024re you , , , , never , or living with a partner? Rjgykowi74/20/2025AUDIT-CAnswerDate RecordedQ1: How often do you have a drink containing alcohol?Never09/28/2024Q2: How many drinks containing alcohol do you have on a typical day when you are drinking?Patient does not drink09/28/2024Q3: How often do you have six or more drinks on one occasion?Never09/28/2024Overall Financial Resource Strain (CARDIA)AnswerDate RecordedHow hard is it for you to pay for the very basics like food, housing, medical care, and heating?Not very hard09/28/2024PHQ-2AnswerDate RecordedPatient Health Questionnaire-2 Score4 10/01/2024[facility] - Occupational Stress QuestionnaireAnswerDate RecordedDo you feel stress - tense, restless, nervous, or anxious, or unable to sleep at night because yourmind is troubled all the time - these days?To some kfwsbq8509/28/2024Exercise Vital SignAnswerDate Recorded On average, how many days per week do you engage in moderate to strenuous exercise (like a brisk walk)?3 days09/28/2024On average, how many minutes do you engage in exercise at this level?20 min09/28/2024Hunger Vital SignAnswerDate RecordedWithin the past 12 months, you worried that your food would run out before you got the money to buymore.Never true09/28/2024Within the past 12 months, the food you bought just didn't last and you didn't have money to get more.Never true09/28/2024PRAPARE - TransportationAnswerDate RecordedIn the past 12 months, has lack of transportation kept you from medical appointments or from getting medications?No09/28/2024In the past 12 months, has lack of transportation kept you from meetings, work, or from getting things needed for daily living?No09/28/2024Housing Stability Vital SignAnswerDate RecordedIn the last 12 months, was there a time when you were not able to pay the mortgage or rent on time?No06/05/2023In the last 12 months, how many places have you lived?1 06/05/2023In the last 12 months, was there a time when you did not have a steady place to sleep or slept in ashelter (including now)?No06/05/2023Housing Stability Vital SignAnswerDate RecordedIn the last 12 months, was there a time when you were not able to pay the mortgage or rent on time?No09/28/2024In the past 12 months, how many times have you moved where you were living? At any time in the past 12 months, were you homeless or living in a penitentiary (including now)?No09/28/2024CommentsUnknownSex and Gender Information ValueDate RecordedSex Assigned at BirthNot on fileLegal MlbHpuvxv92/15/2023 6:50 PM EDTGender IdentityNot on fileSexual OrientationNot on file Last Filed Vital Signs Vital SignReadingTime TakenCommentsBlood Cvudmytq173/52001/14/2025 1:45 PM EDT Klqce6150/06/2025 1:45 PM HCZApoplrprukq74.7 ??C (98.1 ??F)01/14/2025 1:45 PM EDTRespiratory Renc629410/01/2024 2:14 PM EDTOxygen Igmqfyomvo82%01/14/2025 1:45 PM EDTInhaled Oxygen Concentration--Wlnbjq397 kg (308 lb 6.4 oz)01/27/2025 9:02 AM GTILzafzh601.6 cm (5' 4 )01/27/2025 9:02 AM EDTBody Mass Index52.9401/27/2025 9:02 AM EDT Plan of Treatment DateTypeDepartmentCare Team (Latest Contact Info)Pktjhfjwawy04/23/2026 8:30 AM ESTProcedure Visit [facility] [address] [place] [address] Zion Castelan, GREG [address] [place] [address] Health MaintenanceDue DateLast DoneCommentsCT Ojvbggmjzmzv89/24/1973Colonoscopy 1972FIT1972FOBT1972Lung Cancer Screening Shared Decision Sjurrm83 1972 7111Xyabehdoxoyqo44/24/1973Pneumococcal Vaccine: Pediatrics (0 to 5 Years) and At-Risk Patients (6 to 64 Years) (1 of 2 - PCV)09/02/1991HPV/Cotest 2002Diabetes: Urine Protein Ktmpwlyue18, 03/10/2023 COVID-19 Vaccine ( season)2025Diabetes: Retinopathy Screening Mammogram (Patient Refused), 06/12/2023 (Patient Refused)Diabetes: Hemoglobin A1C/11/2024, 10/01/2024, 06/23/2024, Additional history existsMedicare Annual Wellness (AWV)10/01/2025 10/01/2024, 10/01/2024, 09/13/2023, Additional history existsCervical Cancer Zmqszespz52/02/2027Pap Smear (Patient Refused)Colorectal Cancer Zltlmscsi79/07/2027FIT-DNAInfluenza Vaccine Ydzefcpwxxgb23/14/2019, 05/05/2015 Procedures Procedure NamePriorityDate/TimeAssociated DiagnosisCommentsPOCT GLYCOSYLATED HEMOGLOBIN (HGB A1C)Pnkvbyu8601/14/2025 1:58 PM EDT Type 2 diabetes mellitus with other specified complication, without long-term current use of insulin (HCC) LAB COLOGUARD?? COLON CANCER VFAVRXGbayqcf04/07/2024 6:39 PM EST Colon cancer screening from Last 3 Months or Most Recently Relevant to Health Maintenance Results * (ABNORMAL) POCT glycosylated hemoglobin (Hb A1C) docked device (01/14/2025 1:58 PM EDT)ComponentValueRef RangeTest MethodAnalysis TimePerformed At Pathologist SignatureHemoglobin A1C7.4Specimen (Source)Anatomical Location / LateralityCollection Method / VolumeCollection TimeReceived TimeBloodVenous blood specimen / Mamqugd8301/14/2025 1:58 PM EDT Narrative Authorizing ProviderResult TypeResult StatusLisa Hall NPPOINT OF CARE TEST ENTER/EDIT ORDERABLESFinal Result * Cologuard?? colon cancer screening (08/16/2023 6:39 PM EST)ComponentValueRef RangeTest MethodAnalysis TimePerformed AtPathologist SignatureNONINV COLON CA DNA+OCC BLD SCRN STL-MJBUhkoezqvOonkimvv74/13/2024 8:35 PM EDTEXACT [facility] (CLIA #:[id number])Comment: NEGATIVE TEST RESULT. A negative Cologuard result indicates a low likelihood that a colorectal cancer (CRC) or advanced adenoma (adenomatous polyps with more advanced pre-malignant features) ??is present. The chance that a person with a negative Cologuard test has a colorectal cancer is less than 1in 1500 (negative predictive value >99.9%) or has an advanced adenoma is less than 5.3% (negative predictive value 94.7%). These data are based on a prospective cross-sectional study of 10,000individuals at average risk for colorectal cancer who were screened with both Cologuard and colonoscopy. (Jerson T. et al, N Engl J Med 2014;370(14):1993-3255) The normal value (reference range) for this assay is negative. COLOGUARD RE-SCREENING RECOMMENDATION: Periodic colorectal cancer screening is an important part ofpreventive healthcare for asymptomatic individuals at average risk for colorectal cancer. ??Following a negative Cologuard result, the [place] [employer] and U.S. Multi-Society Task Force screening guidelines recommend a Cologuard re-screening interval of 3 years. References: [place] [employer] Guideline for Colorectal Cancer Screening: https://www.cancer.or g/cancer/uryfb-ysyrlk-gzhxgd/xvcalozqc-flzollfem-bihkwkl/acs-recommendations.htm maria luz; Jake ORTEGA, Julius HOLDER, Justine GAMING, Colorectal Cancer Screening: Recommendations for Physicians and Patients from the U.S. Multi-Society Task Force on Colorectal Cancer Screening , Am J Gastroenterology 2017; 112:7125-7107. TEST DESCRIPTION: Composite algorithmic analysis of stool DNA-biomarkers with hemoglobin immunoassay. ?? Quantitative values of individual biomarkers are not reportable and are not associated with individual biomarker result reference ranges. Cologuard is intended for colorectal cancer screening ofadults of either sex, 45 years or older, who are at average-risk for colorectal cancer (CRC). Cologuard has been approved for use by the U.S. FDA. The performance of Cologuard was established in a cross sectional study of average-risk adults aged 50-84. Cologuard performance in patients ages 45 to 49 years was estimated by sub-group analysis of near-age groups. Colonoscopies performed for a positive result may find as the most clinically significant lesion: colorectal cancer [4.0%], advanced adenoma (including sessile serrated polyps greater than or equal to 1cm diameter) [20%] or non- advanced adenoma [31%]; or no colorectal neoplasia [45%]. These estimates are derived from a prospective cross-sectional screening study of 10,000 individuals at average risk for colorectal cancer who were screened with both Cologuard and colonoscopy. (Jerson Martin et al, N Engl J Med 2014;370(14):0901-5184.) Cologuard may produce a false negative or false positive result (no colorectal cancer or precancerous polyp present at colonoscopy follow up). A negative Cologuard test result does not guarantee the absence of CRC or advanced adenoma (pre-cancer). The current Cologuard screening interval is every 3 years. ([place] [employer] and [place] Multi-Society Task Force). Cologuard performance data in a 10,000 patient pivotal study using colonoscopy as the reference method can be accessed at the following location: [email or web address]. Additional description of the Cologuard test process, warnings and precautions can be found at [email or web address]. Specimen (Source)Anatomical Location / LateralityCollection Method / Volume Collection TimeReceived TimeStool specimen (specimen)Rectal contents / Unknown 08/16/2023 6:39 PM EST08/18/2023 7:30 AM EST Narrative Authorizing ProviderResult TypeResult StatusLisa Aichholz LAB MOLECULAR DIAGNOSTICS ORDERABLESFinal ResultPerforming OrganizationAddressCity/State/ZIP CodePhone Number [employer] (CLIA #:[id number]) [address] [address], from Last 3 Months or Most Recently Relevant to Health Maintenance Insurance Care Teams Team MemberRelationshipSpecialtyStart DateEnd Date Ritesh Cain MD PCP - GeneralFamily Medicine09/13/23 Elvia Hall NP [address] [place] [id number] PCP - [place] PA02/10/24 Elvia Hall NP Nurse PractitionerFamily Medicine01/15/23 Elvia Hall NP Nurse PractitionerFaNorthside [facility]09/13/23
[2025-05-27 08:02] LABS: Hematocrit 50.8 % (36.0-48.0); Hemoglobin 16.4 g/dL (12.0-16.0); Immature Granulocytes Abs Auto 0.03 10^3/uL (0.00-0.03); Immature Granulocytes Pct Auto 0.4 % (0.0-0.5); Lymphocytes Absolute Auto 1.8 10^3/uL (1.2-3.8); Mean Corpuscular HGB Conc 32.3 g/dL (29.9-35.2); Mean Corpuscular Hemoglobin 30.4 pg (26.7-34.0); Mean Corpuscular Volume 94.1 fL (81.0-99.0); Platelet Count 262 10^3/uL (150-450); Red Blood Count 5.40 10^6/uL (4.20-5.40); White Blood Count 7.8 10^3/uL (4.0-11.0)
[2025-05-27 08:28] LABS: Glucose Urine UA >=1000 mg/dL (NEGATIVE)
[2025-05-27 08:30] LABS: Cast Seen? NONE SEEN #/LPF (NONE SEEN); Crystals Seen? None Seen #/HPF (None Seen)
[2025-05-27 11:04] LABS: Alanine Aminotransferase 28 U/L (14-59); Albumin Globulin Ratio 0.8; Albumin Level 3.5 g/dL (3.4-5.0); Alkaline Phosphatase 112 U/L (46-116); Anion Gap 10.4; Aspartate Amino Transferase 16 U/L (15-37); Blood Urea Nitrogen 15.0 mg/dL (7.0-18.0); Calcium 9.3 mg/dL (8.5-10.1); Carbon Dioxide 32.4 mmol/L (21.0-32.0); Chloride 102 mmol/L (98-107); Cholesterol 158 mg/dL (<=200); Estimated GFR (African America >60 (>=60 mL/min/1.73m^2); Estimated GFR (Non-African Ame >60 (>=60 mL/min/1.73m^2); Globulin 4.3 g/dL; Glucose 171 mg/dL (74-106); HDL Cholesterol 48 mg/dL (40-60); Magnesium 2.3 mg/dL (1.8-2.4); Potassium 3.8 mmol/L (3.5-5.1); Sodium 141 mmol/L (136-145); Thyroid Stimulating Hormone 2.719 uIU/mL (0.358-3.740); Total Protein 7.8 g/dL (6.4-8.2); Triglycerides 117 mg/dL (<=150); Uric Acid 4.4 mg/dL (2.6-6.0); VLDL CHOLESTEROL 23.4 mg/dL
== END 2025-05-27 07:35 | disposition home or self-care (01) ==
LOC: LAB 07:38
PROVIDERS: PCP Nurse Practitioner; Visit Provider Nurse Practitioner
DX: E78.2 Mixed hyperlipidemia (principal); I10 Essential (primary) hypertension; E11.9 Type 2 diabetes mellitus without complications; K21.9 Gastro-esophageal reflux disease without esophagitis; K22.2 Esophageal obstruction; E55.9 Vitamin D deficiency, unspecified; M10.9 Gout, unspecified
CPT/HCPCS: 36415; 80053; 80061; 81001; 82043; 82306; 82570; 83735; 84439; 84443; 84550; 85025